=== PATIENT | male | born 1940 | race Caucasian/White ===

== ENCOUNTER 2016-12-23 22:34 | Inpatient (IN) | payer MEDICARE ==
[2016-12-23] MEDS ORDERED: Albuterol Sulfate 2.5 mg/3 ml Neb ONE (22:49)
[2016-12-23] MEDS ORDERED: methylPREDNISolone Sod Succ/PF 125 MG/2 ML VIAL ONE (22:56)
[2016-12-23] MEDS ORDERED: Magnesium 2 GM/NS 0.9% 100 ML 2 GM in Premix Bag 1 BAG IVPB SCH (23:00)
--- NOTE | 2016-12-23 23:04 | RAD ---
CHEST ONE VIEW 12/23/16 HISTORY: Dyspnea. COMPARISON: 07/04/16 FINDINGS: The cardiac silhouette is magnified by projection. Pulmonary vasculature is unremarkable. The lungs r emain hyperinflated with scattered areas of interstitial scarring. Mediastinum is midline with aortic calcification. There is no lobar consolidation or evidence of pneumothorax. site monitor leads ov erlie the chest. IMPRESSION: 1. COPD. 2. Atherosclerosis. POS: [facility]
[2016-12-23 23:12] LABS: Modified Allen's Test POSITIVE; Sodium 134 mmol/L (135-148); Vent NO
[2016-12-23 23:13] LABS: Mode NEB
[2016-12-23 23:59] LABS: #Eosinphils 0.1 thou/uL (0.0-0.7); #Lymphocytes 0.8 thou/uL (1.20-3.40); #Monocytes 0.7 thou/uL (0.11-0.59); #Neutrophils 13.9 thou/uL (1.40-6.50); %Basophils 0.1 % (0.0-1.0); %Eosinophils 0.4 % (0.0-10.0); %Lymphocytes 4.8 % (21.0-51.0); %Monocytes 4.7 % (0.0-10.0); Hematocrit 50.1 % (42.0-52.0); Mean Platelet Volume 8.3 fL (7.4-10.4); Red Blood Cell (RBC) Count 5.38 mill/uL (4.70-6.10); White Blood Cell (WBC) Count 15.5 thou/uL (4.8-10.8)
[2016-12-24 00:03] LABS: Chloride 102 mmol/L (98-107)
[2016-12-24 00:04] LABS: Calcium 9.6 mg/dL (7.8-10.44)
[2016-12-24 00:05] LABS: Globulin 2.9 g/dL (2.4-3.5); Protein, Total 6.9 g/dL (5.8-8.1)
[2016-12-24 00:06] LABS: Anion Gap 14 mmol/L (10-20); Bilirubin, Total 0.8 mg/dL (0.2-1.2); Carbon Dioxide 22 mmol/L (23-31)
[2016-12-24 00:08] LABS: Alkaline Phosphatase 84 U/L (40-150); Calc. Creatinine Clearance 0 mL/min (70-130); Estimated GFR-MDRD 35
[2016-12-24 00:09] LABS: BUN (Urea Nitrogen) 24 mg/dL (8.4-25.7)
[2016-12-24 00:10] LABS: AST (SGOT) 27 U/L (5-34)
[2016-12-24 00:11] LABS: ALT (SGPT) 25 U/L (8-55); CK (CPK) 192 U/L (30-200); Lipase 21 U/L (8-78)
[2016-12-24 00:15] LABS: Troponin I Less than 0.010 ng/mL (< 0.028)
[2016-12-24] MEDS ORDERED: Ondansetron HCl/PF 4 MG/2 ML Vial IVP PRN (03:16)
[2016-12-24] MEDS ORDERED: Artificial Tears 18 DROP/0.9 ML EA EYE PRN (03:16)
[2016-12-24] MEDS ORDERED: Mag-Al 1200 mg/1200 mg/30 ML UDCUP PO PRN (03:16)
[2016-12-24] MEDS ORDERED: hydrALAZINE 20 MG/ML VIAL SLOW IVP PRN (03:16)
[2016-12-24] MEDS ORDERED: Eucerin (Mineral Oil/Petrolatum,White) 30 gm Jar TOP PRN (03:16)
[2016-12-24] MEDS ORDERED: Milk Of Magnesia 30 ML UDCUP PO PRN (03:16)
[2016-12-24] MEDS ORDERED: Dextrose 5% in Water 1,000 ML IV PRN (03:16)
[2016-12-24] MEDS ORDERED: Senokot 8.6 MG TAB PO PRN (03:16)
[2016-12-24] MEDS ORDERED: Dextrose 50% Abboject 50 ML SYRINGE SLOW IVP PRN (03:16)
[2016-12-24] MEDS ORDERED: Benzonatate 100 MG CAP PO PRN (03:16)
[2016-12-24] MEDS ORDERED: Sodium Chloride 0.65% Nasal 44 ML BOT EA NARE PRN (03:16)
[2016-12-24] MEDS ORDERED: Diabetic Tussin 200 MG/10 ML UDCUP PO PRN (03:16)
[2016-12-24] MEDS ORDERED: Loratadine 10 MG TAB PO PRN (03:16)
[2016-12-24] MEDS ORDERED: Ondansetron ODT 4 MG TAB PO PRN (03:16)
[2016-12-24] MEDS ORDERED: Loperamide HCl 2 MG CAP PO PRN (03:16)
[2016-12-24] MEDS ORDERED: cloNIDine 0.1 MG TAB PO PRN (03:16)
--- NOTE | 2016-12-24 04:37 | HP ---
PRIMARY CARE PHYSICIAN: Dr. Joshua Galvez and Dr. Jairon Robert REASON FOR ADMISSION: COPD exacerbation. HISTORY OF PRESENT ILLNESS: A 76-year-old male who has underlying history of COPD and diabetes type 2 as well as history of congestive heart failure who came to emergency room for evaluation of increasing shortness of breath. The patient has a history of shortness of breath for the last couple of days which has gradually getting worse. The patient was seen by primary care physician and he was given prednisone, but his condition did not improve and that is why he decided to come to the emergency room for evaluation. The patient was trying his home nebulizer machine and inhaler without any significant help. The patient denies any sick exposure. He denies any recent travel. He denies any recent upper respiratory infection. He denies any flu-like illness. The patient denies any cough with hemoptysis. He denies any UTI symptoms, constipation or diarrhea, but he does report orthopnea and he does report increasing bilateral lower extremity edema. When the patient presented to emergency room, he was slightly hypoxic. He appeared in respiratory distress. He was given oxygen and Solu-Medrol 125 mg, magnesium sulfate 2 grams and albuterol nebulization therapy. After that, the patient was slightly improved, but not to the point of his baseline. Subsequently, we decided to admit this patient on telemetry floor. PAST MEDICAL HISTORY: COPD, secondary to smoking. He used to be using oxygen at home, but now he is no longer requiring oxygen at home. History of recurrent atrial flutter required ablation, diabetes type 2. The patient is on insulin pump. He is followed by Dr. Sevilla at [facility], gastroesophageal reflux disease, CKD stage 3, gout, hypertension, dyslipidemia, anemia of kidney disease, history of TIA, history of moderate aortic regurgitation. Chronic diastolic heart failure. PAST SURGICAL HISTORY: Cardiac ablation x4. Cyst removed from tailbone. PAST PSYCHIATRIC HISTORY: Reviewed and negative. SOCIAL HISTORY: The patient is an ex-smoker. He quit smoking more than 10 years ago in 1999. He denies any alcohol abuse. He denies any illicit drug abuse. He is and lives at home with his . FAMILY HISTORY: Diabetes runs among several family members. Maternal grandmother was diagnosed with diabetes and father diagnosed with colon cancer. ALLERGIES: Patient is allergic to CLINDAMYCIN, BYETTA, SITAGLIPTIN and SULFA DRUGS. CURRENT HOME MEDICATIONS: Allopurinol 50 mg p.o. daily, aspirin 81 mg p.o. daily, Lipitor 80 mg p.o. at bedtime, Pulmicort nebulizers, Symbicort 2 puff inhalation b.i.d., calcitriol 0.25 mcg p.o. daily, Tums 1000 mg q.i.d. p.r.n., cetirizine 10 mg p.o. daily, vitamin D3 2000 units p.o. daily, Zetia 10 mg p.o. daily, ferrous sulfate 325 mg p.o. daily, Lasix 40 mg p.o. b.i.d., gabapentin 100 mg p.o. t.i.d. p.r.n., Mucinex 600 mg p.o. q.6h., Humalog insulin as per sliding scale, DuoNeb q.6h., lisinopril 2.5 mg p.o. daily, magnesium oxide 400 mg p.o. daily, Bystolic 5 mg p.o. at bedtime, potassium chloride 20 mEq p.o. b.i.d., Spiriva 18 mcg inhalation daily. EMERGENCY ROOM COURSE: The patient is given levofloxacin 750 mg, magnesium sulfate 2 grams, Solu-Medrol 125 mg, albuterol nebulization and IV fluid. REVIEW OF SYSTEMS: The following complete review of systems was negative, unless otherwise mentioned in the HPI or below: Constitutional: Weight loss or gain, ability to conduct usual activities. Skin : Rash, itching. Eyes: Double vision, pain. ENT/Mouth: Nose bleeding, neck stiffness, pain, tenderness. Cardiovascular: Palpitations, dyspnea on exertion , orthopnea. Respiratory: Shortness of breath, wheezing, cough, hemoptysis, fever or night sweats. Gastrointestinal: Poor appetite, abdominal pain, heartburn, nausea, vomiting, constipation, or diarrhea. Genitourinary: Urgency , frequency, dysuria, nocturia. Musculoskeletal: Pain, swelling. Neurologic/ Psychiatric: Anxiety, depression. Allergy/Immunologic: Skin rash, bleeding tendency. Please see my HPI for pertinent positives and negatives. All other review of systems reviewed and negative except as mentioned in the HPI. PHYSICAL EXAMINATION: VITAL SIGNS: On arrival, blood pressure 155/90, pulse 80, respiratory rate 26, saturation 86% on room air, temperature 98.1, weight 106.5 kilograms. GENERAL: The patient is currently alert, awake, mild respiratory distress. HEENT: Head is normocephalic, atraumatic. Eyes: Pupils round, reactive to light. Extraocular muscles intact. ENT: Oropharynx within normal limits. Moist mucous membranes. No oral lesions. No pharyngeal erythema, no exudates. NECK: Supple. No JVD, no thyromegaly, no carotid bruits. LUNGS: Bilateral few end expiratory wheezing heard. Air entry reduced. No rales. CARDIAC: S1, S2 regular, tachycardia, no murmur, no gallop, no rub. ABDOMEN: Soft, bowel sounds present, nontender, nondistended. No organomegaly , no mass, no suprapubic tenderness. Obesity present. EXTREMITIES: Bilateral pitting lower extremity edema noted, more distal pulsation. SKIN: Dry and warm. No rash. HEMATOLOGIC: No lymphadenopathy. PSYCHIATRIC: Normal affect. NEUROLOGIC: Nonfocal examination. The patient is moving all 4 limbs, plantar bilateral flexor. SIGNIFICANT LABS: CBC: WBC 15.5, hemoglobin 15.6, platelet 264 with a left shift. ABG: pH 7.39, CO2 35.2, O2 128.5, bicarbonate 21.8 saturation 98.7. BMP: Sodium 133, potassium 4.9, chloride 102, carbon dioxide 22, anion gap 14, BUN 24, creatinine 1.86, glucose 112, calcium 9.6. LFT: AST 27, ALT 25, alkaline phosphatase 84, albumin 4.0, lipase 21, CK 192, CK-MB 10.9, troponin I less than 0.010. BNP 54.5. EKG based on my review, normal sinus rhythm, first degree AV block, nonspecific ST-T changes. Repeat EKG showed atrial fibrillation with rapid ventricular response, nonspecific ST-T changes. Chest x-ray based on my review, COPD changes without any acute process, chronic changes noted. ASSESSMENT AND PLAN: 1. Acute respiratory failure with hypoxia, likely due to underlying chronic obstructive pulmonary disease exacerbation. We will monitor the patient's oxygen saturation on a daily basis and wean off oxygen if needed. If the patient does need oxygen saturation then will arrange home oxygen before discharge. 2. Chronic obstructive pulmonary disease exacerbation. The patient has not improved with home treatment as well as emergency room treatment did not make him up to his baseline. We will keep this patient in the hospital and continue the Pulmicort nebulization twice daily, DuoNeb q.4h. and Solu-Medrol 20 mg IV q.8h., Mucinex 600 mg q.i.d., and empiric antibiotic therapy with Levaquin 500 mg IV daily. 3. Atrial fibrillation with variable rate control. We will monitor on telemetry floor. If the patient rated remains high, then we will consider adding Cardizem bolus or digoxin p.r.n. basis. 4. Chronic kidney disease stage 3. We will monitor renal function. 5. Dyslipidemia. We will continue Lipitor 80 mg p.o. at bedtime and Zetia 10 mg p.o. daily. 6. Diabetes type 2. We will continue insulin as per aggressive sliding scale per scale. The patient wanted to turn off his insulin pump while in hospital. Upon discharge, the patient will resume his insulin pump. While in hospital we will monitor Accu-Chek a.c. and at bedtime and give him regular insulin as per aggressive sliding scale. 7. Hypertension. We will continue lisinopril 2.5 mg p.o. daily, Bystolic 5 mg p.o. at bedtime. 8. Diabetic neuropathy. We will continue with gabapentin 100 mg t.i.d. p.r.n. 9. Gout. We will continue allopurinol 150 mg p.o. daily. 10. Deep venous thrombosis prophylaxis, heparin 5000 units subcu twice daily. 11. Gastrointestinal prophylaxis, Protonix 40 mg p.o. daily. 12. Obesity with BMI 33. Dietary education given. 13. Bilateral lower extremity edema. We will continue with Lasix 20 mg IV b.i.d. 14. Chronic anticoagulation. We will check PT/INR on daily basis and based on that, we will decide whether we need to continue heparin or resume his warfarin. We will also verify his home medication. CODE STATUS: The patient is FULL CODE. The patient's is surrogate decision maker. Disposition plan based on clinical course. We are expecting patient's stay in hospital more than 2 midnights. MINNA
[2016-12-24] MEDS: Furosemide 20 MG/2 ML VIAL SLOW IVP SCH ×2 (05:37→13:50)
[2016-12-24 05:50] LABS: PTT 42.2 SEC (22.9-36.1); Prothrombin Time 26.8 SEC (12.0-14.7)
[2016-12-24 05:54] LABS: ALT (SGPT) 24 U/L (8-55); AST (SGOT) 23 U/L (5-34); Alkaline Phosphatase 82 U/L (40-150); Anion Gap 18 mmol/L (10-20); BUN (Urea Nitrogen) 27 mg/dL (8.4-25.7); Bilirubin, Total 0.7 mg/dL (0.2-1.2); Calc. Creatinine Clearance 45 mL/min (70-130); Calcium 9.2 mg/dL (7.8-10.44); Carbon Dioxide 18 mmol/L (23-31); Chloride 99 mmol/L (98-107); Estimated GFR-MDRD 31; Globulin 2.7 g/dL (2.4-3.5); Protein, Total 6.6 g/dL (5.8-8.1)
[2016-12-24] MEDS ORDERED: Furosemide 40 MG/4 ML VIAL SLOW IVP SCH (06:00)
[2016-12-24] MEDS: HumaLOG 300 UNITS/3 ML VIAL SC PRN ×4 (06:23→22:30)
[2016-12-24 06:37] LABS: Band 12 % (5-11); Hematocrit 48.4 % (42.0-52.0); Mean Platelet Volume 8.3 fL (7.4-10.4); Neutrophil 83 % (42-75); Red Blood Cell (RBC) Count 5.16 mill/uL (4.70-6.10); White Blood Cell (WBC) Count 20.1 thou/uL (4.8-10.8)
[2016-12-24] MEDS: Budesonide 0.5 MG/2 ML NEB INH SCH ×2 (07:04→18:13)
[2016-12-24] MEDS: Heparin 5,000 UNITS/ML VIAL SC SCH ×2 (09:38→20:33)
--- NOTE | 2016-12-24 11:00 | PDOC.PN ---
- Subjective Encounter Start Date: 12/24/16 Encounter Start Time: 08:00 Subjective: breathing better, still gets sob on min exertion - Objective Resuscitation Status: Resuscitation Status FULL:Full Resuscitation MAR Reviewed: Yes Vital Signs & Weight: Vital Signs (12 hours) Temp Pulse Resp BP Pulse Ox 12/24/16 10:26 84 16 12/24/16 07:25 97.5 F L 98 20 133/74 96 12/24/16 07:08 98 12/24/16 07:04 86 12 12/24/16 04:24 92 L 12/24/16 04:03 99 20 94 L 12/24/16 04:00 97.5 F L 105 H 20 128/71 95 12/24/16 03:16 94 L 12/24/16 02:49 98.8 F 103 H 20 126/80 92 L Weight Weight 242 lb I&O: 12/23/16 12/24/16 12/25/16 06:59 06:59 06:59 Intake Total 212.5 750 Output Total 75 Balance 137.5 750 Result Diagrams: 12/24/16 04:57 12/24/16 04:57 Additional Labs: Accuchecks 12/24/16 06:10 POC Glucose 304 H Phys Exam - Physical Examination HEENT: PERRLA, moist MMs Neck: no JVD, supple Respiratory: no rales, wheezing present Cardiovascular: RRR, no significant murmur Gastrointestinal: soft, non-tender, positive bowel sounds Musculoskeletal: pulses present, edema present Neurological: non-focal, moves all 4 limbs Psychiatric: A&O x 3 Dx/Plan (1) COPD (chronic obstructive pulmonary disease) Status: Chronic Qualifiers: COPD type: COPD with acute exacerbation Qualified Code(s): J44.1 - Chronic obstructive pulmonary disease with (acute) exacerbation (2) Acute and chronic respiratory failure ([id number]) Code(s): J96.20 - ACUTE AND CHR RESP FAILURE, UNSP W HYPOXIA OR HYPERCAPNIA Status: Acute Qualifiers: Respiratory failure complication: hypoxia Qualified Code(s): J96.21 - Acute and chronic respiratory failure with hypoxia (3) HTN (hypertension) Code(s): I10 - ESSENTIAL (PRIMARY) HYPERTENSION Status: Chronic Qualifiers: Hypertension type: essential hypertension Qualified Code(s): I10 - Essential (primary) hypertension (4) Dyslipidemia Code(s): E78.5 - HYPERLIPIDEMIA, UNSPECIFIED Status: Chronic (5) Metabolic acidosis Code(s): E87.2 - ACIDOSIS Status: Acute (6) Chronic kidney disease (CKD) Code(s): N18.9 - CHRONIC KIDNEY DISEASE, UNSPECIFIED Status: Chronic Qualifiers: Chronic kidney disease stage: stage 3 (moderate) Qualified Code(s): N18.3 - Chronic kidney disease, stage 3 (moderate) (7) Diabetes mellitus, insulin dependent (IDDM), controlled Code(s): E11.9 - TYPE 2 DIABETES MELLITUS WITHOUT COMPLICATIONS; Z79.4 - HVAC CONTROLS TECHNICIAN (CURRENT) USE OF INSULIN Status: Chronic (8) History of atrial flutter Code(s): Z86.79 - PERSONAL HISTORY OF OTHER DISEASES OF THE CIRCULATORY SYSTEM Status: Resolved Comment: Multiple previous ablations, currently in NSR, on Coumadin - Plan is on levaquin, solumedrol -: duonebs -: d/w -: may transfer to med floor -: glynn dotson to * . Review of Systems - Medications/Allergies Allergies/Adverse Reactions: Allergies Allergy/AdvReac Type Severity Reaction Status Date / Time exenatide [From Byetta] Allergy Severe Verified 11/17/12 04:50 sitagliptin phosphate Allergy Severe Verified 11/17/12 04:50 [From Januvia] clindamycin Allergy Intermediate Swollen Verified 11/17/12 04:48 Lips erythromycin base Allergy Intermediate Swollen Verified 11/17/12 04:48 [Erythromycin Base] Lips hydrocodone Allergy Intermediate Verified 11/17/12 04:49 Sulfa (Sulfonamide Allergy Intermediate Swollen Verified 11/17/12 04:49 Antibiotics) Lips phenol Allergy Verified 11/17/12 04:50 propoxyphene napsylate Allergy Verified 11/17/12 04:50 [From Darvocet-N 100] Medications: Current Medications Acetaminophen (Tylenol) 650 mg PO Q4H PRN PRN Reason: Headache/Fever or Pain Al Hydroxide/Mg Hydroxide (Maalox) 30 ml PO Q6H PRN PRN Reason: Heartburn or Indigestion Albuterol/Ipratropium (Duoneb) 3 ml NEB [id number] ARELY Last Admin: 12/24/16 10:26 Dose: 3 ml Albuterol/Ipratropium (Duoneb) 3 ml NEB [id number] Artificial Tears (Tears Naturale) 0 drop EA EYE PRN PRN PRN Reason: Dry Eyes Benzonatate (Tessalon) 100 mg PO Q4H PRN PRN Reason: Cough Budesonide (Pulmicort Neb Solution) 0.5 mg INH BID-RT [facility] Last Admin: 12/24/16 07:04 Dose: 0.5 mg Clonidine (Catapres) 0.1 mg PO Q4H PRN PRN Reason: Systolic BP > 180 Dextrose/Water (Dextrose 50%) 25 gm SLOW IVP PRN PRN PRN Reason: Hypoglycemia Furosemide (Lasix) 20 mg SLOW IVP 0600,1400 [facility] Last Admin: 12/24/16 05:37 Dose: 20 mg Glucagon (Glucagon) 1 mg IM PRN PRN PRN Reason: Hypoglycemia Guaifenesin (Robitussin Sf) 200 mg PO Q4H PRN PRN Reason: Cough Heparin Sodium (Porcine) (Heparin) 5,000 units SC BID [facility] Last Admin: 12/24/16 09:38 Dose: 5,000 units Hydralazine HCl (Apresoline) 10 mg SLOW IVP Q4H PRN PRN Reason: Systolic BP > 180 Dextrose/Water (D5w) 1,000 mls @ 0 mls/hr IV .Q0M PRN; As Directed PRN Reason: Hypoglycemia Insulin Human Lispro (Humalog) 0 units SC .AGGRESSIVE SLIDING PRN PRN Reason: Aggressive Correctional Scale Last Admin: 12/24/16 06:23 Dose: 11 unit Insulin Human Lispro (Humalog) 0 units SC .BEDTIME SLIDING SC PRN PRN Reason: Bedtime Correctional Scale Levofloxacin (Levaquin) 500 mg PO 0600 [facility] Loperamide HCl (Imodium) 2 mg PO PRN PRN PRN Reason: Diarrhea/Loose Stools Loratadine (Claritin) 10 mg PO DAILYPRN PRN PRN Reason: Sinus Symptoms Magnesium Hydroxide (Milk Of Magnesium) 30 ml PO DAILYPRN PRN PRN Reason: Constipation Methylprednisolone Sodium Succinate (Solu-Medrol) 20 mg IVP Q8HR [facility] Last Admin: 12/24/16 05:37 Dose: 20 mg Mineral Oil/White Petrolatum (Eucerin Cream) 0 gm TOP BIDPRN PRN PRN Reason: Dry Skin Mometasone Furoate/Formoterol Fumar (Dulera 200 Mcg/5 Mcg Inhaler) 2 puff INH BID-RT [facility] Ondansetron HCl (Zofran Odt) 4 mg PO Q6H PRN PRN Reason: Nausea/Vomiting Ondansetron HCl (Zofran) 4 mg IVP Q6H PRN PRN Reason: Nausea/Vomiting Pantoprazole Sodium (Protonix) 40 mg PO DAILY [facility] Last Admin: 12/24/16 09:39 Dose: 40 mg Senna (Senokot) 2 tab PO HSPRN PRN PRN Reason: Constipation Sodium Chloride ([place] Nasal [place] 0.65%) 0 ml EA NARE QIDPRN PRN PRN Reason: Nasal Congestion Sodium Chloride (Flush - Normal Saline) 10 ml IVF Q12HR [facility] Last Admin: 12/24/16 09:40 Dose: 10 ml Sodium Chloride (Flush - Normal Saline) 10 ml IVF PRN PRN PRN Reason: Saline Flush
[2016-12-24] MEDS: Mometasone/Formoterol 120 PUFF INHALER INH SCH (18:15)
--- NOTE | 2016-12-24 23:41 | CON ---
DATE OF CONSULTATION: 12/24/2016 HISTORY OF PRESENT ILLNESS: Edmundo Joyner is a 76-year-old gentleman who is well known to me, has sev ere end-stage COPD, secondary pneumonia, tobacco abuse, presented with a 2-day history of increased s hortness of breath and cough, unresponsive to usual medication. Initially, the sputum was yellow, th is morning it is clear. He has noticed orthopnea, PND, and lower extremity swelling. He was given prednisone tapering doses by his primary care physician 2 days ago. Yet to start his me dication. PAST MEDICAL HISTORY: COPD, chronic renal failure, probably diastolic dysfunction, severe deconditio warren, diabetes, reflux, SVT, and obesity. SOCIAL HISTORY: Former smoker, a pack a day, quit smoking 20 years ago. PAST SURGICAL HISTORY: Ablation and some kind of surgery on his back. MULTIPLE ALLERGIES: CLINDAMYCIN, ERYTHROMYCIN, SULFA. MEDICATIONS: From home includes Mucinex, Coumadin, Spiriva, Symbicort, DuoNeb, insulin, gabapentin, Lasix 40, Zetia 10, calcium, aspirin, and allopurinol. REVIEW OF SYSTEMS: Otherwise negative. PHYSICAL EXAMINATION: VITAL SIGNS: His O2 sat is 96.2 liters, temperature 97, respiration 16, and blood pressure 133/74. CHEST: Decreased breath sounds, prolonged expiration. Crackles with minimal wheezing. CARDIAC: Normal S1, S2. No gallops. ABDOMEN: Massive. EXTREMITIES: 2+ edema. LABORATORY DATA: White count 20,000, H&H 14 and 48, platelet count 262. INR is 2.4, pO2 was 128, pC O2 37, pH 7.37, 50%. Creatinine is 2.0. X-ray shows no acute infiltrates. IMPRESSION: 1. Acute on chronic respiratory failure, end-stage chronic obstructive pulmonary disease, bronchitis , has pneumonia. 2. Renal failure. 3. Previous supraventricular tachycardia. 4. Chronic diastolic dysfunction, morbid obesity, diabetes. PLAN: Continue neb treatment with Dulera, supportive care, steroids. Ambulation early. Will follow.
[2016-12-25] MEDS: HumaLOG 300 UNITS/3 ML VIAL SC PRN ×2 (06:35→17:21)
[2016-12-25] MEDS: Furosemide 20 MG/2 ML VIAL SLOW IVP SCH ×2 (06:35→13:27)
[2016-12-25] MEDS: Mometasone/Formoterol 120 PUFF INHALER INH SCH ×2 (06:51→19:30)
[2016-12-25] MEDS: Budesonide 0.5 MG/2 ML NEB INH SCH (06:51)
[2016-12-25] MEDS: Heparin 5,000 UNITS/ML VIAL SC SCH ×2 (08:28→21:39)
--- NOTE | 2016-12-25 12:10 | PRG ---
DATE OF SERVICE: 12/25/2016 SUBJECTIVE: Mr. Edmundo Joyner had a bad night last night, increased shortness breath, cough, unrespon sive to usual medication. Still getting neb treatments, steroids, and antibiotics. OBJECTIVE: VITAL SIGNS: His blood pressure is 127/71, sats are 90% on 3 liters, temperature 96, respirations 18 . CHEST: Decreased breath sounds, prolonged expiration. CARDIAC: Normal S1, S2. ABDOMEN: Soft, no masses. IMPRESSION: COPD exacerbation with bronchitis. Continue neb treatments, continue Dulera, antibiotics, supportive care. I will follow.
[2016-12-25] MEDS: guaiFENesin ER 600 MG TAB PO SCH (13:27)
--- NOTE | 2016-12-25 13:39 | PDOC.PN ---
- Subjective Encounter Start Date: 12/25/16 Encounter Start Time: 13:37 Mr. Joyner was seen today in follow-up of COPD exacerbation. He says he is not breathing very well right now. He feels worse than this morning. - Objective Resuscitation Status: Resuscitation Status FULL:Full Resuscitation MAR Reviewed: Yes Vital Signs & Weight: Vital Signs (12 hours) Temp Pulse Resp BP Pulse Ox 12/25/16 10:26 87 20 97 12/25/16 08:06 96.3 F L 93 18 128/71 96 12/25/16 08:00 97.9 F 93 18 96 12/25/16 06:45 87 24 H 88 L 12/25/16 04:00 97.9 F 92 20 143/72 H 91 L 12/25/16 03:13 88 20 82 L Weight Weight 242 lb I&O: 12/24/16 12/25/16 12/26/16 06:59 06:59 06:59 Intake Total 212.5 1520 Output Total 75 Balance 137.5 1520 Result Diagrams: 12/24/16 04:57 12/24/16 04:57 Additional Labs: Accuchecks 12/25/16 12/25/16 12/24/16 11:16 06:34 21:02 POC Glucose 245 H 233 H 254 H 12/24/16 16:53 POC Glucose 278 H Phys Exam - Physical Examination HEENT: PERRLA Respiratory: wheezing present + rales, and rhonchi Cardiovascular: RRR, no significant murmur, no rub Gastrointestinal: soft, non-tender, positive bowel sounds Musculoskeletal: edema present 1-2 + pitting edema in the lower extremities Dx/Plan - Plan * Acute on chronic respiratory failure with hypoxemia- patient symptoms are waxing and waning. Will check a stat CXR and ABG * He is receiving his scheduled dose of Lasix, and Solumedrol right now * He may need to be moved to IM if he does not improve soon * HTN- will re-start Lisinopril and bystolic * DM- blood glucose is elevated- will start Levemir- equivalent to his Lantus dose along with a SSI * AFIB- his heart rate is controlled- will re-start Coumadin and Monitor his PT/ INT.
[2016-12-25 14:01] LABS: Oxyhemoglobin 90.8 % (94.0-97.0); Sodium 126 mmol/L (135-148)
[2016-12-25 14:03] LABS: Mode NC; Modified Allen's Test POSITIVE; Vent NO
[2016-12-25] MEDS: Gabapentin 100 MG CAP PO SCH (15:00)
--- NOTE | 2016-12-25 15:21 | RAD ---
PORTABLE CHEST: Date: 12/25/16 HISTORY: Shortness of breath. COMPARISON: 12/23/16. FINDINGS: Heart size is borderline. There are atherosclerotic changes of the aorta. Lungs are clear of infiltra ritika. No signs of failure. IMPRESSION: Borderline heart size. POS: [facility]
[2016-12-25] MEDS ORDERED: Warfarin Sodium 2.5 MG TAB PO SCH (17:00)
--- NOTE | 2016-12-25 17:08 | PDOC.EVN ---
Event Note - Event Note Event Note: Returned to re-evaluate Mr. Joyner. He says he does not feel much better. He continues to have some rhocnhi and wheezing bilaterally, a little better than earlier. However he appears fatigued. CXR reviewed, as well as ABG- Will move him to [facility]. He may require BiPAP. Will notify Dr. Steve.
[2016-12-25] MEDS ORDERED: Lorazepam 2 MG/ML VIAL SLOW IVP PRN ×2 (17:10→20:31)
[2016-12-25 20:00] LABS: Sodium 126 mmol/L (135-148)
--- NOTE | 2016-12-25 20:04 | PDOC.PN ---
- Subjective Encounter Start Date: 12/25/16 Encounter Start Time: 20:00 - Objective Resuscitation Status: Resuscitation Status FULL:Full Resuscitation Vital Signs & Weight: Vital Signs (12 hours) Temp Pulse Resp BP Pulse Ox 12/25/16 19:34 97 12/25/16 19:30 97 12/25/16 19:24 96 24 H 97 12/25/16 19:00 96.9 F L 24 H 130/97 H 83 L 12/25/16 16:20 97.4 F L 93 18 134/81 94 L 12/25/16 13:51 91 24 H 12/25/16 10:26 87 20 97 12/25/16 08:06 96.3 F L 93 18 128/71 96 Weight Weight 242 lb I&O: 12/24/16 12/25/16 12/26/16 06:59 06:59 06:59 Intake Total 212.5 1520 Output Total 75 Balance 137.5 1520 Result Diagrams: 01/03/17 04:20 01/03/17 04:20 Additional Labs: Accuchecks 12/25/16 12/25/16 12/25/16 16:17 11:16 06:34 POC Glucose 273 H 245 H 233 H 12/24/16 21:02 POC Glucose 254 H Dx/Plan - Plan * .
[2016-12-25] MEDS ORDERED: Midazolam HCl 2 mg/2 ml Vial ONE (20:08)
[2016-12-25] MEDS ORDERED: Propofol 1,000 MG/100 ML VIAL IV ONE (20:09)
--- NOTE | 2016-12-25 20:27 | RAD ---
CHEST ONE VIEW 12/25/16 HISTORY: Intubation. COMPARISON: Chest one view same day. FINDINGS: Although this is a post intubation radiograph, no endotracheal tube tip is seen. IMPRESSION: No endotracheal tube tip seen. POS: [facility]
[2016-12-25 20:28] LABS: Mode 15L NONREBREATHER; Modified Allen's Test POSITIVE; Vent NO
[2016-12-25] MEDS ORDERED: Ventilator Sedation Protocol 1 EACH FS SCH (20:30)
[2016-12-25] MEDS ORDERED: Fentanyl 20 MCG/ML 250 ML IVPB SCH (20:31)
[2016-12-25] MEDS ORDERED: DISCONTINUE PREVIOUS NARCOTIC PAIN MEDICATIONS AND BENZODIAZEPINES FS SCH (20:31)
[2016-12-25] MEDS ORDERED: Morphine PF 1 MG/ML SYR IVP PRN (20:45)
[2016-12-25] MEDS: Sodium Chloride 0.9% 1,000 ML IV SCH (21:15)
[2016-12-25 21:33] LABS: Oxyhemoglobin 93.1 % (94.0-97.0); Sodium 126 mmol/L (135-148)
[2016-12-25 21:38] LABS: Mechanical Tidal Volume 500 ml; Mode SIMV; Modified Allen's Test POSITIVE; Pressure Support 10 cmH2O; Vent YES
[2016-12-25] MEDS: STERILE WATER IVPB SCH (21:58)
[2016-12-25] MEDS: CEFEPIME IVPB SCH (21:58)
--- NOTE | 2016-12-25 23:50 | PRG ---
DATE OF SERVICE: 12/25/2016 SUBJECTIVE: Edmundo Joyner was transferred to the telemetry unit early in the evening. He became prog ressively agitated and confused. He did not tolerate his BiPAP. He became further agitated, deliriu m, trying to get out of bed, took out his oxygen, his saturations were in the 70s. He was transferred to the ICU where he was clearly agitated, pupils are rolled over. I spoke to his at length. She said she wants everything to be done. She does know that his condition is such that he has end-stage COPD. Therefore, after discussing with her, it was felt that he needs to be intubated, unable to open his m outh. He was given 1 mg of Versed. He was bagged in spite of this, did not open his mouth, prepped his right nostril with lidocaine jelly, and #7.5 tube was passed with a bronchoscope via the right no stril via the vocal cords into his trachea. The tube was secured. He was bagged. Both lungs were l avaged with normal saline. No endobronchial disease was seen. There was some blood seen in the trac hea secondary to nasal intubation. He is now connected to a warm cycle respirator. OBJECTIVE: VITAL SIGNS: His sats are 99%, blood pressure is 170/80, respirations are 20. CHEST: Decreased breath sounds, prolonged expiration. CARDIAC: Sinus tachycardia. ABDOMEN: Soft. No masses. IMPRESSION: 1. Respiratory failure, end-stage chronic obstructive pulmonary disease. 2. Diabetes. 3. Encephalopathy secondary to respiratory failure. PLAN: Sedation protocol, IV antibiotics, steroids, neb treatments, supportive care. The family understands the long-term prognosis is grave. We will follow in the ICU. This is a 30-minute critical care time exclusive of the intubation.
[2016-12-26] MEDS: guaiFENesin ER 600 MG TAB PO SCH ×4 (01:30→22:12)
[2016-12-26] MEDS: Nebivolol HCl 5 MG TAB PO SCH ×2 (01:30→22:13)
[2016-12-26] MEDS: Gabapentin 100 MG CAP PO SCH ×5 (01:30→22:12)
[2016-12-26] MEDS: Insulin Detemir 100 UNITS/ML 50 UNITS in Pre-Filled Syringe SC SCH ×2 (01:32→22:13)
[2016-12-26] MEDS: Propofol 1,000 MG/100 ML VIAL IV PRN ×4 (01:33→22:09)
[2016-12-26 04:52] LABS: Anion Gap 15 mmol/L (10-20); BUN (Urea Nitrogen) 47 mg/dL (8.4-25.7); Calc. Creatinine Clearance 43 mL/min (70-130); Calcium 8.7 mg/dL (7.8-10.44); Carbon Dioxide 21 mmol/L (23-31); Chloride 94 mmol/L (98-107); Estimated GFR-MDRD 29
[2016-12-26 05:43] LABS: Prothrombin Time 31.9 SEC (12.0-14.7)
[2016-12-26 06:22] LABS: Band 6 % (5-11); Hematocrit 47.5 % (42.0-52.0); Hypochromia SLIGHT = 6-15 cells (100X) (0-5/hpf); Mean Platelet Volume 8.2 fL (7.4-10.4); Neutrophil 80 % (42-75); Red Blood Cell (RBC) Count 5.12 mill/uL (4.70-6.10); White Blood Cell (WBC) Count 27.9 thou/uL (4.8-10.8)
[2016-12-26 06:35] LABS: Oxyhemoglobin 95.3 % (94.0-97.0); Sodium 126 mmol/L (135-148)
[2016-12-26 06:36] LABS: Mechanical Tidal Volume 500 ml; Mode SIMV/PS; Modified Allen's Test POSITIVE; Pressure Support 10 cmH2O; Vent YES
[2016-12-26] MEDS: HumaLOG 300 UNITS/3 ML VIAL SC PRN ×4 (06:38→22:14)
[2016-12-26] MEDS: Mometasone/Formoterol 120 PUFF INHALER INH SCH ×2 (06:57→19:01)
[2016-12-26] MEDS: Allopurinol 100 MG TAB PO SCH ×2 (08:28→09:55)
[2016-12-26] MEDS: Lisinopril 2.5 MG TAB PO SCH ×2 (08:28→09:55)
[2016-12-26] MEDS: Calcitriol 0.25 MCG CAP PO SCH ×2 (08:28→09:55)
[2016-12-26] MEDS: Heparin 5,000 UNITS/ML VIAL SC SCH (08:34)
[2016-12-26] MEDS: Sodium Chloride 0.9% 1,000 ML IV SCH ×3 (08:37→17:27)
[2016-12-26] MEDS: STERILE WATER IVPB SCH ×2 (09:12→22:12)
[2016-12-26] MEDS: CEFEPIME IVPB SCH ×2 (09:12→22:12)
--- NOTE | 2016-12-26 09:24 | RAD ---
CHEST 1 VIEW: Date: 12/26/16 HISTORY: Respiratory distress. COMPARISON: Prior day's study. FINDINGS: Heart size is borderline for portable technique. Endotracheal tube remains in satisfactory position. The lungs are clear of infiltrates. IMPRESSION: Stable exam. POS: [facility]
--- NOTE | 2016-12-26 10:31 | PDOC.PN ---
- Subjective Encounter Start Date: 12/26/16 Encounter Start Time: 08:45 -: old records requested/rev pt is nasally intubated, sedated, bedside, - Objective Resuscitation Status: Resuscitation Status FULL:Full Resuscitation MAR Reviewed: Yes Vital Signs & Weight: Vital Signs (12 hours) Temp Pulse Resp BP Pulse Ox 12/26/16 09:59 25 H 12/26/16 09:58 96 116/64 12/26/16 09:55 96 116/64 12/26/16 08:46 97 100/53 L 12/26/16 08:28 101 H 12/26/16 08:00 98.5 F 101 H 20 100 12/26/16 07:00 98.5 F 12/26/16 06:58 90 115/64 12/26/16 06:00 20 12/26/16 03:47 98 102/68 12/26/16 03:46 100 12/26/16 01:06 99 12/26/16 01:05 99 12/26/16 00:00 25 H Weight Weight 237 lb 14.06 oz Most Recent Monitor Data Heart Rate from ECG 97 NIBP 104/81 NIBP BP-Mean 87 Respiration from ECG 19 SpO2 100 I&O: 12/25/16 12/26/16 12/27/16 06:59 06:59 06:59 Intake Total 1520 494 10 Output Total 915 95 Balance 1520 -421 -85 Result Diagrams: 12/26/16 03:33 12/26/16 03:33 Additional Labs: Accuchecks 12/26/16 12/25/16 12/25/16 06:35 22:03 16:17 POC Glucose 217 H 180 H 273 H 12/25/16 11:16 POC Glucose 245 H Radiology Reviewed by me: Yes (chest xray) EKG Reviewed by me: Yes (tachycardia) Phys Exam - Physical Examination Constitutional: NAD intubated, sedated HEENT: PERRLA, moist MMs, sclera anicteric Neck: no JVD, supple Respiratory: no wheezing, no rales, no rhonchi Cardiovascular: RRR, no significant murmur, no rub tachcardia Gastrointestinal: soft, no distention, positive bowel sounds Musculoskeletal: pulses present, edema present Lymphatic: no nodes Skin: no rash, normal turgor Dx/Plan (1) Acute metabolic encephalopathy Code(s): G93.41 - METABOLIC ENCEPHALOPATHY Status: Acute Comment: CO2 narcosis (2) Acute on chronic respiratory failure with hypoxia and hypercapnia Code(s): J96.21 - ACUTE AND CHRONIC RESPIRATORY FAILURE WITH HYPOXIA; J96.22 - ACUTE AND CHRONIC RESPIRATORY FAILURE WITH HYPERCAPNIA Status: Acute Comment : nasally intubated (3) Acute worsening of stage 3 chronic kidney disease Code(s): N18.3 - CHRONIC KIDNEY DISEASE, STAGE 3 (MODERATE) Status: Acute (4) COPD exacerbation Code(s): J44.1 - CHRONIC OBSTRUCTIVE PULMONARY DISEASE W (ACUTE) EXACERBATION Status: Acute (5) Hyponatremia Code(s): E87.1 - HYPO-OSMOLALITY AND HYPONATREMIA Status: Acute (6) Chronic anticoagulation Code(s): Z79.01 - GRAVEL ROOFER (CURRENT) USE OF ANTICOAGULANTS Status: Chronic (7) Chronic diastolic (congestive) heart failure Code(s): I50.32 - CHRONIC DIASTOLIC (CONGESTIVE) HEART FAILURE Status: Chronic (8) Diabetes mellitus, insulin dependent (IDDM), controlled Code(s): E11.9 - TYPE 2 DIABETES MELLITUS WITHOUT COMPLICATIONS; Z79.4 - RESIDENTIAL (CURRENT) USE OF INSULIN Status: Chronic (9) Diabetic neuropathy Code(s): E11.40 - TYPE 2 DIABETES MELLITUS WITH DIABETIC NEUROPATHY, UNSP Status: Chronic (10) Dyslipidemia Code(s): E78.5 - HYPERLIPIDEMIA, UNSPECIFIED Status: Chronic (11) GERD (gastroesophageal reflux disease) Code(s): K21.9 - GASTRO-ESOPHAGEAL REFLUX DISEASE WITHOUT ESOPHAGITIS Status: Chronic (12) Gout Code(s): M10.9 - GOUT, UNSPECIFIED Status: Chronic (13) HTN (hypertension) Code(s): I10 - ESSENTIAL (PRIMARY) HYPERTENSION Status: Chronic Qualifiers: Hypertension type: essential hypertension Qualified Code(s): I10 - Essential (primary) hypertension (14) Obesity (BMI 30.0-34.9) Code(s): E66.9 - OBESITY, UNSPECIFIED Status: Chronic (15) Paroxysmal atrial fibrillation Code(s): I48.0 - PAROXYSMAL ATRIAL FIBRILLATION Status: Chronic - Plan cont current plan of care, plan discussed w/ family, continue antibiotics, respiratory therapy * prognosis is guarded * vent management as per pulmonary * test result and condition discussed with bedside * medication reviewed as below * symptomatic treatment. * continue cefepime * monitor daily labs Review of Systems - Review of Systems Other: unable to review as pt is intubated and sedated - Medications/Allergies Allergies/Adverse Reactions: Allergies Allergy/AdvReac Type Severity Reaction Status Date / Time exenatide [From Byetta] Allergy Severe Verified 11/17/12 04:50 sitagliptin phosphate Allergy Severe Verified 11/17/12 04:50 [From Januvia] clindamycin Allergy Intermediate Swollen Verified 11/17/12 04:48 Lips erythromycin base Allergy Intermediate Swollen Verified 11/17/12 04:48 [Erythromycin Base] Lips hydrocodone Allergy Intermediate Verified 11/17/12 04:49 Sulfa (Sulfonamide Allergy Intermediate Swollen Verified 11/17/12 04:49 Antibiotics) Lips phenol Allergy Verified 11/17/12 04:50 propoxyphene napsylate Allergy Verified 11/17/12 04:50 [From Darvocet-N 100] Medications: Current Medications Acetaminophen (Tylenol) 650 mg PO Q4H PRN PRN Reason: Headache/Fever or Pain Al Hydroxide/Mg Hydroxide (Maalox) 30 ml PO Q6H PRN PRN Reason: Heartburn or Indigestion Albuterol/Ipratropium (Duoneb) 3 ml NEB [id number] [facility] Last Admin: 12/26/16 09:57 Dose: 3 ml Allopurinol (Zyloprim) 50 mg PO DAILY [facility] Last Admin: 12/26/16 09:55 Dose: 50 mg Artificial Tears (Tears Naturale) 0 drop EA EYE PRN PRN PRN Reason: Dry Eyes Aspirin (Aspirin Chewable) 81 mg PO DAILY [facility] Last Admin: 12/26/16 09:54 Dose: 81 mg Benzonatate (Tessalon) 100 mg PO Q4H PRN PRN Reason: Cough Calcitriol (Rocaltrol) 0.25 mcg PO DAILY [facility] Last Admin: 12/26/16 09:55 Dose: 0.25 mcg Clonidine (Catapres) 0.1 mg PO Q4H PRN PRN Reason: Systolic BP > 180 Dextrose/Water (Dextrose 50%) 25 gm SLOW IVP PRN PRN PRN Reason: Hypoglycemia Gabapentin (Neurontin) 100 mg PO TID [facility] Last Admin: 12/26/16 09:54 Dose: 100 mg Glucagon (Glucagon) 1 mg IM PRN PRN PRN Reason: Hypoglycemia Guaifenesin (Mucinex) 1,200 mg PO Q12HR [facility] Last Admin: 12/26/16 09:55 Dose: 1,200 mg Hydralazine HCl (Apresoline) 10 mg SLOW IVP Q4H PRN PRN Reason: Systolic BP > 180 Dextrose/Water (D5w) 1,000 mls @ 0 mls/hr IV .Q0M PRN; As Directed PRN Reason: Hypoglycemia Insulin Detemir 50 units/ (Miscellaneous Medication) 0.5 mls @ 0 mls/hr SC HS [facility] Last Admin: 12/26/16 01:32 Dose: 0.5 mls Cefepime HCl 1 gm/ Sterile (Water) 10 mls @ 120 mls/hr IVPB Q12HR [facility] Last Admin: 12/26/16 09:12 Dose: 10 mls Fentanyl (Fentanyl Cadd) 250 mls @ 0 mls/hr IVPB INF ARELY; Titrate PRN Reason: Protocol Stop: 01/24/17 20:31 Fentanyl Citrate (Fentanyl Bolus) 250 mls @ 0 mls/hr IVPB PRN PRN; As Directed PRN Reason: VENTILATION SEDATION PROTOCOL Stop: 01/24/17 20:31 Sodium Chloride (Normal Saline 0.9%) 1,000 mls @ 100 mls/hr IV .Q10H [facility] Last Admin: 12/26/16 09:11 Dose: Not Given Insulin Human Lispro (Humalog) 0 units SC .AGGRESSIVE SLIDING PRN PRN Reason: Aggressive Correctional Scale Last Admin: 12/26/16 06:38 Dose: 6 unit Insulin Human Lispro (Humalog) 0 units SC .BEDTIME SLIDING SC PRN PRN Reason: Bedtime Correctional Scale Last Admin: 12/24/16 22:30 Dose: 3 unit Lisinopril (Zestril) 2.5 mg PO DAILY [facility] Last Admin: 12/26/16 09:55 Dose: 2.5 mg Loperamide HCl (Imodium) 2 mg PO PRN PRN PRN Reason: Diarrhea/Loose Stools Loratadine (Claritin) 10 mg PO DAILYPRN PRN PRN Reason: Sinus Symptoms Lorazepam (Ativan) 2 mg SLOW IVP Q2H PRN PRN Reason: Anxiety to achieve Florian 2-3 Stop: 01/24/17 20:31 Magnesium Hydroxide (Milk Of Magnesium) 30 ml PO DAILYPRN PRN PRN Reason: Constipation Methylprednisolone Sodium Succinate (Solu-Medrol) 40 mg IVP Q8HR [facility] Last Admin: 12/26/16 06:38 Dose: 40 mg Mineral Oil/White Petrolatum (Eucerin Cream) 0 gm TOP BIDPRN PRN PRN Reason: Dry Skin Miscellaneous Medication (Ventilator Sedation Protocol) 1 each FS ONE [facility] Stop: 01/24/17 20:31 Mometasone Furoate/Formoterol Fumar (Dulera 200 Mcg/5 Mcg Inhaler) 2 puff INH BID-RT [facility] Last Admin: 12/26/16 06:57 Dose: Not Given Morphine Sulfate (Duramorph) 2 mg IVP Q2H PRN PRN Reason: TO ACHIEVE COOPER SCORE 2-3 Stop: 01/24/17 20:31 Nebivolol (Bystolic) 5 mg PO HS [facility] Last Admin: 12/26/16 01:30 Dose: Not Given Discontinue Previous Narcotic Pain Medications And Benzodiazepines 1 each FS .ONE [facility] Stop: 01/24/17 20:31 Ondansetron HCl (Zofran Odt) 4 mg PO Q6H PRN PRN Reason: Nausea/Vomiting Ondansetron HCl (Zofran) 4 mg IVP Q6H PRN PRN Reason: Nausea/Vomiting Pantoprazole Sodium (Protonix) 40 mg PO DAILY [facility] Last Admin: 12/26/16 09:54 Dose: 40 mg Propofol (Diprivan) 1,000 mg IV INF PRN; Protocol PRN Reason: TO ACHIEVE FLORIAN SCORE 2-3 Stop: 01/24/17 20:31 Last Admin: 12/26/16 08:37 Dose: 1,000 mg Senna (Senokot) 2 tab PO HSPRN PRN PRN Reason: Constipation Sodium Chloride ([place] Nasal [place] 0.65%) 0 ml EA NARE QIDPRN PRN PRN Reason: Nasal Congestion Last Admin: 12/24/16 20:33 Dose: 1 each Sodium Chloride (Flush - Normal Saline) 10 ml IVF Q12HR [facility] Last Admin: 12/26/16 08:29 Dose: Not Given Sodium Chloride (Flush - Normal Saline) 10 ml IVF PRN PRN PRN Reason: Saline Flush
--- NOTE | 2016-12-26 10:44 | PRG ---
DATE OF SERVICE: 12/26/2016 RENAL MEDICINE SUBJECTIVE: Mr. Joyner is a 76-year-old white male who was admitted for shortness of breath. He was d iagnosed to have COPD exacerbation. He is currently being intubated due to worsening respiratory sta tus. We are now being consulted for his chronic renal failure. His creatinine is slightly elevated from baseline. Please note he has an underlying diabetic nephropathy. REVIEW OF SYSTEMS: Not obtainable since the patient is sedated and intubated. MEDICATIONS: Currently on allopurinol 50 mg tablet daily, DuoNeb q.3 hours, aspirin 81 mg tablet onc e a day, calcitriol 0.25 mcg tablet daily, gabapentin 100 mg p.o. t.i.d., Lantus 35 units subcutaneou s b.i.d., Humalog sliding scale, Zestril 2.5 mg daily, Dulera as directed, Bystolic 5 mg at bedtime, atorvastatin 80 mg at bedtime, Protonix 40 mg tablet once a day, normal saline at 100 mL per hour. PAST MEDICAL HISTORY: Includes the followin. Type 2 diabetes mellitus. 2. Chronic renal failure from diabetic nephropathy. 3. Secondary hyperparathyroidism. 4. COPD. 5. Hyperlipidemia. 6. Diabetic neuropathy. 7. Paroxysmal AFIB. 8. He has coronary artery disease. 9. Status post TIA. PAST SURGICAL HISTORY: Patient is status post cardiac catheterization, status post cardiac ablation. SOCIAL HISTORY: The patient is a retired assistant professor of nursing. , three children. Lives in the [facility]. Used to smoke but quit in 1989. No alcohol use. No IV drug use. Sedentary lifestyle. FAMILY HISTORY: No family history of ESRD. ALLERGIES: Unknown. TRAUMA: None. IMMUNIZATION: Up-to-date. HOSPITALIZATION: Please see past medical history. PHYSICAL EXAMINATION: VITAL SIGNS: Blood pressure is 116/64, heart rate 97, respiratory rate 21, pulse ox 99%. GENERAL: Noted to be intubated, sedated and ventilator support. SKIN: Adequate turgor. HEENT: Pinkish conjunctiva. Anicteric sclerae. NECK: No neck mass, no carotid bruits, no JVD. CHEST: No deformities. LUNGS: Decreased breath sounds. Occasional wheezing. HEART: Normal sinus rhythm. No murmur, no gallops, no rubs. ABDOMEN: Globular, soft, nontender. EXTREMITIES: No edema. LABORATORY DATA AND IMAGING: Laboratories of 12/26/2016; white count 27.9, hemoglobin 14.5, sodium 1 25, potassium 5, chloride 94, carbon dioxide 21, BUN 47, creatinine 2.19, calcium is 8.7. Further review of his creatinine shows, on 12/24/2016 creatinine was 2.09. Chest x-ray, no infiltrates, no evidence of CHF. ASSESSMENT AND PLAN: 1. Chronic renal failure secondary to presumed diabetic nephropathy. 2. Acute kidney injury, superimposed prerenal azotemia. Continue current management. Agree to hold off the lisinopril. Agree with current empiric volume repletion and normal saline at 100 mL per mary r. There is no indication for any dialytic intervention. Case discussed at length with the and daughter. 3. Chronic obstructive pulmonary disease exacerbation - patient has gone into acute respiratory fail ure, currently intubated on ventilator support. Continue supportive care. Patient is on empiric joann roids as well as on ventilatory support. Overall, prognosis remains guarded.
--- NOTE | 2016-12-26 13:31 | PRG ---
DATE OF SERVICE: 12/26/2016 SUBJECTIVE: Intubated on the vent, sedated. OBJECTIVE: VITAL SIGNS: Pulse is 97, blood pressure 100/70, sats 90%, respirations 18. His I's and O's over th e last 24 hours are difficult to assess. CHEST: Decreased breath sounds with prolonged expiration. CARDIAC: Normal S1, S2. No gallops. ABDOMEN: Soft but distended. LABORATORY DATA: X-ray is clear. White count 27.9, H&H 14 and 47, platelet count 52, 80 segs, 6 paul trophils, PO2 is 97, PCO2 46, pH 7.30 rate of 20, 40%. Sodium 125, BUN and creatinine are 47 and 2.19, glucose 217. IMPRESSION: 1. Acute on chronic respiratory failure. 2. Major encephalopathy. 3. Diabetes. 4. Renal failure. 5. Electrolyte imbalance. PLAN: Continue normal saline. Await results of his echo. Minimize sedation. Discontinue the Couma din and heparin and monitor levels. Start PT, nutrition, antibiotics and steroids. We will follow. One half hour critical care time.
[2016-12-27] MEDS: Sodium Chloride 0.9% 1,000 ML IV SCH ×2 (03:00→15:33)
[2016-12-27 04:30] LABS: Prothrombin Time 31.6 SEC (12.0-14.7)
[2016-12-27 04:43] LABS: Anion Gap 13 mmol/L (10-20); BUN (Urea Nitrogen) 52 mg/dL (8.4-25.7); Calc. Creatinine Clearance 46 mL/min (70-130); Calcium 8.4 mg/dL (7.8-10.44); Carbon Dioxide 21 mmol/L (23-31); Chloride 99 mmol/L (98-107); Estimated GFR-MDRD 32
[2016-12-27 04:47] LABS: Band 4 % (5-11); Hematocrit 43.8 % (42.0-52.0); Mean Platelet Volume 7.7 fL (7.4-10.4); Neutrophil 90 % (42-75); Red Blood Cell (RBC) Count 4.69 mill/uL (4.70-6.10); White Blood Cell (WBC) Count 21.3 thou/uL (4.8-10.8)
[2016-12-27] MEDS: HumaLOG 300 UNITS/3 ML VIAL SC PRN ×4 (05:13→21:47)
[2016-12-27] MEDS: Propofol 1,000 MG/100 ML VIAL IV PRN (05:47)
[2016-12-27] MEDS: Mometasone/Formoterol 120 PUFF INHALER INH SCH ×2 (06:51→19:28)
[2016-12-27 07:12] LABS: Oxyhemoglobin 96.2 % (94.0-97.0); Sodium 128 mmol/L (135-148)
[2016-12-27 07:13] LABS: Mechanical Tidal Volume 500 ml; Mode SIMV.PSV; Modified Allen's Test POSITIVE; Pressure Support 10 cmH2O; Vent YES
--- NOTE | 2016-12-27 07:39 | RAD ---
CHEST 1 VIEW: HISTORY: Syncope. COMPARISON: 12/25/16, earlier on the same date. FINDINGS: Cardiac silhouette is magnified by projection. Pulmonary vasculature is unremarkable. Mediastinum i s midline with aortic calcification. The tip of an endotracheal catheter overlies the thoracic inlet . Lungs are hyperinflated. No lobar consolidation or pneumothorax are apparent. [employer] forces warrant officer le ads overlie the chest. IMPRESSION: Endotracheal catheter is in good radiographic position. Other findings are stable. POS: [facility]
--- NOTE | 2016-12-27 08:56 | PRG ---
DATE OF SERVICE: 12/27/2016 SUBJECTIVE: This morning he is intubated on the vent, sedated with Diprivan. PHYSICAL EXAMINATION: VITAL SIGNS: His pulse is 85, blood pressure 130/77, sats 100%, respirations are about 10. HEENT: He opens his eyes. CHEST: Chest reveals decreased breath sounds without any wheezing. CARDIAC: Normal S1, S2. ABDOMEN: Soft, no masses. X-ray shows no acute infiltrates. Blood gases show mixed metabolic respiratory acidosis. White count 21,000, H&H is 14 and 43, platelet count 193, PO2 114, PCO2 27.23 on rate of 14, 40%. So dium is 128, BUN and creatinine are otherwise unremarkable. IMPRESSION: 1. Respiratory failure. 2. Chronic obstructive pulmonary disease. 3. Diabetes. 4. Renal failure. 5. Encephalopathy. PLAN: She is not weanable at this stage. Start nutrition. Continue antibiotics, supportive care. I will follow. One-half hour critical care time.
--- NOTE | 2016-12-27 09:10 | RAD ---
CHEST 1 VIEW: HISTORY: A 76-year-old male with respiratory insufficiency. FINDINGS: NG tube and endotracheal tubes appear to be in place. NG tube has been placed since the prior stud y. Endotracheal tube is unchanged. No evidence for confluent pneumonia, overt edema, or pleural eff usion. No pneumothorax. IMPRESSION: No acute intrathoracic disease. Life support tues in place. POS: [facility]
--- NOTE | 2016-12-27 09:14 | PRG ---
DATE OF SERVICE: 12/27/2016 SUBJECTIVE: Mr. Joyner was seen for his chronic renal failure. He was essentially admitted for acute respiratory failure, COPD exacerbation. He is currently still intubated. No acute changes in the la st 12 hours. PHYSICAL EXAMINATION: VITAL SIGNS: Blood pressure is 109/64, heart rate 88, respiratory rate 23, pulse ox 99%. GENERAL: Patient is sedated, intubated on ventilator support. SKIN: Adequate turgor. HEENT: Pinkish conjunctivae. Anicteric sclerae. NECK: No neck mass, no carotid bruits. No JVD. CHEST: No deformities. LUNGS: Decreased breath sounds. No wheezing, no crackles. HEART: Normal sinus rhythm. No murmur, no gallops, no rubs. ABDOMEN: Globular, soft, nontender. No masses. EXTREMITIES: No edema, no deformities. MEDICATIONS: 12/27/2016 - Reviewed. LABORATORIES: 12/27/2016 - White count 21.3, hemoglobin 14, hematocrit 43.8. Sodium 128, potassium 4.8, chloride 99, carbon dioxide 21, BUN 52, creatinine 2.03, glucose 208, calcium 8.4. Chest x-ray was clear. ASSESSMENT AND PLAN: 1. Chronic renal failure, relatively stable renal function. Creatinine 2.03 is slightly improved fr om yesterday were it was at 2.19, it is nearing baseline. There is no indication for any dialytic in tervention. Continue gentle volume repletion with this patient. 2. Acute respiratory failure secondary to chronic obstructive pulmonary disease exacerbation. Awa nt currently on steroids and empiric IV antibiotics. Continue current management. Pulmonary following. Overall, prognosis remains guarded. The patient's renal function continues to remain stable.
[2016-12-27] MEDS: Calcitriol 0.25 MCG CAP PO SCH (09:45)
[2016-12-27] MEDS: Gabapentin 100 MG CAP PO SCH ×3 (09:45→21:42)
[2016-12-27] MEDS: Lisinopril 2.5 MG TAB PO SCH (09:45)
[2016-12-27] MEDS: Allopurinol 100 MG TAB PO SCH (09:46)
[2016-12-27] MEDS: guaiFENesin ER 600 MG TAB PO SCH ×2 (09:46→21:42)
[2016-12-27] MEDS: CEFEPIME IVPB SCH ×2 (10:13→21:41)
[2016-12-27] MEDS: STERILE WATER IVPB SCH ×2 (10:13→21:41)
--- NOTE | 2016-12-27 10:39 | PDOC.PN ---
- Subjective Encounter Start Date: 12/27/16 Encounter Start Time: 10:00 today sedation reduced, pt is stable on vent, family bedside Patient seen and examined. No overnight events - Objective Resuscitation Status: Resuscitation Status FULL:Full Resuscitation MAR Reviewed: Yes Vital Signs & Weight: Vital Signs (12 hours) Pulse Resp BP Pulse Ox 12/27/16 10:27 95 139/69 12/27/16 10:25 95 22 H 99 12/27/16 09:45 96 114/61 12/27/16 06:52 86 109/64 12/27/16 06:48 88 23 H 99 12/27/16 06:00 19 12/27/16 04:00 28 H 12/27/16 03:09 83 99/54 L 12/27/16 03:08 100 12/27/16 02:00 14 12/27/16 01:03 82 12/27/16 01:02 100 12/27/16 00:00 16 Weight Weight 237 lb 14.06 oz Most Recent Monitor Data Heart Rate from ECG 96 NIBP 139/69 NIBP BP-Mean 76 Respiration from ECG 18 SpO2 100 I&O: 12/26/16 12/27/16 12/28/16 06:59 06:59 06:59 Intake Total 494 2656 Output Total 915 1300 Balance -421 1356 Result Diagrams: 12/27/16 04:02 12/27/16 04:02 Additional Labs: Accuchecks 12/27/16 12/27/16 12/26/16 04:53 00:43 19:55 POC Glucose 183 H 171 H 168 H 12/26/16 12/26/16 15:58 10:54 POC Glucose 206 H 247 H Radiology Reviewed by me: Yes (chest xray) EKG Reviewed by me: Yes (nsr) Phys Exam - Physical Examination Constitutional: NAD HEENT: PERRLA, moist MMs, sclera anicteric Neck: no JVD, supple Respiratory: no wheezing, no rales, no rhonchi Cardiovascular: RRR, no significant murmur, no rub Gastrointestinal: soft, no distention, positive bowel sounds Musculoskeletal: no edema, pulses present scd+ Lymphatic: no nodes Skin: no rash, normal turgor Dx/Plan (1) Acute metabolic encephalopathy Code(s): G93.41 - METABOLIC ENCEPHALOPATHY Status: Acute Comment: CO2 narcosis (2) Acute on chronic respiratory failure with hypoxia and hypercapnia Code(s): J96.21 - ACUTE AND CHRONIC RESPIRATORY FAILURE WITH HYPOXIA; J96.22 - ACUTE AND CHRONIC RESPIRATORY FAILURE WITH HYPERCAPNIA Status: Acute Comment : nasally intubated (3) Acute worsening of stage 3 chronic kidney disease Code(s): N18.3 - CHRONIC KIDNEY DISEASE, STAGE 3 (MODERATE) Status: Acute (4) COPD exacerbation Code(s): J44.1 - CHRONIC OBSTRUCTIVE PULMONARY DISEASE W (ACUTE) EXACERBATION Status: Acute (5) Hyponatremia Code(s): E87.1 - HYPO-OSMOLALITY AND HYPONATREMIA Status: Acute (6) Chronic anticoagulation Code(s): Z79.01 - REAGENT TENDER (CURRENT) USE OF ANTICOAGULANTS Status: Chronic (7) Chronic diastolic (congestive) heart failure Code(s): I50.32 - CHRONIC DIASTOLIC (CONGESTIVE) HEART FAILURE Status: Chronic (8) Diabetes mellitus, insulin dependent (IDDM), controlled Code(s): E11.9 - TYPE 2 DIABETES MELLITUS WITHOUT COMPLICATIONS; Z79.4 - CORRECTION (CURRENT) USE OF INSULIN Status: Chronic (9) Diabetic neuropathy Code(s): E11.40 - TYPE 2 DIABETES MELLITUS WITH DIABETIC NEUROPATHY, UNSP Status: Chronic (10) Dyslipidemia Code(s): E78.5 - HYPERLIPIDEMIA, UNSPECIFIED Status: Chronic (11) GERD (gastroesophageal reflux disease) Code(s): K21.9 - GASTRO-ESOPHAGEAL REFLUX DISEASE WITHOUT ESOPHAGITIS Status: Chronic (12) Gout Code(s): M10.9 - GOUT, UNSPECIFIED Status: Chronic (13) HTN (hypertension) Code(s): I10 - ESSENTIAL (PRIMARY) HYPERTENSION Status: Chronic Qualifiers: Hypertension type: essential hypertension Qualified Code(s): I10 - Essential (primary) hypertension (14) Obesity (BMI 30.0-34.9) Code(s): E66.9 - OBESITY, UNSPECIFIED Status: Chronic (15) Paroxysmal atrial fibrillation Code(s): I48.0 - PAROXYSMAL ATRIAL FIBRILLATION Status: Chronic - Plan cont current plan of care, plan discussed w/ family, continue antibiotics, respiratory therapy * discussed with family * continue IV cefepime * medication reviewed as below * symptomatic treatment * vent management per pulmonary * will monitor. Review of Systems - Review of Systems Other: unable to review as pt is intubated and sedated - Medications/Allergies Allergies/Adverse Reactions: Allergies Allergy/AdvReac Type Severity Reaction Status Date / Time exenatide [From Byetta] Allergy Severe Verified 11/17/12 04:50 sitagliptin phosphate Allergy Severe Verified 11/17/12 04:50 [From Januvia] clindamycin Allergy Intermediate Swollen Verified 11/17/12 04:48 Lips erythromycin base Allergy Intermediate Swollen Verified 11/17/12 04:48 [Erythromycin Base] Lips hydrocodone Allergy Intermediate Verified 11/17/12 04:49 Sulfa (Sulfonamide Allergy Intermediate Swollen Verified 11/17/12 04:49 Antibiotics) Lips phenol Allergy Verified 11/17/12 04:50 propoxyphene napsylate Allergy Verified 11/17/12 04:50 [From Darvocet-N 100] Medications: Current Medications Acetaminophen (Tylenol) 650 mg PO Q4H PRN PRN Reason: Headache/Fever or Pain Al Hydroxide/Mg Hydroxide (Maalox) 30 ml PO Q6H PRN PRN Reason: Heartburn or Indigestion Albuterol/Ipratropium (Duoneb) 3 ml NEB [id number] [facility] Last Admin: 12/27/16 10:25 Dose: 3 ml Allopurinol (Zyloprim) 50 mg PO DAILY [facility] Last Admin: 12/27/16 09:46 Dose: 50 mg Artificial Tears (Tears Naturale) 0 drop EA EYE PRN PRN PRN Reason: Dry Eyes Aspirin (Aspirin Chewable) 81 mg PO DAILY [facility] Last Admin: 12/27/16 09:45 Dose: 81 mg Benzonatate (Tessalon) 100 mg PO Q4H PRN PRN Reason: Cough Calcitriol (Rocaltrol) 0.25 mcg PO DAILY [facility] Last Admin: 12/27/16 09:45 Dose: 0.25 mcg Clonidine (Catapres) 0.1 mg PO Q4H PRN PRN Reason: Systolic BP > 180 Dextrose/Water (Dextrose 50%) 25 gm SLOW IVP PRN PRN PRN Reason: Hypoglycemia Gabapentin (Neurontin) 100 mg PO TID [facility] Last Admin: 12/27/16 09:45 Dose: 100 mg Glucagon (Glucagon) 1 mg IM PRN PRN PRN Reason: Hypoglycemia Guaifenesin (Mucinex) 1,200 mg PO Q12HR [facility] Last Admin: 12/27/16 09:46 Dose: 1,200 mg Hydralazine HCl (Apresoline) 10 mg SLOW IVP Q4H PRN PRN Reason: Systolic BP > 180 Dextrose/Water (D5w) 1,000 mls @ 0 mls/hr IV .Q0M PRN; As Directed PRN Reason: Hypoglycemia Insulin Detemir 50 units/ (Miscellaneous Medication) 0.5 mls @ 0 mls/hr SC HS [facility] Last Admin: 12/26/16 22:13 Dose: 0.5 mls Cefepime HCl 1 gm/ Sterile (Water) 10 mls @ 120 mls/hr IVPB Q12HR [facility] Last Admin: 12/27/16 10:13 Dose: 10 mls Fentanyl (Fentanyl Cadd) 250 mls @ 0 mls/hr IVPB INF [facility]; Titrate PRN Reason: Protocol Stop: 01/24/17 20:31 Last Admin: 12/27/16 09:58 Dose: 250 mls Fentanyl Citrate (Fentanyl Bolus) 250 mls @ 0 mls/hr IVPB PRN PRN; As Directed PRN Reason: VENTILATION SEDATION PROTOCOL Stop: 01/24/17 20:31 Sodium Chloride (Normal Saline 0.9%) 1,000 mls @ 100 mls/hr IV .Q10H [facility] Last Admin: 12/27/16 03:00 Dose: 1,000 mls Insulin Human Lispro (Humalog) 0 units SC .AGGRESSIVE SLIDING PRN PRN Reason: Aggressive Correctional Scale Last Admin: 12/27/16 05:13 Dose: 3 unit Insulin Human Lispro (Humalog) 0 units SC .BEDTIME SLIDING SC PRN PRN Reason: Bedtime Correctional Scale Last Admin: 12/24/16 22:30 Dose: 3 unit Lisinopril (Zestril) 2.5 mg PO DAILY [facility] Last Admin: 12/27/16 09:45 Dose: 2.5 mg Loperamide HCl (Imodium) 2 mg PO PRN PRN PRN Reason: Diarrhea/Loose Stools Loratadine (Claritin) 10 mg PO DAILYPRN PRN PRN Reason: Sinus Symptoms Lorazepam (Ativan) 2 mg SLOW IVP Q2H PRN PRN Reason: Anxiety to achieve Florian 2-3 Stop: 01/24/17 20:31 Magnesium Hydroxide (Milk Of Magnesium) 30 ml PO DAILYPRN PRN PRN Reason: Constipation Methylprednisolone Sodium Succinate (Solu-Medrol) 40 mg IVP Q8HR [facility] Last Admin: 12/27/16 05:47 Dose: 40 mg Mineral Oil/White Petrolatum (Eucerin Cream) 0 gm TOP BIDPRN PRN PRN Reason: Dry Skin Mometasone Furoate/Formoterol Fumar (Dulera 200 Mcg/5 Mcg Inhaler) 2 puff INH BID-RT [facility] Last Admin: 12/27/16 06:51 Dose: 2 puff Morphine Sulfate (Duramorph) 2 mg IVP Q2H PRN PRN Reason: TO ACHIEVE COOPER SCORE 2-3 Stop: 01/24/17 20:31 Nebivolol (Bystolic) 5 mg PO HS [facility] Last Admin: 12/26/16 22:13 Dose: 5 mg Ondansetron HCl (Zofran Odt) 4 mg PO Q6H PRN PRN Reason: Nausea/Vomiting Ondansetron HCl (Zofran) 4 mg IVP Q6H PRN PRN Reason: Nausea/Vomiting Pantoprazole Sodium (Protonix) 40 mg PO DAILY [facility] Last Admin: 12/27/16 10:06 Dose: Not Given Propofol (Diprivan) 1,000 mg IV INF PRN; Protocol PRN Reason: TO ACHIEVE FLORIAN SCORE 2-3 Stop: 01/24/17 20:31 Last Admin: 12/27/16 05:47 Dose: 1,000 mg Senna (Senokot) 2 tab PO HSPRN PRN PRN Reason: Constipation Sodium Chloride ([place] Nasal [place] 0.65%) 0 ml EA NARE QIDPRN PRN PRN Reason: Nasal Congestion Last Admin: 12/24/16 20:33 Dose: 1 each Sodium Chloride (Flush - Normal Saline) 10 ml IVF Q12HR [facility] Last Admin: 12/27/16 10:06 Dose: 10 ml Sodium Chloride (Flush - Normal Saline) 10 ml IVF PRN PRN PRN Reason: Saline Flush Last Admin: 12/26/16 14:48 Dose: 10 ml
[2016-12-27] MEDS ORDERED: Sterile Water 10 ML ONE (15:05)
[2016-12-27] MEDS: Nebivolol HCl 5 MG TAB PO SCH (21:41)
[2016-12-27] MEDS: Insulin Detemir 100 UNITS/ML 50 UNITS in Pre-Filled Syringe SC SCH (21:44)
[2016-12-28] MEDS: HumaLOG 300 UNITS/3 ML VIAL SC PRN ×4 (00:09→16:26)
[2016-12-28] MEDS: Sodium Chloride 0.9% 1,000 ML IV SCH ×2 (00:10→11:00)
[2016-12-28 04:38] LABS: Prothrombin Time 27.4 SEC (12.0-14.7)
[2016-12-28 04:43] LABS: #Lymphocytes 0.4 thou/uL (1.20-3.40); #Monocytes 1.1 thou/uL (0.11-0.59); #Neutrophils 17.1 thou/uL (1.40-6.50); %Eosinophils 0.2 % (0.0-10.0); %Monocytes 5.8 % (0.0-10.0); Hematocrit 42.6 % (42.0-52.0); Mean Platelet Volume 8.1 fL (7.4-10.4); Red Blood Cell (RBC) Count 4.47 mill/uL (4.70-6.10); White Blood Cell (WBC) Count 18.6 thou/uL (4.8-10.8)
[2016-12-28 04:48] LABS: Anion Gap 11 mmol/L (10-20); BUN (Urea Nitrogen) 64 mg/dL (8.4-25.7); Calc. Creatinine Clearance 45 mL/min (70-130); Calcium 8.3 mg/dL (7.8-10.44); Carbon Dioxide 21 mmol/L (23-31); Chloride 103 mmol/L (98-107); Estimated GFR-MDRD 31
[2016-12-28] MEDS: Mometasone/Formoterol 120 PUFF INHALER INH SCH ×2 (07:32→18:37)
--- NOTE | 2016-12-28 07:35 | EKG ---
Test Reason : STAT Blood Pressure : / mmHG Vent. Rate : 134 BPM Atrial Rate : 134 BPM P-R Int : 000 ms QRS Dur : 090 ms QT Int : 296 ms P-R-T Axes : 075 -71 074 degrees QTc Int : 442 ms Sinus tachycardia with 1st degree A-V block Left axis deviation Possible Inferior infarct , age undetermined Abnormal ECG When compared with ECG of 24-DEC-2016 00:31, (Unconfirmed) Sinus rhythm has replaced Atrial fibrillation Borderline criteria for Inferior infarct are now Present Confirmed by CHRISTIAN ESPINO, SDipesh ([id number]) on 12/28/2016 7:35:06 AM Referred By: RADHA Confirmed By:DR. Néstor GONZALES MD
--- NOTE | 2016-12-28 08:13 | PRG ---
DATE OF SERVICE: 12/28/2016 SUBJECTIVE: The patient is seen and examined at bedside. He is in ICU bed 8. He is intubated and s edated. He is on FiO2 of 40% at this point. PHYSICAL EXAMINATION: VITAL SIGNS: Blood pressure is 109/54, pulse is 94, pulse ox is 98%, respiratory rate is 10. HEENT: His pupils are midline, 3 mm, symmetric with some response to light. Conjunctivae somewhat r eddish. He is nasally intubated. LUNGS: Bilateral rales present at both bases. No wheezing. HEART: S1, S2 normal, no S3, no S4, somewhat distant. No murmur. ABDOMEN: Somewhat distended. Bowel sounds are present. No organomegaly. EXTREMITIES: 1+ peripheral edema in the upper extremities and 1-2+ peripheral edema in the lower ext remities. NEUROLOGIC: Postponed since he is under the influence of sedation. LABORATORY: White count of 18.6, hemoglobin 13.5, hematocrit 42.6, platelet count is 199,000, neutro phils 91.9, INR 2.4, PTT of 27.4, sodium 130, potassium 5.1, chloride 103, CO2 21, BUN 64, creatinine 1.06, glycemics ranging from 183 to 279, calcium 8.3. MICROBIOLOGY: None. X-ray of the chest pending. IMPRESSION: 1. Acute chronic respiratory failure with hypoxia and hypercapnia. The patient is intubated. Pulmo nologist is planning to intubate him orally. He is on IV cefepime, IV steroids and nebulizers. We w ill continue all those treatments. 2. Acute metabolic encephalopathy on sedation now. 3. Acute worsening of stage 3 chronic kidney disease with creatinine at 2.06 today. The patient is receiving IV fluids at 100 mL per hour. Nephrology is managing the volume and fluids. He is positiv e for 2500 mL for the last 24 hours. 4. Hyponatremia with hyposmolarity. 5. Chronic anticoagulation with INR of 2.4. 6. Chronic diastolic congestive heart failure. 7. Diabetes mellitus. His glycemia is ranging above 200s almost all the time, we will add to his 50 units of Levemir 10 units this morning and continue the sliding scale with aggressive protocol every 4 hours. 8. Diabetic neuropathy, chronic. 9. Dyslipidemia, chronic. 10. History of gout, chronic. 11. Hypertension, stable. 12. Obesity, chronic. 13. History of paroxysmal atrial fibrillation. PLAN: Continue ventilator management per Pulmonary. Continue IV cefepime. Continue IV steroids and DuoNebs, add 10 units of Levemir to his current protocol which is 50 units of Levemir at bedtime plu s sliding scale with aggressive protocol every 4 hours. We will continue his Protonix for PUD prophy laxis and will continue his supportive care in the Intensive Care Unit.
--- NOTE | 2016-12-28 08:21 | PRG ---
DATE OF SERVICE: 12/28/2016 This morning he is off his fentanyl. He has received 80 mcg over the night. He is awake, responsive . PHYSICAL EXAMINATION: VITAL SIGNS: Pulse 107, blood pressure is 105/50, sats are 90%, respirations 13. CHEST: Chest reveals decreased breath sounds without any wheezing. CARDIAC: Normal S1, S2. ABDOMEN: Soft, no masses. His x-ray still looks normal. His labs shows slightly increasing azotemia. BUN 64, creatinine 2.6. White count 18,000. H&H 13 an d 42. Sodium 130. IMPRESSION: 1. Renal failure, chronic. 2. Respiratory failure. 3. End-stage chronic obstructive pulmonary disease. 4. Diabetes. PLAN: Will try and change his nasal ET tube to oral. Continue slow weaning. Supportive care and nu trition. One-half hour critical care time.
[2016-12-28] MEDS: Lisinopril 2.5 MG TAB PO SCH (09:14)
[2016-12-28] MEDS: CEFEPIME IVPB SCH ×2 (09:14→20:21)
[2016-12-28] MEDS: STERILE WATER IVPB SCH ×2 (09:14→20:21)
[2016-12-28] MEDS: Calcitriol 0.25 MCG CAP PO SCH (09:14)
[2016-12-28] MEDS: Gabapentin 100 MG CAP PO SCH ×3 (09:15→20:21)
[2016-12-28] MEDS: Allopurinol 100 MG TAB PO SCH (09:15)
[2016-12-28] MEDS: guaiFENesin ER 600 MG TAB PO SCH ×2 (09:15→20:21)
[2016-12-28] MEDS: Insulin Detemir 100 UNITS/ML 10 UNITS in Pre-Filled Syringe 1 EACH SC SCH (09:16)
--- NOTE | 2016-12-28 09:20 | RAD ---
PORTABLE SEMIUPRIGHT FRONTAL CHEST RADIOGRAPH: Date: 12-28-16 Comparison: 12-27-16 History: Ventilated patient. FINDINGS: Portable technique limits detailed assessment. The region of the thoracic inlet is limited. There may be an endotracheal tube terminating at the lev el of the clavicles, difficult to discretely visualize. Nasogastric tube extends into upper abdomen. Mild increased linear interstitial densities noted bilaterally, stable. Stable prominence of the card iac silhouette noted. No pneumothorax, pleural fluid, lobar consolidation, or alveolar edema. IMPRESSION: Lines and tubes as above. POS: [facility]
--- NOTE | 2016-12-28 10:36 | PRG ---
DATE OF SERVICE: 12/28/2016 SUBJECTIVE: Mr. Joyner is a 76-year-old white male being followed up for his chronic renal failure. He was admitted for COPD exacerbation and went into acute respiratory failure and intubated. The douglas n is to wean him off from the ventilator today. PHYSICAL EXAMINATION: VITAL SIGNS: Blood pressure is 135/71, heart rate 93, respiratory rate 23, pulse ox 99%. GENERAL: Patient is arousable, intubated on ventilator support. SKIN: Adequate turgor. HEENT: Pinkish conjunctivae. Anicteric sclerae. NECK: No neck mass, no carotid bruits, no JVD. CHEST: No deformities. LUNGS: Decreased breath sounds. HEART: Normal sinus rhythm. No murmur, no gallops, no rubs. ABDOMEN: Globular, soft, nontender, no masses. EXTREMITIES: No edema, no deformities. MEDICATIONS: 12/28/2016 - Reviewed. LABORATORIES: 12/28/2016 - White count 18.6, hemoglobin 13.5, sodium 130, potassium 5.1, chloride 10 3, carbon dioxide 21, BUN 64, creatinine 2.05, glucose 279, calcium 8.3. ASSESSMENT AND PLAN: 1. Acute kidney injury/chronic renal failure, stabilizing renal function. Creatinine is noted at 2. 06, which is about baseline. Continue current management. No indication for any dialytic interventi on. I agree with gentle volume repletion. 2. Acute respiratory failure. Continue supportive care, on empiric IV antibiotics. The plan is to consider weaning him off from the ventilator. No indication for any dialytic intervention. I agree with current management.
[2016-12-28] MEDS ORDERED: DC Sedation Protocol FS ONE (10:47)
[2016-12-28] MEDS: Nebivolol HCl 5 MG TAB PO SCH (20:35)
[2016-12-28] MEDS: Insulin Detemir 100 UNITS/ML 50 UNITS in Pre-Filled Syringe SC SCH (21:48)
[2016-12-29 04:57] LABS: Prothrombin Time 22.3 SEC (12.0-14.7)
[2016-12-29 05:15] LABS: Anion Gap 11 mmol/L (10-20); BUN (Urea Nitrogen) 66 mg/dL (8.4-25.7); Calc. Creatinine Clearance 50 mL/min (70-130); Calcium 8.8 mg/dL (7.8-10.44); Carbon Dioxide 23 mmol/L (23-31); Chloride 110 mmol/L (98-107); Estimated GFR-MDRD 35
[2016-12-29 05:16] LABS: Band 1 % (5-11); Hematocrit 45.2 % (42.0-52.0); Mean Platelet Volume 7.6 fL (7.4-10.4); Neutrophil 88 % (42-75); Red Blood Cell (RBC) Count 4.81 mill/uL (4.70-6.10); White Blood Cell (WBC) Count 22.6 thou/uL (4.8-10.8)
[2016-12-29] MEDS: Sodium Chloride 0.9% 1,000 ML IV SCH ×2 (05:28→13:39)
[2016-12-29] MEDS ORDERED: Laxative Of Choice PO PRN (08:02)
[2016-12-29] MEDS ORDERED: Bisacodyl 10 MG SUPP PR PRN (08:02)
[2016-12-29] MEDS: Mometasone/Formoterol 120 PUFF INHALER INH SCH ×2 (08:10→18:44)
--- NOTE | 2016-12-29 08:32 | PRG ---
DATE OF SERVICE: 12/29/2016 He was extubated yesterday. He had bleeding from his nostril, but otherwise he is doing better, stil l very weak, coughing. PHYSICAL EXAMINATION: VITAL SIGNS: Sats 94 on 3 liters, blood pressure 159/83, respirations 18. His I's and O's are 3680 in, 1196 out. CHEST: Chest revealed decreased breath sounds with minimal wheezing. CARDIAC: Normal S1-S2. ABDOMEN: Soft. No masses. LABORATORY: White count 13,000, H&H 14 and 43, platelet count normal. BUN and creatinine are 66 and 1.8, sodium 139. IMPRESSION: 1. Increasing azotemia. 2. Chronic obstructive pulmonary disease, end-stage. 3. Chronic pain. PLAN: Continue neb treatments, supportive care. Steroids. All cultures are so far negative. Maritza carrera is to see him today. Dulcolax suppositories given. Continue steroids, neb treatments. I will follow. One-half hour of critical care time.
[2016-12-29] MEDS: STERILE WATER IVPB SCH ×2 (09:08→20:57)
[2016-12-29] MEDS: Insulin Detemir 100 UNITS/ML 10 UNITS in Pre-Filled Syringe 1 EACH SC SCH (09:08)
[2016-12-29] MEDS: CEFEPIME IVPB SCH ×2 (09:08→20:57)
[2016-12-29] MEDS: HumaLOG 300 UNITS/3 ML VIAL SC PRN (09:11)
--- NOTE | 2016-12-29 09:23 | RAD ---
ONE VIEW CHEST: History: Respiratory distress. Comparison: 12-28-16 FINDINGS: Interval removal of endotracheal tube. Chronic change in the lung parenchyma. No pneumothorax. Lungs are hyperinflated. IMPRESSION: Interval removal of endotracheal tube. POS: [facility]
--- NOTE | 2016-12-29 09:34 | PRG ---
DATE OF SERVICE: 12/29/2016 RENAL MEDICINE SUBJECTIVE: Mr. Joyner is a 76-year-old white male being followed by the renal service for his chronic renal failure. Please note patient came in with shortness of breath. He went into acute respirator y failure secondary to COPD exacerbation. He was subsequently intubated. He is currently extubated and off ventilator. This morning, he is feeling better. He is somewhat lethargic. PHYSICAL EXAMINATION: VITAL SIGNS: Blood pressure 159/83, heart rate 122, respiratory rate 30, and pulse ox is 84%. GENERAL: Noted to be awake, sitting comfortable, not in overt distress. SKIN: Adequate turgor. HEENT: Pinkish conjunctivae and anicteric sclerae. NECK: No neck mass, no carotid bruits, no JVD. CHEST: No deformities. LUNGS: Decreased breath sounds. HEART: Tachycardic. No murmur, no gallops, no rubs. ABDOMEN: Globular, soft, nontender. EXTREMITIES: No edema, no deformities. MEDICATIONS: Medications of 12/29/2016 was reviewed. LABORATORY DATA: Laboratories of 12/29/2016; white count 22.6, hemoglobin 14.2. Sodium 139, potassi um 4.5, chloride 110, carbon dioxide 23, BUN 66, creatinine 1.87. GFR 35 mL per minute, glucose 190, calcium 8.8. ASSESSMENT AND PLAN: 1. Acute kidney injury on top of his chronic renal failure, slowly improving creatinine. Most recen t creatinine is now 1.87. Previously, creatinine peaked at value of 2.19. No indication for any noble lytic intervention. Continue gentle volume repletion. Currently on normal saline at 75 mL per hour. 2. Acute respiratory failure - much improved. Patient extubated, currently on empiric steroids and IV antibiotics. Pulmonary is following.
[2016-12-29] MEDS: Calcitriol 0.25 MCG CAP PO SCH (10:29)
[2016-12-29] MEDS: Allopurinol 100 MG TAB PO SCH (10:29)
[2016-12-29] MEDS: Gabapentin 100 MG CAP PO SCH ×3 (10:30→20:42)
[2016-12-29] MEDS: guaiFENesin ER 600 MG TAB PO SCH ×2 (10:30→20:57)
--- NOTE | 2016-12-29 12:08 | PDOC.PN ---
- Subjective Encounter Start Date: 12/29/16 Encounter Start Time: 08:10 -: old records requested/rev pt was extubated yesterday, no BM for 4 days, has abdomen distension, - Objective Resuscitation Status: Resuscitation Status FULL:Full Resuscitation MAR Reviewed: Yes Vital Signs & Weight: Vital Signs (12 hours) Temp Pulse Resp Pulse Ox 12/29/16 12:00 97.7 F 12/29/16 11:56 95 16 95 12/29/16 08:00 97.7 F 106 H 20 98 12/29/16 05:44 98 20 94 L 12/29/16 04:00 98.8 F 12/29/16 03:50 100 18 100 12/29/16 00:19 95 16 99 Weight Admit Weight 242 lb Weight 244 lb 7.882 oz Most Recent Monitor Data Heart Rate from ECG 85 NIBP 167/80 NIBP BP-Mean 97 Respiration from ECG 14 SpO2 99 I&O: 12/28/16 12/29/16 12/30/16 06:59 06:59 06:59 Intake Total 3680.3 1901 175 Output Total 1196 2255 555 Balance 2484.3 -354 -380 Result Diagrams: 12/29/16 04:33 12/29/16 04:33 Additional Labs: Accuchecks 12/29/16 12/29/16 12/29/16 09:11 04:32 00:10 POC Glucose 188 H 161 H 149 H 12/28/16 12/28/16 12/28/16 21:42 20:24 16:16 POC Glucose 165 H 153 H 227 H 12/28/16 12:41 POC Glucose 274 H Radiology Reviewed by me: Yes EKG Reviewed by me: Yes (nsr) Phys Exam - Physical Examination Constitutional: NAD HEENT: PERRLA, moist MMs, sclera anicteric Neck: no JVD, supple Respiratory: no wheezing, no rales, no rhonchi Cardiovascular: RRR, no significant murmur, no rub Gastrointestinal: soft, non-tender, positive bowel sounds mild distension Musculoskeletal: pulses present, edema present Neurological: non-focal, normal sensation Psychiatric: normal affect Skin: no rash, normal turgor Dx/Plan (1) Acute metabolic encephalopathy Code(s): G93.41 - METABOLIC ENCEPHALOPATHY Status: Acute Comment: CO2 narcosis (2) Acute on chronic respiratory failure with hypoxia and hypercapnia Code(s): J96.21 - ACUTE AND CHRONIC RESPIRATORY FAILURE WITH HYPOXIA; J96.22 - ACUTE AND CHRONIC RESPIRATORY FAILURE WITH HYPERCAPNIA Status: Acute Comment : nasally intubated (3) Acute worsening of stage 3 chronic kidney disease Code(s): N18.3 - CHRONIC KIDNEY DISEASE, STAGE 3 (MODERATE) Status: Acute (4) COPD exacerbation Code(s): J44.1 - CHRONIC OBSTRUCTIVE PULMONARY DISEASE W (ACUTE) EXACERBATION Status: Acute (5) Hyponatremia Code(s): E87.1 - HYPO-OSMOLALITY AND HYPONATREMIA Status: Acute (6) Chronic anticoagulation Code(s): Z79.01 - [employer] (CURRENT) USE OF ANTICOAGULANTS Status: Chronic (7) Chronic diastolic (congestive) heart failure Code(s): I50.32 - CHRONIC DIASTOLIC (CONGESTIVE) HEART FAILURE Status: Chronic (8) Diabetes mellitus, insulin dependent (IDDM), controlled Code(s): E11.9 - TYPE 2 DIABETES MELLITUS WITHOUT COMPLICATIONS; Z79.4 - GROUP HOME (CURRENT) USE OF INSULIN Status: Chronic (9) Diabetic neuropathy Code(s): E11.40 - TYPE 2 DIABETES MELLITUS WITH DIABETIC NEUROPATHY, UNSP Status: Chronic (10) Dyslipidemia Code(s): E78.5 - HYPERLIPIDEMIA, UNSPECIFIED Status: Chronic (11) GERD (gastroesophageal reflux disease) Code(s): K21.9 - GASTRO-ESOPHAGEAL REFLUX DISEASE WITHOUT ESOPHAGITIS Status: Chronic (12) Gout Code(s): M10.9 - GOUT, UNSPECIFIED Status: Chronic (13) HTN (hypertension) Code(s): I10 - ESSENTIAL (PRIMARY) HYPERTENSION Status: Chronic Qualifiers: Hypertension type: essential hypertension Qualified Code(s): I10 - Essential (primary) hypertension (14) Obesity (BMI 30.0-34.9) Code(s): E66.9 - OBESITY, UNSPECIFIED Status: Chronic (15) Paroxysmal atrial fibrillation Code(s): I48.0 - PAROXYSMAL ATRIAL FIBRILLATION Status: Chronic - Plan cont current plan of care, plan discussed w/ family, continue antibiotics, PT/OT , speech therapy, respiratory therapy * continue current treatment plan * speech therapy evaluation for diet * discussed with family bedside * medication reviewed as below * symptomatic treatment. * continue cefepime, solumderol * will need aggressive PT and eventually placement Review of Systems - Review of Systems Other: not reliable due to pt is not cooperative today - Medications/Allergies Allergies/Adverse Reactions: Allergies Allergy/AdvReac Type Severity Reaction Status Date / Time exenatide [From Byetta] Allergy Severe Verified 11/17/12 04:50 sitagliptin phosphate Allergy Severe Verified 11/17/12 04:50 [From Januvia] clindamycin Allergy Intermediate Swollen Verified 11/17/12 04:48 Lips erythromycin base Allergy Intermediate Swollen Verified 11/17/12 04:48 [Erythromycin Base] Lips hydrocodone Allergy Intermediate Verified 11/17/12 04:49 Sulfa (Sulfonamide Allergy Intermediate Swollen Verified 11/17/12 04:49 Antibiotics) Lips phenol Allergy Verified 11/17/12 04:50 propoxyphene napsylate Allergy Verified 11/17/12 04:50 [From Darvocet-N 100] Medications: Current Medications Acetaminophen (Tylenol) 650 mg PO Q4H PRN PRN Reason: Headache/Fever or Pain Al Hydroxide/Mg Hydroxide (Maalox) 30 ml PO Q6H PRN PRN Reason: Heartburn or Indigestion Albuterol/Ipratropium (Duoneb) 3 ml NEB [id number] [facility] Last Admin: 12/29/16 11:56 Dose: 3 ml Allopurinol (Zyloprim) 50 mg PO DAILY [facility] Last Admin: 12/29/16 10:29 Dose: 50 mg Artificial Tears (Tears Naturale) 0 drop EA EYE PRN PRN PRN Reason: Dry Eyes Benzonatate (Tessalon) 100 mg PO Q4H PRN PRN Reason: Cough Bisacodyl (Dulcolax) 10 mg NM DAILYPRN PRN PRN Reason: Constipation Calcitriol (Rocaltrol) 0.25 mcg PO DAILY [facility] Last Admin: 12/29/16 10:29 Dose: 0.25 mcg Clonidine (Catapres) 0.1 mg PO Q4H PRN PRN Reason: Systolic BP > 180 Dextrose/Water (Dextrose 50%) 25 gm SLOW IVP PRN PRN PRN Reason: Hypoglycemia Gabapentin (Neurontin) 100 mg PO TID [facility] Last Admin: 12/29/16 10:30 Dose: 100 mg Glucagon (Glucagon) 1 mg IM PRN PRN PRN Reason: Hypoglycemia Guaifenesin (Mucinex) 1,200 mg PO Q12HR [facility] Last Admin: 12/29/16 10:30 Dose: 1,200 mg Hydralazine HCl (Apresoline) 10 mg SLOW IVP Q4H PRN PRN Reason: Systolic BP > 180 Dextrose/Water (D5w) 1,000 mls @ 0 mls/hr IV .Q0M PRN; As Directed PRN Reason: Hypoglycemia Insulin Detemir 50 units/ (Miscellaneous Medication) 0.5 mls @ 0 mls/hr SC HS [facility] Last Admin: 12/28/16 21:48 Dose: 0.5 mls Cefepime HCl 1 gm/ Sterile (Water) 10 mls @ 120 mls/hr IVPB Q12HR [facility] Last Admin: 12/29/16 09:08 Dose: 10 mls Sodium Chloride (Normal Saline 0.9%) 1,000 mls @ 75 mls/hr IV .[id number] [facility] Last Admin: 12/29/16 05:28 Dose: 1,000 mls Insulin Detemir 10 units/ (Miscellaneous Medication) 0.1 mls @ 0 mls/[facility] [place] PR[facility] Reason: As Directed Last Admin: 12/29/16 09:08 Dose: 0.1 mls Insulin Human Lispro (Humalog) 0 units SC .AGGRESSIVE SLIDING PRN PRN Reason: Aggressive Correctional Scale Last Admin: 12/29/16 09:11 Dose: 3 unit Insulin Human Lispro (Humalog) 0 units SC .BEDTIME SLIDING SC PRN PRN Reason: Bedtime Correctional Scale Last Admin: 12/28/16 00:09 Dose: 3 unit Laxative/Stool Softener (Laxative Of Choice) 1 each PO DAILY PRN PRN Reason: Constipation Loperamide HCl (Imodium) 2 mg PO PRN PRN PRN Reason: Diarrhea/Loose Stools Loratadine (Claritin) 10 mg PO DAILYPRN PRN PRN Reason: Sinus Symptoms Lorazepam (Ativan) 2 mg SLOW IVP Q2H PRN PRN Reason: Anxiety to achieve Florian 2-3 Stop: 01/24/17 20:31 Magnesium Hydroxide (Milk Of Magnesium) 30 ml PO DAILYPRN PRN PRN Reason: Constipation Methylprednisolone Sodium Succinate (Solu-Medrol) 40 mg IVP Q8HR [facility] Last Admin: 12/29/16 05:28 Dose: 40 mg Mineral Oil/White Petrolatum (Eucerin Cream) 0 gm TOP BIDPRN PRN PRN Reason: Dry Skin Mometasone Furoate/Formoterol Fumar (Dulera 200 Mcg/5 Mcg Inhaler) 2 puff INH BID-RT [facility] Last Admin: 12/29/16 08:10 Dose: 2 puff Nebivolol (Bystolic) 5 mg PO HS [facility] Last Admin: 12/28/16 20:35 Dose: Not Given Ondansetron HCl (Zofran Odt) 4 mg PO Q6H PRN PRN Reason: Nausea/Vomiting Ondansetron HCl (Zofran) 4 mg IVP Q6H PRN PRN Reason: Nausea/Vomiting Pantoprazole Sodium (Protonix) 40 mg PO DAILY [facility] Last Admin: 12/29/16 10:30 Dose: 40 mg Phenylephrine HCl (Zach-Synephrine 0.5% Nasal [place]) 0 ml EA NARE PRN PRN PRN Reason: FOR NOSE Propofol (Diprivan) 1,000 mg IV INF PRN; Protocol PRN Reason: TO ACHIEVE FLORIAN SCORE 2-3 Stop: 01/24/17 20:31 Last Admin: 12/27/16 05:47 Dose: 1,000 mg Senna (Senokot) 2 tab PO HSPRN PRN PRN Reason: Constipation Sodium Chloride ([place] Nasal [place] 0.65%) 0 ml EA NARE QIDPRN PRN PRN Reason: Nasal Congestion Last Admin: 12/24/16 20:33 Dose: 1 each Sodium Chloride (Flush - Normal Saline) 10 ml IVF Q12HR [facility] Last Admin: 12/29/16 09:02 Dose: 10 ml Sodium Chloride (Flush - Normal Saline) 10 ml IVF PRN PRN PRN Reason: Saline Flush Last Admin: 12/28/16 05:10 Dose: 10 ml Warfarin Sodium (Coumadin) 1 mg PO 1700 ARELY
[2016-12-29] MEDS: Warfarin Sodium 1 MG TAB PO SCH (17:18)
[2016-12-29] MEDS: Nebivolol HCl 5 MG TAB PO SCH (20:40)
[2016-12-29] MEDS: Insulin Detemir 100 UNITS/ML 50 UNITS in Pre-Filled Syringe SC SCH (21:01)
[2016-12-30] MEDS ORDERED: Diltiazem 125 MG in Sodium Chloride 0.9% 100 ML IVPB SCH (02:30)
[2016-12-30] MEDS: Sodium Chloride 0.9% 1,000 ML IV SCH ×2 (02:41→17:04)
[2016-12-30 04:38] LABS: Prothrombin Time 22.7 SEC (12.0-14.7)
[2016-12-30 04:47] LABS: Anion Gap 11 mmol/L (10-20); BUN (Urea Nitrogen) 62 mg/dL (8.4-25.7); Calc. Creatinine Clearance 57 mL/min (70-130); Calcium 8.9 mg/dL (7.8-10.44); Carbon Dioxide 24 mmol/L (23-31); Chloride 114 mmol/L (98-107); Estimated GFR-MDRD 40
[2016-12-30 05:18] LABS: Band 2 % (5-11); Mean Platelet Volume 7.4 fL (7.4-10.4); Neutrophil 93 % (42-75); Red Blood Cell (RBC) Count 4.81 mill/uL (4.70-6.10); White Blood Cell (WBC) Count 21.6 thou/uL (4.8-10.8)
[2016-12-30] MEDS: Mometasone/Formoterol 120 PUFF INHALER INH SCH ×2 (07:18→18:33)
[2016-12-30] MEDS: Allopurinol 100 MG TAB PO SCH ×2 (08:57→14:58)
[2016-12-30] MEDS: guaiFENesin ER 600 MG TAB PO SCH ×3 (08:57→21:05)
[2016-12-30] MEDS: Calcitriol 0.25 MCG CAP PO SCH ×2 (08:57→14:58)
[2016-12-30] MEDS: STERILE WATER IVPB SCH ×2 (08:57→21:04)
[2016-12-30] MEDS: CEFEPIME IVPB SCH ×2 (08:57→21:04)
[2016-12-30] MEDS: Gabapentin 100 MG CAP PO SCH ×3 (08:57→21:06)
[2016-12-30] MEDS: Insulin Detemir 100 UNITS/ML 10 UNITS in Pre-Filled Syringe 1 EACH SC SCH (08:58)
--- NOTE | 2016-12-30 10:34 | PRG ---
DATE OF SERVICE: 12/30/2016 SERVICE: Renal Medicine. SUBJECTIVE: Mr. Joyner is a 76-year-old white male being followed by the renal service for his acute k idney injury on top of his chronic renal failure. He also went into acute respiratory failure. He h as now been extubated. The concern is he may be aspirating. For that reason, an NG tube will be douglas frank. He voices no new complaints today. The patient is noted to be more awake and alert. OBJECTIVE: VITAL SIGNS: Blood pressure 143/75, heart rate 77, respiratory rate 17, pulse ox 95%. GENERAL: Noted to be awake, sitting comfortable, not in overt distress. SKIN: Adequate turgor. HEENT: He has pinkish conjunctivae, anicteric sclerae. NECK: No neck mass, no carotid bruits, no JVD. CHEST: No deformities. LUNGS: Decreased breath sounds. HEART: Normal sinus rhythm. No murmur, no gallops, no rubs. ABDOMEN: Globular, soft, nontender, no masses. EXTREMITIES: No edema, no deformities. MEDICATIONS: Of 12/30/2016 was reviewed. LABORATORY DATA: Of 12/30/2016, white count 21.6, hemoglobin 14.6, sodium 144, potassium 4.5, chlori de 114, carbon dioxide 24, BUN 62, creatinine 1.68, glucose 104, calcium 8.9. ASSESSMENT AND PLAN: 1. Acute kidney injury/chronic renal failure, continued improvement of renal function. Most recent creatinine is 1.68. There is no indication for any dialytic intervention. Continue supportive care. Please note, the patient has received volume repletion and this is shown to be helping the patient. 2. Acute respiratory failure, resolved - this patient may have underlying aspiration. For that reas on, NG will be placed. For the moment, agree with current management. Continue normal saline at 75 mL per hour. We will continue to recheck base met and CBC in a.m.
--- NOTE | 2016-12-30 10:42 | PDOC.PN ---
- Subjective Encounter Start Date: 12/30/16 Encounter Start Time: 06:45 Patient seen and examined. had BM this morning, No new complaints. No overnight events, pt is very weak - Objective Resuscitation Status: Resuscitation Status FULL:Full Resuscitation MAR Reviewed: Yes Vital Signs & Weight: Vital Signs (12 hours) Temp Pulse Resp Pulse Ox 12/30/16 08:00 97.6 F 12/30/16 07:18 73 16 97 12/30/16 07:04 97 12/30/16 07:03 73 16 97 12/30/16 06:00 97.8 F 12/30/16 02:48 87 16 97 12/30/16 00:00 98.4 F Weight Admit Weight 242 lb Weight 246 lb 7.629 oz Most Recent Monitor Data Heart Rate from ECG 81 NIBP 145/60 NIBP BP-Mean 114 Respiration from ECG 20 SpO2 94 I&O: 12/29/16 12/30/16 12/31/16 06:59 06:59 06:59 Intake Total 1901 2100.5 Output Total 2255 2500 370 Balance -354 -399.5 -370 Result Diagrams: 12/30/16 03:38 12/30/16 03:38 Additional Labs: Accuchecks 12/29/16 12/29/16 12/29/16 23:50 20:57 16:43 POC Glucose 95 117 H 152 H EKG Reviewed by me: Yes (nsr) Phys Exam - Physical Examination Constitutional: NAD HEENT: PERRLA, moist MMs, sclera anicteric Neck: no JVD, supple Respiratory: no wheezing, no rales, no rhonchi reduced air entry Cardiovascular: RRR, no significant murmur Gastrointestinal: soft, non-tender, no distention, positive bowel sounds obesity Musculoskeletal: pulses present, edema present Neurological: non-focal, normal sensation Lymphatic: no nodes Psychiatric: normal affect Skin: no rash, normal turgor Dx/Plan (1) Acute metabolic encephalopathy Code(s): G93.41 - METABOLIC ENCEPHALOPATHY Status: Acute Comment: CO2 narcosis (2) Acute on chronic respiratory failure with hypoxia and hypercapnia Code(s): J96.21 - ACUTE AND CHRONIC RESPIRATORY FAILURE WITH HYPOXIA; J96.22 - ACUTE AND CHRONIC RESPIRATORY FAILURE WITH HYPERCAPNIA Status: Acute Comment : extubated and doing well (3) Acute worsening of stage 3 chronic kidney disease Code(s): N18.3 - CHRONIC KIDNEY DISEASE, STAGE 3 (MODERATE) Status: Acute (4) COPD exacerbation Code(s): J44.1 - CHRONIC OBSTRUCTIVE PULMONARY DISEASE W (ACUTE) EXACERBATION Status: Acute (5) Hyponatremia Code(s): E87.1 - HYPO-OSMOLALITY AND HYPONATREMIA Status: Resolved (6) Chronic anticoagulation Code(s): Z79.01 - [place] (CURRENT) USE OF ANTICOAGULANTS Status: Chronic (7) Chronic diastolic (congestive) heart failure Code(s): I50.32 - CHRONIC DIASTOLIC (CONGESTIVE) HEART FAILURE Status: Chronic (8) Diabetes mellitus, insulin dependent (IDDM), controlled Code(s): E11.9 - TYPE 2 DIABETES MELLITUS WITHOUT COMPLICATIONS; Z79.4 - [place] (CURRENT) USE OF INSULIN Status: Chronic (9) Diabetic neuropathy Code(s): E11.40 - TYPE 2 DIABETES MELLITUS WITH DIABETIC NEUROPATHY, UNSP Status: Chronic (10) Dyslipidemia Code(s): E78.5 - HYPERLIPIDEMIA, UNSPECIFIED Status: Chronic (11) GERD (gastroesophageal reflux disease) Code(s): K21.9 - GASTRO-ESOPHAGEAL REFLUX DISEASE WITHOUT ESOPHAGITIS Status: Chronic (12) Gout Code(s): M10.9 - GOUT, UNSPECIFIED Status: Chronic (13) HTN (hypertension) Code(s): I10 - ESSENTIAL (PRIMARY) HYPERTENSION Status: Chronic Qualifiers: Hypertension type: essential hypertension Qualified Code(s): I10 - Essential (primary) hypertension (14) Obesity (BMI 30.0-34.9) Code(s): E66.9 - OBESITY, UNSPECIFIED Status: Chronic (15) Paroxysmal atrial fibrillation Code(s): I48.0 - PAROXYSMAL ATRIAL FIBRILLATION Status: Chronic - Plan cont current plan of care, plan discussed w/ family, continue antibiotics, speech therapy, respiratory therapy * pt is tolerating modified diet * renal function improving * high wbc may be due to steroid * pt will need more PT/OT and possible placement on discharge * ambulate * medication reviewed as below * symptomatic treatment * discussed with family * when pulmonary ok, will transfer to medical. Review of Systems - Review of Systems Constitutional: Weakness. negative: Fever, Chills, Sweats, Malaise, Other ENT: negative: Ear Pain, Ear Discharge, Nose Pain, Nose Discharge, Nose Congestion, Mouth Pain, Mouth Swelling, Throat Pain, Throat Swelling, Other Respiratory: Cough, Shortness of Breath. negative: Dry, Hemoptysis, SOB with Excertion, Pleuritic Pain, Sputum, Wheezing Cardiovascular: negative: Chest Pain, Palpitations, Orthopnea, Paroxysmal Noc. Dyspnea, Edema, Light Headedness, Other Gastrointestinal: negative: Nausea, Vomiting, Abdominal Pain, Diarrhea, Constipation, Melena, Hematochezia, Other Genitourinary: negative: Dysuria, Frequency, Incontinence, Hematuria, Retention , Other Musculoskeletal: negative: Neck Pain, Shoulder Pain, Arm Pain, Back Pain, Hand Pain, Leg Pain, Foot Pain, Other Skin: negative: Rash, Lesions, Maikol, Bruising, Other - Medications/Allergies Allergies/Adverse Reactions: Allergies Allergy/AdvReac Type Severity Reaction Status Date / Time exenatide [From [place]] Allergy Severe Verified 11/17/12 04:50 sitagliptin phosphate Allergy Severe Verified 11/17/12 04:50 [From Januvia] clindamycin Allergy Intermediate Swollen Verified 11/17/12 04:48 Lips erythromycin base Allergy Intermediate Swollen Verified 11/17/12 04:48 [Erythromycin Base] Lips hydrocodone Allergy Intermediate Verified 11/17/12 04:49 Sulfa (Sulfonamide Allergy Intermediate Swollen Verified 11/17/12 04:49 Antibiotics) Lips phenol Allergy Verified 11/17/12 04:50 propoxyphene napsylate Allergy Verified 11/17/12 04:50 [From Darvocet-N 100] Medications: Current Medications Acetaminophen (Tylenol) 650 mg PO Q4H PRN PRN Reason: Headache/Fever or Pain Al Hydroxide/Mg Hydroxide (Maalox) 30 ml PO Q6H PRN PRN Reason: Heartburn or Indigestion Albuterol/Ipratropium (Duoneb) 3 ml NEB [id number] [facility] Last Admin: 12/30/16 07:03 Dose: 3 ml Allopurinol (Zyloprim) 50 mg PO DAILY [facility] Last Admin: 12/30/16 08:57 Dose: 50 mg Artificial Tears (Tears Naturale) 0 drop EA EYE PRN PRN PRN Reason: Dry Eyes Benzonatate (Tessalon) 100 mg PO Q4H PRN PRN Reason: Cough Bisacodyl (Dulcolax) 10 mg MS DAILYPRN PRN PRN Reason: Constipation Last Admin: 12/29/16 14:51 Dose: 10 mg Calcitriol (Rocaltrol) 0.25 mcg PO DAILY [facility] Last Admin: 12/30/16 08:57 Dose: 0.25 mcg Clonidine (Catapres) 0.1 mg PO Q4H PRN PRN Reason: Systolic BP > 180 Dextrose/Water (Dextrose 50%) 25 gm SLOW IVP PRN PRN PRN Reason: Hypoglycemia Gabapentin (Neurontin) 100 mg PO TID [facility] Last Admin: 12/30/16 08:57 Dose: 100 mg Glucagon (Glucagon) 1 mg IM PRN PRN PRN Reason: Hypoglycemia Guaifenesin (Mucinex) 1,200 mg PO Q12HR [facility] Last Admin: 12/30/16 08:57 Dose: 1,200 mg Hydralazine HCl (Apresoline) 10 mg SLOW IVP Q4H PRN PRN Reason: Systolic BP > 180 Dextrose/Water (D5w) 1,000 mls @ 0 mls/hr IV .Q0M PRN; As Directed PRN Reason: Hypoglycemia Insulin Detemir 50 units/ (Miscellaneous Medication) 0.5 mls @ 0 mls/hr SC HS [facility] Last Admin: 12/29/16 21:01 Dose: Not Given Cefepime HCl 1 gm/ Sterile (Water) 10 mls @ 120 mls/hr IVPB Q12HR [facility] Last Admin: 12/30/16 08:57 Dose: 10 mls Sodium Chloride (Normal Saline 0.9%) 1,000 mls @ 75 mls/hr IV .[id number] [facility] Last Admin: 12/30/16 02:41 Dose: 1,000 mls Insulin Detemir 10 units/ (Miscellaneous Medication) 0.1 mls @ 0 mls/hr SC QAM [facility] PRN Reason: As Directed Last Admin: 12/30/16 08:58 Dose: 0.1 mls Diltiazem HCl 125 mg/ Sodium (Chloride) 125 mls @ 5 mls/hr IVPB INF ARELY; 5 MG/ HR PRN Reason: Protocol Last Admin: 12/30/16 02:35 Dose: 125 mls Insulin Human Lispro (Humalog) 0 units SC .AGGRESSIVE SLIDING PRN PRN Reason: Aggressive Correctional Scale Last Admin: 12/29/16 09:11 Dose: 3 unit Insulin Human Lispro (Humalog) 0 units SC .BEDTIME SLIDING SC PRN PRN Reason: Bedtime Correctional Scale Last Admin: 12/28/16 00:09 Dose: 3 unit Laxative/Stool Softener (Laxative Of Choice) 1 each PO DAILY PRN PRN Reason: Constipation Loperamide HCl (Imodium) 2 mg PO PRN PRN PRN Reason: Diarrhea/Loose Stools Loratadine (Claritin) 10 mg PO DAILYPRN PRN PRN Reason: Sinus Symptoms Lorazepam (Ativan) 2 mg SLOW IVP Q2H PRN PRN Reason: Anxiety to achieve Florian 2-3 Stop: 01/24/17 20:31 Magnesium Hydroxide (Milk Of Magnesium) 30 ml PO DAILYPRN PRN PRN Reason: Constipation Methylprednisolone Sodium Succinate (Solu-Medrol) 40 mg IVP Q8HR [facility] Last Admin: 12/30/16 05:18 Dose: 40 mg Mineral Oil/White Petrolatum (Eucerin Cream) 0 gm TOP BIDPRN PRN PRN Reason: Dry Skin Mometasone Furoate/Formoterol Fumar (Dulera 200 Mcg/5 Mcg Inhaler) 2 puff INH BID-RT [facility] Last Admin: 12/30/16 07:18 Dose: 2 puff Nebivolol (Bystolic) 5 mg PO HS [facility] Last Admin: 12/29/16 20:40 Dose: 5 mg Ondansetron HCl (Zofran Odt) 4 mg PO Q6H PRN PRN Reason: Nausea/Vomiting Ondansetron HCl (Zofran) 4 mg IVP Q6H PRN PRN Reason: Nausea/Vomiting Pantoprazole Sodium (Protonix) 40 mg PO DAILY [facility] Last Admin: 12/30/16 08:57 Dose: 40 mg Phenylephrine HCl (Zach-Synephrine 0.5% Nasal [place]) 0 ml EA NARE PRN PRN PRN Reason: FOR NOSE Propofol (Diprivan) 1,000 mg IV INF PRN; Protocol PRN Reason: TO ACHIEVE FLORIAN SCORE 2-3 Stop: 01/24/17 20:31 Last Admin: 12/27/16 05:47 Dose: 1,000 mg Senna (Senokot) 2 tab PO HSPRN PRN PRN Reason: Constipation Sodium Chloride ([place] Nasal [place] 0.65%) 0 ml EA NARE QIDPRN PRN PRN Reason: Nasal Congestion Last Admin: 12/24/16 20:33 Dose: 1 each Sodium Chloride (Flush - Normal Saline) 10 ml IVF Q12HR [facility] Last Admin: 12/30/16 08:51 Dose: 10 ml Sodium Chloride (Flush - Normal Saline) 10 ml IVF PRN PRN PRN Reason: Saline Flush Last Admin: 12/28/16 05:10 Dose: 10 ml Warfarin Sodium (Coumadin) 1 mg PO 1700 [facility] Last Admin: 12/29/16 17:18 Dose: 1 mg
--- NOTE | 2016-12-30 12:13 | CON ---
DATE OF CONSULTATION: 12/30/2016 REASON FOR CONSULTATION: Atrial fibrillation. PRIMARY DEPILATORY PAINTER: Dr. Chuck Smith. REFERRING PROVIDER: Dr. Hinojosa. HISTORY OF PRESENT ILLNESS: Mr. Joyner is an unfortunate 76-year-old gentleman who recently presented with a COPD exacerbation. Patient then on 12/26/2016 developed respiratory distress, encephalopathy, and subsequently was intubated. He has now been extubated. He has had intermittent atrial fibrilla tion. He was placed on IV Cardizem. PAST MEDICAL HISTORY: COPD, renal failure, diabetes mellitus, obesity, atrial fibrillation. HOME MEDICATIONS: Include Lasix, calcium, Coumadin, aspirin, Spiriva, allopurinol, Symbicort, DuoNeb , and insulin. SOCIAL HISTORY: No current tobacco or alcohol use, previous smoker. REVIEW OF SYSTEMS: Ten-point review of systems is reviewed and as above, otherwise negative. PHYSICAL EXAMINATION: VITAL SIGNS: Blood pressure 140/65, pulse 84, temperature afebrile. GENERAL: Patient is a pleasant male who is in no acute distress. The patient appears his stated age . NEUROLOGIC: The patient is alert and oriented times 3 with no focal neurologic deficits. HEENT: Sclerae without icterus. Mouth has moist mucous membranes with normal pallor. NECK: No JVD. Carotid upstroke brisk. No bruits bilaterally. LUNGS: Clear to auscultation with unlabored respirations. BACK: No scoliosis or kyphosis. CARDIAC: Regular rate and rhythm with normal S1 and S2. No S3 or S4 noted. No significant rubs, mu rmurs, thrills, or gallops noted throughout the precordium. PMI is not displaced. There is no lori ternal heave. ABDOMEN: Soft, nontender, nondistended. No peritoneal signs present. No hepatosplenomegaly. No abnormal striae. EXTREMITIES: 2+ femoral and 2+ dorsalis pedis pulses. No cyanosis, clubbing, or edema. SKIN: No gross abnormalities. PERTINENT LABORATORY DATA: Hemoglobin 14.6, creatinine 1.68. IMPRESSION: Atrial fibrillation, now sinus rhythm with premature atrial complexes versus wandering a trial pacemaker. RECOMMENDATIONS: Patient is currently on IV Cardizem. We will substitute for p.o. Cardizem. We wi ll give 180 mg of Cardizem now. Continue Coumadin as prescribed to achieve an INR of 2-3. Echo with Doppler then performed on 12/24/2016 with LVEF 60%-65%. Otherwise, I have no further recommendation s.
--- NOTE | 2016-12-30 15:10 | PRG ---
DATE OF SERVICE: 12/30/2016 SUBJECTIVE: Sitting up in the neuro chair, he is extremely weak. He passed a swallowing evaluation at bedside, but did not feel comfortable feeding, he certainly can take in the calories he needs. OBJECTIVE: VITAL SIGNS: He is afebrile, heart rate is 85, and blood pressure 159/83. LUNGS: Remarkable for distant breath sounds. CARDIOVASCULAR: Regular rhythm. ABDOMEN: Soft. LABORATORY DATA: White count 21.6, hemoglobin 14.6, and platelets 265. Sodium 144, potassium 4.5, chloride 114, bicarb 24, BUN 62, and creatinine 1.68. IMPRESSION: 1. Advanced chronic obstructive pulmonary disease. 2. Extreme deconditioning. 3. Oropharyngeal transfer dysphagia. I have recommended a Dobbhoff tube placement. 4. Status post respiratory failure, relatively stable post-extubation. 5. Atrial fibrillation, now being followed by Cardiology. 6. Chronic kidney disease. 7. Diabetes. PLAN: Dobbhoff feeds. Critical care time 35 min. MINNA
--- NOTE | 2016-12-30 15:31 | RAD ---
AP ABDOMINAL RADIOGRAPH: Date: 12/30/16 HISTORY: Dobbhoff feeding tube placement. FINDINGS: Lower abdomen is excluded from view. Dobbhoff feeding tube is noted in place, but courses over the ri ght mainstem bronchus with tip overlying the right lung base. Multiple dilated loops of small bowel a re seen in the visualized upper abdomen with gaseous distention of colon. IMPRESSION: 1. Dobbhoff feeding tube noted in place overlying the right mainstem bronchus with tip overlying the right lung base likely related to endotracheal tube in the peripheral bronchus or lung parenchyma. 2. Gaseous distention of loops of bowel in the upper abdomen. Above findings discussed with Courtney nurse in CCU, on 12/30/16 at 1449 hours. CODE CR. POS: ESTUARDO
[2016-12-30] MEDS: Warfarin Sodium 1 MG TAB PO SCH (17:04)
[2016-12-30] MEDS: Diltiazem HCl 125 MG, Admixture Fee 1 EACH in Sodium Chloride 0.9% 100 ML SLOW IVP SCH (21:04)
[2016-12-30] MEDS: Insulin Detemir 100 UNITS/ML 50 UNITS in Pre-Filled Syringe SC SCH (21:05)
[2016-12-30] MEDS: Nebivolol HCl 5 MG TAB PO SCH (21:05)
[2016-12-30 23:54] LABS: Oxyhemoglobin 92.7 % (94.0-97.0); Sodium 149 mmol/L (135-148)
[2016-12-30 23:57] LABS: Mode NC; Modified Allen's Test POSITIVE; Vent NO
--- NOTE | 2016-12-31 02:50 | PDOC.EVN ---
Event Note - Event Note Event Note: Pt seen for altered mental status. Pt's family report that pt's mental status has been declining. Pt is unable to answer questions. S1, S2, Lungs : occ exp wheeze. Checked ABGs, pt is not hypercapnic. Continue to monitor.
[2016-12-31 04:43] LABS: Anion Gap 14 mmol/L (10-20); BUN (Urea Nitrogen) 62 mg/dL (8.4-25.7); Calc. Creatinine Clearance 58 mL/min (70-130); Carbon Dioxide 20 mmol/L (23-31); Chloride 117 mmol/L (98-107); Estimated GFR-MDRD 40
[2016-12-31] MEDS: Sodium Chloride 0.9% 1,000 ML IV SCH (05:03)
[2016-12-31 05:20] LABS: Acanthocytes SLIGHT = 1-5 cells (100X) (None Seen); Band 3 % (5-11); Hematocrit 44.4 % (42.0-52.0); Mean Platelet Volume 7.1 fL (7.4-10.4); Neutrophil 93 % (42-75); Red Blood Cell (RBC) Count 4.71 mill/uL (4.70-6.10); White Blood Cell (WBC) Count 18.9 thou/uL (4.8-10.8)
[2016-12-31] MEDS: Mometasone/Formoterol 120 PUFF INHALER INH SCH ×2 (08:43→19:02)
[2016-12-31] MEDS: Calcitriol 0.25 MCG CAP PO SCH (09:42)
[2016-12-31] MEDS: guaiFENesin ER 600 MG TAB PO SCH ×2 (09:42→21:09)
[2016-12-31] MEDS: Allopurinol 100 MG TAB PO SCH (09:42)
[2016-12-31] MEDS: Dextrose 5 %-0.45 % NaCl 1,000 ML IV SCH ×2 (09:57→21:05)
[2016-12-31] MEDS: CEFEPIME IVPB SCH ×2 (09:57→21:04)
[2016-12-31] MEDS: STERILE WATER IVPB SCH ×2 (09:57→21:04)
--- NOTE | 2016-12-31 10:06 | RAD ---
SEMI UPRIGHT CHEST: History: 76-year-old male with respiratory insufficiency. Follow up. Comparison: 12-29-16 FINDINGS: Monitor leads overlie the chest. Stable increased linear and interstitial markings bilaterally, evide nce for some stable chronic change. No confluent pneumonia, overt edema, or pleural effusion. IMPRESSION: Minimal stable chronic changes. No new process. POS: NEHEMIAH
--- NOTE | 2016-12-31 10:31 | PRG ---
DATE OF SERVICE: 12/31/2016 PULMONARY OR CRITICAL CARE PROGRESS NOTE SUBJECTIVE: Mr. Joyner remains in the CCU. He is very weak. He has been unable to take much in the w ay of food or liquids. PHYSICAL EXAMINATION: VITAL SIGNS: His temperature is 98.7, pulse 95, blood pressure 137/106, 24 hour intake 1836 and outp ut 2325. HEENT: Unremarkable. NECK: No JVD. LUNGS: Poor air movement without wheezing. CARDIOVASCULAR: S1 and S2. Irregularly irregular, on a Cardizem drip. ABDOMEN: Soft, nontender, nondistended. EXTREMITIES: No clubbing, cyanosis, or edema. LABORATORY DATA: Sodium 146, potassium 4.6, chloride 117, CO2 20, BUN 62, creatinine 1.6, and glucos e 225. ABG, pH 7.36, pCO2 of 39, pO2 of 70. White blood cell count 18.9, hemoglobin 14, hematocrit 44.4, and platelet count 265. ASSESSMENT: 1. Severe deconditioning. 2. Chronic obstructive pulmonary disease with exacerbation requiring mechanical ventilation - now is post-extubation. 3. Chronic kidney disease. 4. Atrial fibrillation. 5. Diabetes mellitus. PLAN: 1. The patient is extremely weak and in my opinion has a very poor chance of improving. 2. Discussed with family. 3. We will try large bore NG tube to see if we can feed him through that. Otherwise, he will need G astroenterology consultation. I have to consider feeding tube placement.
[2016-12-31] MEDS: Insulin Detemir 100 UNITS/ML 10 UNITS in Pre-Filled Syringe 1 EACH SC SCH (11:15)
--- NOTE | 2016-12-31 13:02 | PDOC.PN ---
- Subjective Encounter Start Date: 12/31/16 Encounter Start Time: 10:30 Patient seen and examined. No overnight events - Objective Resuscitation Status: Resuscitation Status DNR:Do Not Resuscitate MAR Reviewed: Yes Vital Signs & Weight: Vital Signs (12 hours) Temp Pulse Resp Pulse Ox 12/31/16 12:00 98.4 F 12/31/16 08:43 96 22 H 92 L 12/31/16 08:00 98.7 F 94 18 94 L 12/31/16 07:36 92 L 12/31/16 07:33 94 18 92 L 12/31/16 07:00 98.7 F 12/31/16 03:00 98.4 F 12/31/16 02:48 89 18 97 Weight Admit Weight 242 lb Weight 246 lb 14.684 oz Most Recent Monitor Data Heart Rate from ECG 141 NIBP 137/87 NIBP BP-Mean 108 Respiration from ECG 20 SpO2 95 I&O: 12/30/16 12/31/16 01/01/17 06:59 06:59 06:59 Intake Total 2100.5 1836 Output Total 2500 2325 700 Balance -399.5 -489 -700 Result Diagrams: 12/31/16 04:02 12/31/16 04:02 Additional Labs: Accuchecks 12/31/16 12/31/16 12/30/16 11:14 05:14 21:03 POC Glucose 274 H 196 H 150 H 12/30/16 17:03 POC Glucose 135 H Radiology Reviewed by me: Yes (chest xray) EKG Reviewed by me: Yes (afib) Phys Exam - Physical Examination Constitutional: NAD HEENT: PERRLA, moist MMs, sclera anicteric gurgling sound+ Neck: no JVD, supple coarse breath sound Cardiovascular: no significant murmur, irregular Gastrointestinal: soft, positive bowel sounds distended Musculoskeletal: pulses present, edema present Neurological: non-focal Lymphatic: no nodes Psychiatric: normal affect Skin: no rash, normal turgor Dx/Plan (1) Acute metabolic encephalopathy Code(s): G93.41 - METABOLIC ENCEPHALOPATHY Status: Acute Comment: CO2 narcosis (2) Acute on chronic respiratory failure with hypoxia and hypercapnia Code(s): J96.21 - ACUTE AND CHRONIC RESPIRATORY FAILURE WITH HYPOXIA; J96.22 - ACUTE AND CHRONIC RESPIRATORY FAILURE WITH HYPERCAPNIA Status: Acute Comment : extubated and doing well (3) Acute worsening of stage 3 chronic kidney disease Code(s): N18.3 - CHRONIC KIDNEY DISEASE, STAGE 3 (MODERATE) Status: Acute (4) COPD exacerbation Code(s): J44.1 - CHRONIC OBSTRUCTIVE PULMONARY DISEASE W (ACUTE) EXACERBATION Status: Acute (5) Hyponatremia Code(s): E87.1 - HYPO-OSMOLALITY AND HYPONATREMIA Status: Resolved (6) Chronic anticoagulation Code(s): Z79.01 - FDC (CURRENT) USE OF ANTICOAGULANTS Status: Chronic (7) Chronic diastolic (congestive) heart failure Code(s): I50.32 - CHRONIC DIASTOLIC (CONGESTIVE) HEART FAILURE Status: Chronic (8) Diabetes mellitus, insulin dependent (IDDM), controlled Code(s): E11.9 - TYPE 2 DIABETES MELLITUS WITHOUT COMPLICATIONS; Z79.4 - FDC (CURRENT) USE OF INSULIN Status: Chronic (9) Diabetic neuropathy Code(s): E11.40 - TYPE 2 DIABETES MELLITUS WITH DIABETIC NEUROPATHY, UNSP Status: Chronic (10) Dyslipidemia Code(s): E78.5 - HYPERLIPIDEMIA, UNSPECIFIED Status: Chronic (11) GERD (gastroesophageal reflux disease) Code(s): K21.9 - GASTRO-ESOPHAGEAL REFLUX DISEASE WITHOUT ESOPHAGITIS Status: Chronic (12) Gout Code(s): M10.9 - GOUT, UNSPECIFIED Status: Chronic (13) HTN (hypertension) Code(s): I10 - ESSENTIAL (PRIMARY) HYPERTENSION Status: Chronic Qualifiers: Hypertension type: essential hypertension Qualified Code(s): I10 - Essential (primary) hypertension (14) Obesity (BMI 30.0-34.9) Code(s): E66.9 - OBESITY, UNSPECIFIED Status: Chronic (15) Paroxysmal atrial fibrillation Code(s): I48.0 - PAROXYSMAL ATRIAL FIBRILLATION Status: Chronic - Plan cont current plan of care, plan discussed w/ family, alvarado catheter, continue antibiotics, PT/OT, social worker delinquency prevention, speech therapy, respiratory therapy * code status discussed and pt's , daughter and pt agreed with DNR * prognosis is very poor * will consult palliative care * pt does not want repeat intubation * not a great candidate for PEG * may need hospice * supportive care * continue cardizem drip. Review of Systems - Review of Systems Other: unable o review as pt is very lethargic and not cooperative - Medications/Allergies Allergies/Adverse Reactions: Allergies Allergy/AdvReac Type Severity Reaction Status Date / Time exenatide [From Byetta] Allergy Severe Verified 11/17/12 04:50 sitagliptin phosphate Allergy Severe Verified 11/17/12 04:50 [From Januvia] clindamycin Allergy Intermediate Swollen Verified 11/17/12 04:48 Lips erythromycin base Allergy Intermediate Swollen Verified 11/17/12 04:48 [Erythromycin Base] Lips hydrocodone Allergy Intermediate Verified 11/17/12 04:49 Sulfa (Sulfonamide Allergy Intermediate Swollen Verified 11/17/12 04:49 Antibiotics) Lips phenol Allergy Verified 11/17/12 04:50 propoxyphene napsylate Allergy Verified 11/17/12 04:50 [From Darvocet-N 100] Medications: Current Medications Acetaminophen (Tylenol) 650 mg PO Q4H PRN PRN Reason: Headache/Fever or Pain Al Hydroxide/Mg Hydroxide (Maalox) 30 ml PO Q6H PRN PRN Reason: Heartburn or Indigestion Albuterol/Ipratropium (Duoneb) 3 ml NEB [id number] [facility] Last Admin: 12/31/16 07:33 Dose: 3 ml Allopurinol (Zyloprim) 50 mg PO DAILY [facility] Last Admin: 12/31/16 09:42 Dose: Not Given Artificial Tears (Tears Naturale) 0 drop EA EYE PRN PRN PRN Reason: Dry Eyes Benzonatate (Tessalon) 100 mg PO Q4H PRN PRN Reason: Cough Bisacodyl (Dulcolax) 10 mg [place] DAILYPRN PRN PRN Reason: Constipation Last Admin: 12/29/16 14:51 Dose: 10 mg Calcitriol (Rocaltrol) 0.25 mcg PO DAILY [facility] Last Admin: 12/31/16 09:42 Dose: Not Given Clonidine (Catapres) 0.1 mg PO Q4H PRN PRN Reason: Systolic BP > 180 Dextrose/Water (Dextrose 50%) 25 gm SLOW IVP PRN PRN PRN Reason: Hypoglycemia Enoxaparin Sodium (Lovenox) 100 mg SC 0900,2100 [facility] Glucagon (Glucagon) 1 mg IM PRN PRN PRN Reason: Hypoglycemia Guaifenesin (Mucinex) 1,200 mg PO Q12HR [facility] Last Admin: 12/31/16 09:42 Dose: Not Given Hydralazine HCl (Apresoline) 10 mg SLOW IVP Q4H PRN PRN Reason: Systolic BP > 180 Dextrose/Water (D5w) 1,000 mls @ 0 mls/hr IV .Q0M PRN; As Directed PRN Reason: Hypoglycemia Insulin Detemir 50 units/ (Miscellaneous Medication) 0.5 mls @ 0 mls/hr SC HS [facility] Last Admin: 12/30/16 21:05 Dose: Not Given Cefepime HCl 1 gm/ Sterile (Water) 10 mls @ 120 mls/hr IVPB Q12HR [facility] Last Admin: 12/31/16 09:57 Dose: 10 mls Insulin Detemir 10 units/ (Miscellaneous Medication) 0.1 mls @ 0 mls/hr SC QAM [facility] PRN Reason: As Directed Last Admin: 12/31/16 11:15 Dose: 0.1 mls Diltiazem HCl 125 mg/Miscellaneous Medication 1 each/ Sodium Chloride 125 mls @ 0 mls/hr SLOW IVP INF ARELY; As Directed PRN Reason: Protocol Last Admin: 12/30/16 21:04 Dose: 125 mls Dextrose/Sodium Chloride (D5 1/2 Ns) 1,000 mls @ 75 mls/hr IV .[id number] [facility] Last Admin: 12/31/16 09:57 Dose: 1,000 mls Insulin Human Lispro (Humalog) 0 units SC .AGGRESSIVE SLIDING PRN PRN Reason: Aggressive Correctional Scale Last Admin: 12/29/16 09:11 Dose: 3 unit Insulin Human Lispro (Humalog) 0 units SC .BEDTIME SLIDING SC PRN PRN Reason: Bedtime Correctional Scale Last Admin: 12/28/16 00:09 Dose: 3 unit Laxative/Stool Softener (Laxative Of Choice) 1 each PO DAILY PRN PRN Reason: Constipation Loperamide HCl (Imodium) 2 mg PO PRN PRN PRN Reason: Diarrhea/Loose Stools Magnesium Hydroxide (Milk Of Magnesium) 30 ml PO DAILYPRN PRN PRN Reason: Constipation Methylprednisolone Sodium Succinate (Solu-Medrol) 40 mg IVP Q8HR [facility] Last Admin: 12/31/16 05:03 Dose: 40 mg Mineral Oil/White Petrolatum (Eucerin Cream) 0 gm TOP BIDPRN PRN PRN Reason: Dry Skin Mometasone Furoate/Formoterol Fumar (Dulera 200 Mcg/5 Mcg Inhaler) 2 puff INH BID-RT [facility] Last Admin: 12/31/16 08:43 Dose: 2 puff Nebivolol (Bystolic) 5 mg PO HS [facility] Last Admin: 12/30/16 21:05 Dose: Not Given Ondansetron HCl (Zofran Odt) 4 mg PO Q6H PRN PRN Reason: Nausea/Vomiting Ondansetron HCl (Zofran) 4 mg IVP Q6H PRN PRN Reason: Nausea/Vomiting Pantoprazole Sodium (Protonix) 40 mg PO DAILY [facility] Last Admin: 12/31/16 09:42 Dose: Not Given Phenylephrine HCl (Zach-Synephrine 0.5% Nasal [place]) 0 ml EA NARE PRN PRN PRN Reason: FOR NOSE Senna (Senokot) 2 tab PO HSPRN PRN PRN Reason: Constipation Sodium Chloride ([place] Nasal [place] 0.65%) 0 ml EA NARE QIDPRN PRN PRN Reason: Nasal Congestion Last Admin: 12/24/16 20:33 Dose: 1 each Sodium Chloride (Flush - Normal Saline) 10 ml IVF Q12HR [facility] Last Admin: 12/31/16 10:03 Dose: 10 ml Sodium Chloride (Flush - Normal Saline) 10 ml IVF PRN PRN PRN Reason: Saline Flush Last Admin: 12/28/16 05:10 Dose: 10 ml Warfarin Sodium (Coumadin) 1 mg PO 1700 [facility] Last Admin: 12/30/16 17:04 Dose: Not Given
--- NOTE | 2016-12-31 13:29 | PRG ---
DATE OF SERVICE: 12/31/2016 SUBJECTIVE: Mr. Joyner today appears worse. He appears to be increased respirations and changes in me ntation. No current symptoms noted. His heart rate appears stable. He fluctuate between atrial fib rillation and sinus rhythm with premature atrial contractions versus wandering atrial pacemaker. PHYSICAL EXAMINATION: VITAL SIGNS: Blood pressure 137/84, pulse 86, respirations 20-24. LUNGS: Rhonchi, rales bilaterally. CARDIAC: Irregular, irregular. ABDOMEN: Soft, nontender, nondistended. EXTREMITIES: 1+ pitting edema. PERTINENT LABS: Hemoglobin 14, creatinine 1.66. IMPRESSION: 1. Atrial fibrillation. 2. Chronic obstructive pulmonary disease. 3. Respiratory failure. RECOMMENDATIONS: I am not able to use p.o. Cardizem given difficulty swallowing. We will continue t he IV Cardizem for rate control. We will also add Lovenox 1 mg/kg subcu q.12h. given that he is not taking Coumadin. The family is trying to decide on PEG tube placement. The patient has been made DN R by the primary team.
[2016-12-31] MEDS: HumaLOG 300 UNITS/3 ML VIAL SC PRN ×2 (16:34→21:06)
[2016-12-31] MEDS: Warfarin Sodium 1 MG TAB PO SCH (16:40)
--- NOTE | 2016-12-31 18:52 | CON ---
DATE OF CONSULTATION: 12/31/2016 REQUESTING PHYSICIAN: Dr. Osorio. REASON FOR CONSULTATION: PEG tube placement. HISTORY OF PRESENT ILLNESS: Edmundo Joyner is a 76-year-old man previously seen by my GI colleague, Dr Dipesh Hughes. Mr. Joyner was admitted to the hospital 1 week ago with a COPD exacerbation and respi ratory failure. He was intubated for several days, but is now post-extubation. His clinical course has been complicated by encephalopathy and severe deconditioning. He has really not had any signific ant oral intake since admission and his family says really for a couple of weeks prior to admission liam rodriguez. There were issues with Dobbhoff tube placement over the past couple of days and the patient s tated that he does not want any further Dobbhoff tubes. The family is also made the decision to have him be DNR/DNI. Evidently, his prognosis is quite poor. Palliative Care consultation is pending to day to discuss options. I am consulted for consideration of PEG tube placement given his severe deco nditioning and malnutrition. REVIEW OF SYSTEMS: Unable to obtain as the patient is somewhat delirious and does not respond to que stions appropriately. PAST MEDICAL HISTORY: COPD, secondary to smoking; history of recurrent atrial flutter, status post a blation; diabetes, type 2, on insulin pump; gastroesophageal reflux disease; chronic kidney disease, stage 3; gout; hypertension; hyperlipidemia; anemia of kidney disease; TIA; moderate aortic regurgita tion; chronic diastolic heart failure. SOCIAL HISTORY: He has a lot of family support. His is here at the hospital with him as well a s multiple other family members. He quit smoking in 1999. No alcohol abuse. FAMILY HISTORY: Father had colon cancer. ALLERGIES: CLINDAMYCIN, BYETTA, SITAGLIPTIN, SULFA. MEDICATIONS: DuoNeb, allopurinol, Tessalon Perles, cefepime IV, diltiazem, Lovenox subcutaneous inje ctions, insulin, stool softener, methylprednisolone 40 mg IV q.8 hours, Zofran p.r.n., Bystolic, shelli a p.r.n., warfarin 1 mg daily. PHYSICAL EXAMINATION: VITAL SIGNS: Pulse 91, blood pressure 167/81, 92% oxygen saturation on 3 liters nasal cannula, tempe rature is 98.4. GENERAL: Critically ill, obese gentleman, lying in bed comfortably, in mild respiratory di stress. SKIN: No jaundice, no rash visible or palpable. He has several scars in the anterior abdomen. EYES: No scleral icterus. ENT: Mucous membranes moist. LYMPH: No submandibular or supraclavicular lymphadenopathy. THYROID: Nontender to palpation. HEART: Regular rate and rhythm. LUNGS: Bibasilar crackles, some faint expiratory wheezing. ABDOMEN: Protuberant, tympanitic to percussion. Bowel sounds are present, soft, nontender to palpat ion. EXTREMITIES: No peripheral edema. VESSELS: Radial pulses 2+ bilaterally. LABORATORY STUDIES: WBC 18.9, hemoglobin 14.0, platelets 265. INR 1.9, sodium 146, potassium 4.6, B UN 62, creatinine 1.66, glucose 274. ASSESSMENT AND PLAN: 1. Severe deconditioning. 2. Malnutrition. 3. Severe chronic obstructive pulmonary disease. I had a very long discussion with the patient and with multiple family members today regarding his ov erall status and the risks, benefits and alternatives of PEG tube placement. I agree that he is like ly not going to be able to get sufficient nutrition by mouth, and Dobbhoff tube placement has been an issue and the patient is not going to tolerate the Dobbhoff tube. So, if the goal is to extend life as long as possible, then enteral feeding with PEG placement would be necessary. On the other hand, there are multiple risks involved with proceeding with PEG placement, particularly anesthetic risk w ith any procedure. I think there is a high likelihood that the patient might have respiratory compro mise during the procedure and would need to be endotracheally intubated again, which is something flory mayer wants. This is in addition to all the other risks of the procedure including bleeding, infection , perforated viscus, surgery, failure of the procedure or . That being said, I am willing to at tempt PEG placement if that is what everybody wishes. At this point, the family remains undecided. Palliative Care consultation is pending and they will have further discussions with them. If it is d ecided to proceed with PEG tube placement, please let me know and we can arrange for this, perhaps to panchal or the next day. Thank you for the consultation. Please call with questions or concerns.
[2016-12-31] MEDS: Insulin Detemir 100 UNITS/ML 50 UNITS in Pre-Filled Syringe SC SCH (21:04)
[2016-12-31] MEDS: Enoxaparin Sodium 100 MG/ML SYRINGE SC SCH (21:04)
[2016-12-31] MEDS: Nebivolol HCl 5 MG TAB PO SCH (21:09)
[2016-12-31] MEDS: Diltiazem HCl 125 MG, Admixture Fee 1 EACH in Sodium Chloride 0.9% 100 ML SLOW IVP SCH (23:02)
[2017-01-01 05:02] LABS: Anion Gap 12 mmol/L (10-20); BUN (Urea Nitrogen) 60 mg/dL (8.4-25.7); Calc. Creatinine Clearance 53 mL/min (70-130); Calcium 8.7 mg/dL (7.8-10.44); Carbon Dioxide 22 mmol/L (23-31); Chloride 119 mmol/L (98-107); Estimated GFR-MDRD 36
[2017-01-01 05:29] LABS: Band 1 % (5-11); Hematocrit 42.9 % (42.0-52.0); Mean Platelet Volume 7.2 fL (7.4-10.4); Neutrophil 92 % (42-75); Red Blood Cell (RBC) Count 4.51 mill/uL (4.70-6.10); White Blood Cell (WBC) Count 19.6 thou/uL (4.8-10.8)
[2017-01-01] MEDS: HumaLOG 300 UNITS/3 ML VIAL SC PRN ×3 (05:42→21:38)
[2017-01-01] MEDS: Allopurinol 100 MG TAB PO SCH (09:00)
[2017-01-01] MEDS: Calcitriol 0.25 MCG CAP PO SCH (09:00)
[2017-01-01] MEDS: Enoxaparin Sodium 100 MG/ML SYRINGE SC SCH (09:00)
[2017-01-01] MEDS: guaiFENesin ER 600 MG TAB PO SCH ×2 (09:00→21:36)
--- NOTE | 2017-01-01 09:12 | RAD ---
PORTABLE AP CHEST XRAY: DATE: 01/01/17. History On ventilator. Followup evaluation. COMPARISON: 12/31/16. FINDINGS: Cardiac silhouette is magnified by projection. Pulmonary vasculature is within normal limits. There is stable mild prominence of interstitial densities. No focal area of consolidation is seen. Incre ased density at the left lung base likely related to overlying soft tissue. There is osteopenia. IMPRESSION: Stable chest. POS: NEHEMIAH
[2017-01-01] MEDS: CEFEPIME IVPB SCH ×2 (09:16→21:35)
[2017-01-01] MEDS: STERILE WATER IVPB SCH ×2 (09:16→21:35)
[2017-01-01] MEDS ORDERED: Benzocaine 20% Spray 60 ML CAN ONE (09:31)
[2017-01-01] MEDS ORDERED: Ketamine 50 MG/ML VIAL ONE (09:43)
[2017-01-01] MEDS: Insulin Detemir 100 UNITS/ML 10 UNITS in Pre-Filled Syringe 1 EACH SC SCH (11:04)
[2017-01-01 11:09] LABS: Prothrombin Time 32.1 SEC (12.0-14.7)
--- NOTE | 2017-01-01 11:12 | PRG ---
DATE OF SERVICE: 01/01/2017 SUBJECTIVE: He remains in the ICU. He is tentatively scheduled for a feeding tube placement later . PHYSICAL EXAMINATION: VITAL SIGNS: Temperature is 98.7, pulse 79, blood pressure 151/76. 24 hour intake 1920, output 2540 . HEENT: Unremarkable. NECK: No JVD. LUNGS: Poor air movement bilaterally. CARDIOVASCULAR: S1, S2 regular. ABDOMEN: Soft. EXTREMITIES: No edema. LABORATORY DATA: Sodium 140, potassium 4.7, chloride 119, CO2 22, BUN 60, creatinine 1.8, glucose 32 4. White blood cell count 19.6, hematocrit 42.9, platelet count 251. ASSESSMENT: 1. End-stage chronic obstructive pulmonary disease. 2. Acute on chronic respiratory failure requiring mechanical ventilation. 3. Chronic kidney disease. 4. Diabetes mellitus. PLAN: The patient is proceeding with a feeding tube placement today. I think there is a very good c robert, he may end up intubated after surgery. We are continuing to give him antibiotics, steroids an judd candelarios.
[2017-01-01] MEDS: Dextrose 5 %-0.45 % NaCl 1,000 ML IV SCH ×2 (11:13→23:16)
--- NOTE | 2017-01-01 11:27 | PDOC.PN ---
- Subjective Encounter Start Date: 01/01/17 Encounter Start Time: 07:30 pt is very weak, overall OK, but sick, still confused - Objective Resuscitation Status: Resuscitation Status DNR:Do Not Resuscitate MAR Reviewed: Yes Vital Signs & Weight: Vital Signs (12 hours) Temp Pulse Resp Pulse Ox 01/01/17 11:12 81 22 H 93 L 01/01/17 07:52 98.7 F 74 23 H 100 01/01/17 07:47 94 L 01/01/17 07:45 74 23 H 94 L 01/01/17 07:00 98.7 F 01/01/17 03:00 98.4 F 01/01/17 02:43 76 18 100 Weight Admit Weight 242 lb Weight 247 lb 9.266 oz Most Recent Monitor Data Heart Rate from ECG 80 NIBP 163/77 NIBP BP-Mean 89 Respiration from ECG 21 SpO2 93 I&O: 12/31/16 01/01/17 01/02/17 06:59 06:59 06:59 Intake Total 1836 1920 Output Total 2322 1214 131 [facility] -080 -218 -889 Result Diagrams: 01/01/17 03:50 01/01/17 03:50 Additional Labs: Accuchecks 01/01/17 12/31/16 12/31/16 11:08 21:03 16:33 POC Glucose 194 H 275 H 297 H 12/31/16 11:14 POC Glucose 274 H Radiology Reviewed by me: Yes EKG Reviewed by me: Yes (afib) Phys Exam - Physical Examination Constitutional: NAD HEENT: PERRLA, sclera anicteric dry MM Neck: no JVD, supple bilateral coarse sound, reduced air entry Cardiovascular: no significant murmur, irregular Gastrointestinal: soft, positive bowel sounds obesity+ Musculoskeletal: pulses present, edema present Neurological: non-focal Lymphatic: no nodes Psychiatric: normal affect Skin: no rash, normal turgor Dx/Plan (1) Acute metabolic encephalopathy Code(s): G93.41 - METABOLIC ENCEPHALOPATHY Status: Acute Comment: CO2 narcosis (2) Acute on chronic respiratory failure with hypoxia and hypercapnia Code(s): J96.21 - ACUTE AND CHRONIC RESPIRATORY FAILURE WITH HYPOXIA; J96.22 - ACUTE AND CHRONIC RESPIRATORY FAILURE WITH HYPERCAPNIA Status: Acute Comment : extubated (3) Acute worsening of stage 3 chronic kidney disease Code(s): N18.3 - CHRONIC KIDNEY DISEASE, STAGE 3 (MODERATE) Status: Acute (4) COPD exacerbation Code(s): J44.1 - CHRONIC OBSTRUCTIVE PULMONARY DISEASE W (ACUTE) EXACERBATION Status: Acute (5) Hyponatremia Code(s): E87.1 - HYPO-OSMOLALITY AND HYPONATREMIA Status: Resolved (6) Chronic anticoagulation Code(s): Z79.01 - [facility] (CURRENT) USE OF ANTICOAGULANTS Status: Chronic (7) Chronic diastolic (congestive) heart failure Code(s): I50.32 - CHRONIC DIASTOLIC (CONGESTIVE) HEART FAILURE Status: Chronic (8) Diabetes mellitus, insulin dependent (IDDM), controlled Code(s): E11.9 - TYPE 2 DIABETES MELLITUS WITHOUT COMPLICATIONS; Z79.4 - [facility] (CURRENT) USE OF INSULIN Status: Chronic (9) Diabetic neuropathy Code(s): E11.40 - TYPE 2 DIABETES MELLITUS WITH DIABETIC NEUROPATHY, UNSP Status: Chronic (10) Dyslipidemia Code(s): E78.5 - HYPERLIPIDEMIA, UNSPECIFIED Status: Chronic (11) GERD (gastroesophageal reflux disease) Code(s): K21.9 - GASTRO-ESOPHAGEAL REFLUX DISEASE WITHOUT ESOPHAGITIS Status: Chronic (12) Gout Code(s): M10.9 - GOUT, UNSPECIFIED Status: Chronic (13) HTN (hypertension) Code(s): I10 - ESSENTIAL (PRIMARY) HYPERTENSION Status: Chronic Qualifiers: Hypertension type: essential hypertension Qualified Code(s): I10 - Essential (primary) hypertension (14) Obesity (BMI 30.0-34.9) Code(s): E66.9 - OBESITY, UNSPECIFIED Status: Chronic (15) Paroxysmal atrial fibrillation Code(s): I48.0 - PAROXYSMAL ATRIAL FIBRILLATION Status: Chronic (16) Physical deconditioning Code(s): R53.81 - OTHER MALAISE Status: Acute (17) Oropharyngeal dysphagia Code(s): R13.12 - DYSPHAGIA, OROPHARYNGEAL PHASE Status: Acute - Plan cont current plan of care, plan discussed w/ family, alvarado catheter, continue antibiotics, PT/OT, social media marketing analyst, speech therapy, respiratory therapy * today pt is plan for peg tube * family ok with suspending DNR during chris procedure period. but after that they wanted to continue DNR * prognosis is very poor * medication reviewed as below * symptomatic treatment * will need placement if survive * discussed with family bedside Review of Systems - Review of Systems Other: not reliable due to confusion - Medications/Allergies Allergies/Adverse Reactions: Allergies Allergy/AdvReac Type Severity Reaction Status Date / Time exenatide [From Byetta] Allergy Severe Verified 11/17/12 04:50 sitagliptin phosphate Allergy Severe Verified 11/17/12 04:50 [From Januvia] clindamycin Allergy Intermediate Swollen Verified 11/17/12 04:48 Lips erythromycin base Allergy Intermediate Swollen Verified 11/17/12 04:48 [Erythromycin Base] Lips hydrocodone Allergy Intermediate Verified 11/17/12 04:49 Sulfa (Sulfonamide Allergy Intermediate Swollen Verified 11/17/12 04:49 Antibiotics) Lips phenol Allergy Verified 11/17/12 04:50 propoxyphene napsylate Allergy Verified 11/17/12 04:50 [From Darvocet-N 100] Medications: Current Medications Acetaminophen (Tylenol) 650 mg PO Q4H PRN PRN Reason: Headache/Fever or Pain Al Hydroxide/Mg Hydroxide (Maalox) 30 ml PO Q6H PRN PRN Reason: Heartburn or Indigestion Albuterol/Ipratropium (Duoneb) 3 ml NEB [id number] [facility] Last Admin: 01/01/17 11:12 Dose: 3 ml Allopurinol (Zyloprim) 50 mg PO DAILY [facility] Last Admin: 01/01/17 09:00 Dose: Not Given Artificial Tears (Tears Naturale) 0 drop EA EYE PRN PRN PRN Reason: Dry Eyes Benzonatate (Tessalon) 100 mg PO Q4H PRN PRN Reason: Cough Bisacodyl (Dulcolax) 10 mg [place] DAILYPRN PRN PRN Reason: Constipation Last Admin: 12/29/16 14:51 Dose: 10 mg Calcitriol (Rocaltrol) 0.25 mcg PO DAILY [facility] Last Admin: 01/01/17 09:00 Dose: Not Given Clonidine (Catapres) 0.1 mg PO Q4H PRN PRN Reason: Systolic BP > 180 Dextrose/Water (Dextrose 50%) 25 gm SLOW IVP PRN PRN PRN Reason: Hypoglycemia Enoxaparin Sodium (Lovenox) 100 mg SC 0900,2100 [facility] Last Admin: 01/01/17 09:00 Dose: Not Given Glucagon (Glucagon) 1 mg IM PRN PRN PRN Reason: Hypoglycemia Guaifenesin (Mucinex) 1,200 mg PO Q12HR [facility] Last Admin: 01/01/17 09:00 Dose: Not Given Hydralazine HCl (Apresoline) 10 mg SLOW IVP Q4H PRN PRN Reason: Systolic BP > 180 Dextrose/Water (D5w) 1,000 mls @ 0 mls/hr IV .Q0M PRN; As Directed PRN Reason: Hypoglycemia Insulin Detemir 50 units/ (Miscellaneous Medication) 0.5 mls @ 0 mls/hr SC HS [facility] Last Admin: 12/31/16 21:04 Dose: 0.5 mls Cefepime HCl 1 gm/ Sterile (Water) 10 mls @ 120 mls/hr IVPB Q12HR [facility] Last Admin: 01/01/17 09:16 Dose: 10 mls Insulin Detemir 10 units/ (Miscellaneous Medication) 0.1 mls @ 0 mls/hr SC QAM [facility] PRN Reason: As Directed Last Admin: 01/01/17 11:04 Dose: 0.1 mls Diltiazem HCl 125 mg/Miscellaneous Medication 1 each/ Sodium Chloride 125 mls @ 0 mls/hr SLOW IVP INF ARELY; As Directed PRN Reason: Protocol Last Admin: 12/31/16 23:02 Dose: 125 mls Dextrose/Sodium Chloride (D5 1/2 Ns) 1,000 mls @ 75 mls/hr IV .[id number] [facility] Last Admin: 01/01/17 11:13 Dose: 1,000 mls Insulin Human Lispro (Humalog) 0 units SC .AGGRESSIVE SLIDING PRN PRN Reason: Aggressive Correctional Scale Last Admin: 01/01/17 05:42 Dose: 11 unit Insulin Human Lispro (Humalog) 0 units SC .BEDTIME SLIDING SC PRN PRN Reason: Bedtime Correctional Scale Last Admin: 12/31/16 21:06 Dose: 3 unit Laxative/Stool Softener (Laxative Of Choice) 1 each PO DAILY PRN PRN Reason: Constipation Loperamide HCl (Imodium) 2 mg PO PRN PRN PRN Reason: Diarrhea/Loose Stools Magnesium Hydroxide (Milk Of Magnesium) 30 ml PO DAILYPRN PRN PRN Reason: Constipation Methylprednisolone Sodium Succinate (Solu-Medrol) 40 mg IVP Q8HR [facility] Last Admin: 01/01/17 05:41 Dose: 40 mg Mineral Oil/White Petrolatum (Eucerin Cream) 0 gm TOP BIDPRN PRN PRN Reason: Dry Skin Miscellaneous Medication (Pharmacy To Dose) 0 each PO DAILY [facility] Mometasone Furoate/Formoterol Fumar (Dulera 200 Mcg/5 Mcg Inhaler) 2 puff INH BID-RT [facility] Last Admin: 12/31/16 19:02 Dose: 2 puff Nebivolol (Bystolic) 5 mg PO HS [facility] Last Admin: 12/31/16 21:09 Dose: Not Given Ondansetron HCl (Zofran Odt) 4 mg PO Q6H PRN PRN Reason: Nausea/Vomiting Ondansetron HCl (Zofran) 4 mg IVP Q6H PRN PRN Reason: Nausea/Vomiting Pantoprazole Sodium (Protonix) 40 mg PO DAILY [facility] Last Admin: 01/01/17 09:00 Dose: Not Given Phenylephrine HCl (Zach-Synephrine 0.5% Nasal [place]) 0 ml EA NARE PRN PRN PRN Reason: FOR NOSE Senna (Senokot) 2 tab PO HSPRN PRN PRN Reason: Constipation Sodium Chloride ([place] Nasal [place] 0.65%) 0 ml EA NARE QIDPRN PRN PRN Reason: Nasal Congestion Last Admin: 12/24/16 20:33 Dose: 1 each Sodium Chloride (Flush - Normal Saline) 10 ml IVF Q12HR [facility] Last Admin: 01/01/17 09:16 Dose: 10 ml Sodium Chloride (Flush - Normal Saline) 10 ml IVF PRN PRN PRN Reason: Saline Flush Last Admin: 12/28/16 05:10 Dose: 10 ml Warfarin Sodium (Coumadin) 2 mg PO 1700 [facility]
[2017-01-01] MEDS: Mometasone/Formoterol 120 PUFF INHALER INH SCH ×2 (11:31→19:38)
--- NOTE | 2017-01-01 15:19 | OP ---
DATE OF PROCEDURE: 01/01/2017 GI ENDOSCOPY NOTE SURGEON: Chandler Song M.D. [employer]ENTAL DISPATCHER SURGEON: None. PROCEDURE: Esophagogastroduodenoscopy with PEG tube placement. INDICATIONS: 1. Severe deconditioning. 2. Malnutrition. 3. Severe chronic obstructive pulmonary disease. MEDICATIONS: 1. See anesthesia record. 2. The patient is getting cefepime 1 gram IV q.12 hours with last dose within the past hour and this services as procedural prophylaxis. FINDINGS: After discussion of the risks, benefits and alternatives of the procedure once more with t he family and informed consent was obtained and witnessed. Pre-endoscopic cardiopulmonary examinatio n was satisfactory. Timeout was performed before sedation was achieved. Sedation was achieved with anesthesia assistance in the endoscopy unit. The patient was placed in the supine position. A Penta x adult upper endoscope was placed into the oropharynx and passed through the cricopharyngeus under d irect visualization. There is some old dried blood in the back of the oropharynx. The esophageal mu cosa appears normal throughout. The endoscope was advanced into the stomach. Forward and retroflexe d views of the entire gastric mucosa were obtained. In the gastric fundus, there is some well demarc ated area of severe erythema and several shallow serpiginous ulcerations and erosions consistent with ischemic gastritis. The gastric body and antrum appeared normal. The endoscope was passed through the pylorus and into the first and second portions of the duodenum, which also appeared normal. The endoscope was withdrawn back into the stomach. Using 1:1 pressure and transillumination methods, a s uitable site for PEG placement was located in the left upper quadrant. The site was prepped and drap ed in sterile fashion. It was then anesthetized with subcutaneous lidocaine. A 1 cm vertical incisi on was made. The introducer needle and catheter were then introduced transcutaneously into the gastr ic lumen. A wire was passed through the catheter and grasped with a snare and then the wire was marilia vaishnavi outside the patient's mouth. A 20-Dominican traction PEG tube was affixed to the wire and the tube was pulled into place in the usual fashion without difficulty. The endoscope was then reinserted to examine the tube from the inside of the gastric lumen and it appeared in good position. The external bumper clamp and ports were then affixed to the tube. The external bumper was placed at 2 cm. The endoscope was withdrawn and the procedure was complete. The patient tolerated the procedure well. T here were no immediate post-procedure complications. IMPRESSION: 1. Successful placement of 20-Dominican traction PEG tube to the left upper quadrant with external bump er at 2 cm. 2. Severe ischemic appearing gastritis in the gastric fundus. RECOMMENDATIONS: 1. Continue PPI. 2. May use the tube for medications right away. 3. May use the PEG tube for feedings in 4 hours. 4. I will plan to come by tomorrow to check on the PEG tube and likely loosen the external bumper.
--- NOTE | 2017-01-01 16:07 | PDOC.CTH ---
Cardiology Progress Note - Subjective No new issues. He had his PEG tube placed earlier today. - Objective Vital Signs Temp Pulse Resp Pulse Ox 01/01/17 15:42 77 19 100 01/01/17 12:00 98.0 F 01/01/17 11:12 81 22 H 93 L 01/01/17 07:52 98.7 F 74 23 H 100 01/01/17 07:47 94 L 01/01/17 07:45 74 23 H 94 L 01/01/17 07:00 98.7 F Admit Weight 242 lb Weight 247 lb 9.266 oz 12/31/16 01/01/17 01/02/17 06:59 06:59 06:59 Intake Total 1836 1920 Output Total 8545 8221 850 Balance -541 -669 -806 - Physical Examination General/Neuro: other: (somnolent, minimally responsive. ) Neck: no JVD present Lungs: unlabored respirations, other: (Coarse breath sounds. ) Heart: other: (Irreg) Abdomen: NT/ND Extremities: + edema B (1+) - Telemetry Telemetry Rhythm: Afib HR 70's. - Labs Result Diagrams: 01/01/17 03:50 01/01/17 03:50 Troponin/CKMB CK-MB (CK-2) 10.9 ng/mL (0-6.6) H* 12/23/16 22:51 Troponin I Less than 0.010 ng/mL (< 0.028) 12/23/16 22:51 - Assessment/Plan 1. COPD 2. Afib RVR PLAN - Continue rate control. - Will restart Warfarin today. Will check an INR and bridge his coumadin with lovenox if needed.
[2017-01-01] MEDS ORDERED: Warfarin Sodium 2 MG TAB PO SCH (17:00)
[2017-01-01] MEDS ORDERED: Warfarin Sodium 1 MG TAB PO SCH (17:00)
[2017-01-01] MEDS ORDERED: Lidocaine 1% PF 5 ML VIAL ONE (17:12)
[2017-01-01] MEDS: Insulin Detemir 100 UNITS/ML 50 UNITS in Pre-Filled Syringe SC SCH (21:37)
[2017-01-01] MEDS: Nebivolol HCl 5 MG TAB PO SCH (21:38)
[2017-01-01] MEDS: Diltiazem HCl 125 MG, Admixture Fee 1 EACH in Sodium Chloride 0.9% 100 ML SLOW IVP SCH (23:16)
[2017-01-02] MEDS: HumaLOG 300 UNITS/3 ML VIAL SC PRN ×4 (04:52→22:01)
[2017-01-02 05:02] LABS: Prothrombin Time 33.1 SEC (12.0-14.7)
[2017-01-02 05:20] LABS: Anion Gap 8 mmol/L (10-20); BUN (Urea Nitrogen) 62 mg/dL (8.4-25.7); Calc. Creatinine Clearance 47 mL/min (70-130); Carbon Dioxide 28 mmol/L (23-31); Chloride 121 mmol/L (98-107); Estimated GFR-MDRD 31
[2017-01-02 05:22] LABS: Band 3 % (5-11); Hematocrit 41.7 % (42.0-52.0); Mean Platelet Volume 7.3 fL (7.4-10.4); Neutrophil 94 % (42-75); Red Blood Cell (RBC) Count 4.33 mill/uL (4.70-6.10); White Blood Cell (WBC) Count 21.3 thou/uL (4.8-10.8)
[2017-01-02] MEDS: Allopurinol 100 MG TAB PO SCH (08:51)
[2017-01-02] MEDS: Calcitriol 0.25 MCG CAP PO SCH ×2 (08:51→08:57)
[2017-01-02] MEDS: guaiFENesin ER 600 MG TAB PO SCH ×2 (08:51→19:57)
[2017-01-02] MEDS: Scopolamine 1.5 mg/72 hour Patch TD SCH (08:51)
[2017-01-02] MEDS: Dextrose 5% in Water 1,000 ML IV SCH ×2 (08:51→21:36)
[2017-01-02] MEDS: Pantoprazole 40 MG GRANULES PACKET PER TUBE SCH (08:52)
[2017-01-02] MEDS: Mometasone/Formoterol 120 PUFF INHALER INH SCH ×2 (09:02→18:19)
[2017-01-02] MEDS: CEFEPIME IVPB SCH ×2 (09:04→21:36)
[2017-01-02] MEDS: STERILE WATER IVPB SCH ×2 (09:04→21:36)
[2017-01-02] MEDS: Insulin Detemir 100 UNITS/ML 10 UNITS in Pre-Filled Syringe 1 EACH SC SCH (09:04)
--- NOTE | 2017-01-02 09:59 | PRG ---
DATE OF SERVICE: 01/02/2017 The patient had a PEG tube placed yesterday. He remains in the CCU. He is unable to clear secretion s. He is unable verbalize very much. PHYSICAL EXAMINATION: VITAL SIGNS: Temperature is 98.2, pulse 76, blood pressure 170/70, total intake for the last 24 hour s 3120, output 2215. HEENT: Unremarkable except for dry oropharynx. NECK: No JVD. LUNGS: Coarse breath sounds. CARDIOVASCULAR: S1, S2 regular. ABDOMEN: Soft, nontender. PEG tube noted. EXTREMITIES: Edematous. LABORATORY DATA: INR is 3.1. Sodium 152, potassium 5, chloride 121, CO2 28, BUN 62, creatinine 2.0, glucose 316. White blood cell count 21.3, hemoglobin 13, hematocrit 41.7, platelet count 217. ASSESSMENT: 1. 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 2. Oropharyngeal dysphagia. 3. Diabetes mellitus with uncontrolled blood sugars. 4. Chronic kidney disease. 5. Hypernatremia. PLAN: 1. Add scopolamine patch. 2. Continue antibiotics. 3. Hold Coumadin for 1 day since INR is greater than 3. 4. Change IV fluids to D5W and discontinue once enteral tube feeds start.
--- NOTE | 2017-01-02 12:16 | PDOC.PN ---
- Subjective Encounter Start Date: 01/02/17 Encounter Start Time: 08:00 peg tube placed and pt is tolerating tube feeding, still very weak, daughter bedside - Objective Resuscitation Status: Resuscitation Status DNR:Do Not Resuscitate MAR Reviewed: Yes Vital Signs & Weight: Vital Signs (12 hours) Temp Pulse Resp Pulse Ox 01/02/17 12:01 71 18 98 01/02/17 09:03 100 01/02/17 08:58 77 19 100 01/02/17 08:00 99.0 F 74 20 100 01/02/17 04:00 98.2 F 01/02/17 02:38 77 19 100 Weight Admit Weight 242 lb Weight 3.859 oz Most Recent Monitor Data Heart Rate from ECG 76 NIBP 170/70 NIBP BP-Mean 102 Respiration from ECG 19 SpO2 100 I&O: 01/01/17 01/02/17 01/03/17 06:59 06:59 06:59 Intake Total 1920 3120.6 Output Total 2540 2215 445 Balance -620 905.6 -445 Result Diagrams: 01/02/17 04:40 01/02/17 04:40 Additional Labs: Accuchecks 01/02/17 01/02/17 01/01/17 09:07 04:41 21:33 POC Glucose 337 H 316 H 304 H 01/01/17 16:19 POC Glucose 227 H EKG Reviewed by me: Yes (afib) Phys Exam - Physical Examination Constitutional: NAD HEENT: PERRLA, moist MMs, sclera anicteric Neck: no JVD, supple gurgling sound in throat coasre sound Cardiovascular: no significant murmur, irregular Gastrointestinal: soft, non-tender, no distention, positive bowel sounds PEG+ Musculoskeletal: pulses present, edema present Neurological: non-focal, normal sensation Lymphatic: no nodes Psychiatric: normal affect Skin: no rash, normal turgor Dx/Plan (1) Acute metabolic encephalopathy Code(s): G93.41 - METABOLIC ENCEPHALOPATHY Status: Acute Comment: CO2 narcosis (2) Acute on chronic respiratory failure with hypoxia and hypercapnia Code(s): J96.21 - ACUTE AND CHRONIC RESPIRATORY FAILURE WITH HYPOXIA; J96.22 - ACUTE AND CHRONIC RESPIRATORY FAILURE WITH HYPERCAPNIA Status: Acute Comment : extubated (3) Acute worsening of stage 3 chronic kidney disease Code(s): N18.3 - CHRONIC KIDNEY DISEASE, STAGE 3 (MODERATE) Status: Acute (4) COPD exacerbation Code(s): J44.1 - CHRONIC OBSTRUCTIVE PULMONARY DISEASE W (ACUTE) EXACERBATION Status: Acute (5) Hyponatremia Code(s): E87.1 - HYPO-OSMOLALITY AND HYPONATREMIA Status: Resolved (6) Chronic anticoagulation Code(s): Z79.01 - [facility] (CURRENT) USE OF ANTICOAGULANTS Status: Chronic (7) Chronic diastolic (congestive) heart failure Code(s): I50.32 - CHRONIC DIASTOLIC (CONGESTIVE) HEART FAILURE Status: Chronic (8) Diabetes mellitus, insulin dependent (IDDM), controlled Code(s): E11.9 - TYPE 2 DIABETES MELLITUS WITHOUT COMPLICATIONS; Z79.4 - [facility] (CURRENT) USE OF INSULIN Status: Chronic (9) Diabetic neuropathy Code(s): E11.40 - TYPE 2 DIABETES MELLITUS WITH DIABETIC NEUROPATHY, UNSP Status: Chronic (10) Dyslipidemia Code(s): E78.5 - HYPERLIPIDEMIA, UNSPECIFIED Status: Chronic (11) GERD (gastroesophageal reflux disease) Code(s): K21.9 - GASTRO-ESOPHAGEAL REFLUX DISEASE WITHOUT ESOPHAGITIS Status: Chronic (12) Gout Code(s): M10.9 - GOUT, UNSPECIFIED Status: Chronic (13) HTN (hypertension) Code(s): I10 - ESSENTIAL (PRIMARY) HYPERTENSION Status: Chronic Qualifiers: Hypertension type: essential hypertension Qualified Code(s): I10 - Essential (primary) hypertension (14) Obesity (BMI 30.0-34.9) Code(s): E66.9 - OBESITY, UNSPECIFIED Status: Chronic (15) Paroxysmal atrial fibrillation Code(s): I48.0 - PAROXYSMAL ATRIAL FIBRILLATION Status: Chronic (16) Physical deconditioning Code(s): R53.81 - OTHER MALAISE Status: Acute (17) Oropharyngeal dysphagia Code(s): R13.12 - DYSPHAGIA, OROPHARYNGEAL PHASE Status: Acute (18) Hypernatremia Code(s): E87.0 - HYPEROSMOLALITY AND HYPERNATREMIA Status: Acute - Plan cont current plan of care, plan discussed w/ family, alvarado catheter, continue antibiotics, PT/OT, social media marketing specialist, speech therapy, respiratory therapy * hold warfarin for high INR * increase levemir * solumedrol dose reduced * scopolamine added * increase free water intake for hypernatremia * still condition does not look good to transfer * medication reviewed as below * symptomatic treatment. Review of Systems - Review of Systems Other: not reliable today as pt is sleepy this morning - Medications/Allergies Allergies/Adverse Reactions: Allergies Allergy/AdvReac Type Severity Reaction Status Date / Time exenatide [From [place]] Allergy Severe Verified 11/17/12 04:50 sitagliptin phosphate Allergy Severe Verified 11/17/12 04:50 [From Januvia] clindamycin Allergy Intermediate Swollen Verified 11/17/12 04:48 Lips erythromycin base Allergy Intermediate Swollen Verified 11/17/12 04:48 [Erythromycin Base] Lips hydrocodone Allergy Intermediate Verified 11/17/12 04:49 Sulfa (Sulfonamide Allergy Intermediate Swollen Verified 11/17/12 04:49 Antibiotics) Lips phenol Allergy Verified 11/17/12 04:50 propoxyphene napsylate Allergy Verified 11/17/12 04:50 [From Darvocet-N 100] Medications: Current Medications Acetaminophen (Tylenol) 650 mg PO Q4H PRN PRN Reason: Headache/Fever or Pain Al Hydroxide/Mg Hydroxide (Maalox) 30 ml PO Q6H PRN PRN Reason: Heartburn or Indigestion Albuterol/Ipratropium (Duoneb) 3 ml NEB [id number] [facility] Last Admin: 01/02/17 12:01 Dose: 3 ml Allopurinol (Zyloprim) 50 mg PO DAILY [facility] Last Admin: 01/02/17 08:51 Dose: 50 mg Artificial Tears (Tears Naturale) 0 drop EA EYE PRN PRN PRN Reason: Dry Eyes Benzonatate (Tessalon) 100 mg PO Q4H PRN PRN Reason: Cough Bisacodyl (Dulcolax) 10 mg [place] DAILYPRN PRN PRN Reason: Constipation Last Admin: 12/29/16 14:51 Dose: 10 mg Calcitriol (Rocaltrol) 0.25 mcg PO DAILY [facility] Last Admin: 01/02/17 08:57 Dose: Not Given Clonidine (Catapres) 0.1 mg PO Q4H PRN PRN Reason: Systolic BP > 180 Dextrose/Water (Dextrose 50%) 25 gm SLOW IVP PRN PRN PRN Reason: Hypoglycemia Glucagon (Glucagon) 1 mg IM PRN PRN PRN Reason: Hypoglycemia Guaifenesin (Mucinex) 1,200 mg PO Q12HR [facility] Last Admin: 01/02/17 08:51 Dose: 1,200 mg Hydralazine HCl (Apresoline) 10 mg SLOW IVP Q4H PRN PRN Reason: Systolic BP > 180 Dextrose/Water (D5w) 1,000 mls @ 0 mls/hr IV .Q0M PRN; As Directed PRN Reason: Hypoglycemia Insulin Detemir 50 units/ (Miscellaneous Medication) 0.5 mls @ 0 mls/hr SC HS [facility] Last Admin: 01/01/17 21:37 Dose: 0.5 mls Cefepime HCl 1 gm/ Sterile (Water) 10 mls @ 120 mls/hr IVPB Q12HR [facility] Last Admin: 01/02/17 09:04 Dose: 10 mls Insulin Detemir 10 units/ (Miscellaneous Medication) 0.1 mls @ 0 mls/hr SC [facility] PRN Reason: As Directed Last Admin: 01/02/17 09:04 Dose: 0.1 mls Diltiazem HCl 125 mg/Miscellaneous Medication 1 each/ Sodium Chloride 125 mls @ 0 mls/hr SLOW IVP INF ARELY; As Directed PRN Reason: Protocol Last Admin: 01/01/17 23:16 Dose: 125 mls Dextrose/Water (D5w) 1,000 mls @ 75 mls/hr IV .[id number] [facility] Last Admin: 01/02/17 08:51 Dose: 1,000 mls Insulin Human Lispro (Humalog) 0 units SC .AGGRESSIVE SLIDING PRN PRN Reason: Aggressive Correctional Scale Last Admin: 01/02/17 09:07 Dose: 11 unit Insulin Human Lispro (Humalog) 0 units SC .BEDTIME SLIDING SC PRN PRN Reason: Bedtime Correctional Scale Last Admin: 12/31/16 21:06 Dose: 3 unit Laxative/Stool Softener (Laxative Of Choice) 1 each PO DAILY PRN PRN Reason: Constipation Loperamide HCl (Imodium) 2 mg PO PRN PRN PRN Reason: Diarrhea/Loose Stools Magnesium Hydroxide (Milk Of Magnesium) 30 ml PO DAILYPRN PRN PRN Reason: Constipation Methylprednisolone Sodium Succinate (Solu-Medrol) 20 mg IVP Q8HR [facility] Mineral Oil/White Petrolatum (Eucerin Cream) 0 gm TOP BIDPRN PRN PRN Reason: Dry Skin Miscellaneous Medication (Pharmacy To Dose) 0 each PO DAILY [facility] Last Admin: 01/02/17 09:02 Dose: Not Given Mometasone Furoate/Formoterol Fumar (Dulera 200 Mcg/5 Mcg Inhaler) 2 puff INH BID-RT [facility] Last Admin: 01/02/17 09:02 Dose: Not Given Nebivolol (Bystolic) 5 mg PO HS [facility] Last Admin: 01/01/17 21:38 Dose: 5 mg Ondansetron HCl (Zofran Odt) 4 mg PO Q6H PRN PRN Reason: Nausea/Vomiting Ondansetron HCl (Zofran) 4 mg IVP Q6H PRN PRN Reason: Nausea/Vomiting Pantoprazole Sodium (Protonix) 40 mg PER TUBE DAILY [facility] Last Admin: 01/02/17 08:52 Dose: 40 mg Phenylephrine HCl (Zach-Synephrine 0.5% Nasal [place]) 0 ml EA NARE PRN PRN PRN Reason: FOR NOSE Scopolamine (Transderm Scop) 1.5 mg TD Q3D [facility] Last Admin: 01/02/17 08:51 Dose: 1.5 mg Senna (Senokot) 2 tab PO HSPRN PRN PRN Reason: Constipation Sodium Chloride ([place] Nasal [place] 0.65%) 0 ml EA NARE QIDPRN PRN PRN Reason: Nasal Congestion Last Admin: 12/24/16 20:33 Dose: 1 each Sodium Chloride (Flush - Normal Saline) 10 ml IVF Q12HR [facility] Last Admin: 01/02/17 09:04 Dose: 10 ml Sodium Chloride (Flush - Normal Saline) 10 ml IVF PRN PRN PRN Reason: Saline Flush Last Admin: 12/28/16 05:10 Dose: 10 ml Warfarin Sodium (Coumadin) 1 mg PO 1700 [facility] Last Admin: 01/01/17 16:23 Dose: 1 mg
--- NOTE | 2017-01-02 14:34 | PDOC.CTH ---
Cardiology Progress Note - Subjective No new issues. - Objective Vital Signs Temp Pulse Resp Pulse Ox 01/02/17 12:01 71 18 98 01/02/17 12:00 98.0 F 01/02/17 09:03 100 01/02/17 08:58 77 19 100 01/02/17 08:00 99.0 F 74 20 100 01/02/17 04:00 98.2 F 01/02/17 02:38 77 19 100 Admit Weight 242 lb Weight 3.859 oz 01/01/17 01/02/17 01/03/17 06:59 06:59 06:59 Intake Total 1920 3120.6 Output Total 2540 2215 755 Balance -620 905.6 -755 - Physical Examination General/Neuro: NAD Neck: no JVD present Lungs: CTA (Coarse) Heart: other: (irreg) Abdomen: NT/ND Extremities: + edema B (trace) - Telemetry Telemetry Rhythm: Afib HR 80's. - Labs Result Diagrams: 01/02/17 04:40 01/02/17 04:40 Troponin/CKMB CK-MB (CK-2) 10.9 ng/mL (0-6.6) H* 12/23/16 22:51 Troponin I Less than 0.010 ng/mL (< 0.028) 12/23/16 22:51 - Assessment/Plan 1. COPD 2. Afib RVR PLAN - Continue rate control. - Warfarin for stroke prophylaxis. - Will switch to PO diltiazem.
--- NOTE | 2017-01-02 18:48 | PRG ---
DATE OF SERVICE: 01/02/2017 SUBJECTIVE: Mr. Joyner is a 76-year-old white male, being followed by the renal service for his chronic renal failure. Renal function has been stopped the last few days. Currently, creatinine is slightly higher today at 2.0, which is actually more towards his baseline. In the interim, he has a PEG tube placed due to issues of aspiration pneumonia. No other complaints today. PHYSICAL EXAMINATION: VITAL SIGNS: Blood pressure is 165/67, heart rate 70, respiratory rate 19, pulse ox 100%. GENERAL: Noted to be awake, lethargic, not in distress. SKIN: Adequate turgor. HEENT: He has pinkish conjunctivae, anicteric sclerae. NECK: No neck mass, no carotid bruits, no JVD. CHEST: No deformities. LUNGS: Decreased breath sounds. HEART: Normal sinus rhythm. No murmur, no gallops, no rubs. ABDOMEN: Globular, soft, nontender, no masses. Positive for PEG tube. EXTREMITIES: No edema, no deformities. NEUROLOGIC: The patient is arousable, lethargic. MEDICATIONS: 01/02/2017 was reviewed. LABORATORY DATA: 01/02/2017: White count 21.3, hemoglobin 13.2. Sodium 152, potassium 5, chloride 121, carbon dioxide 28, BUN 62, creatinine 2.06, glucose 401, calcium 9.0. ASSESSMENT AND PLAN: 1. Hypernatremia, consider free water 250 mL q.6 hours via PEG tube. 2. Chronic renal failure, relatively stable renal function. Creatinine 2.06 is near baseline. We will continue current management, continue gentle volume repletion. No indication for any dialytic intervention. 3. Aspiration pneumonia -- currently on a PEG tube. 4. Pneumonia, on IV antibiotics. Overall, prognosis remains guarded. MTDD
[2017-01-02] MEDS: Nebivolol HCl 5 MG TAB PO SCH (19:57)
[2017-01-02] MEDS: Insulin Detemir 100 UNITS/ML 60 UNITS in Pre-Filled Syringe 1 EACH SC SCH (20:01)
[2017-01-02] MEDS ORDERED: Diltiazem HCl SR 60 mg Capsule PO SCH (21:00)
[2017-01-03 05:51] LABS: Anion Gap 9 mmol/L (10-20); BUN (Urea Nitrogen) 60 mg/dL (8.4-25.7); Calc. Creatinine Clearance 44 mL/min (70-130); Calcium 8.8 mg/dL (7.8-10.44); Carbon Dioxide 28 mmol/L (23-31); Chloride 118 mmol/L (98-107); Estimated GFR-MDRD 31
[2017-01-03 05:57] LABS: Band 9 % (5-11); Mean Platelet Volume 7.7 fL (7.4-10.4); Neutrophil 87 % (42-75); Red Blood Cell (RBC) Count 4.11 mill/uL (4.70-6.10); White Blood Cell (WBC) Count 24.2 thou/uL (4.8-10.8)
[2017-01-03] MEDS: HumaLOG 300 UNITS/3 ML VIAL SC PRN ×2 (05:57→10:38)
[2017-01-03] MEDS: Mometasone/Formoterol 120 PUFF INHALER INH SCH ×2 (06:07→18:36)
[2017-01-03] MEDS: Calcitriol 0.25 MCG CAP PO SCH (08:17)
[2017-01-03] MEDS: guaiFENesin ER 600 MG TAB PO SCH ×2 (08:17→21:02)
[2017-01-03] MEDS: STERILE WATER IVPB SCH ×2 (08:18→21:03)
[2017-01-03] MEDS: Insulin Detemir 100 UNITS/ML 30 UNITS in Pre-Filled Syringe 1 EACH SC SCH (08:18)
[2017-01-03] MEDS: Allopurinol 100 MG TAB PO SCH (08:18)
[2017-01-03] MEDS: CEFEPIME IVPB SCH ×2 (08:18→21:03)
[2017-01-03] MEDS: Pantoprazole 40 MG GRANULES PACKET PER TUBE SCH (08:18)
--- NOTE | 2017-01-03 08:42 | PRG ---
DATE OF SERVICE: 01/03/2017 SUBJECTIVE: The patient remains in CCU. He is somnolent and very difficult to arouse. PHYSICAL EXAMINATION: VITAL SIGNS: On exam, his temperature is 99.2, pulse 75, blood pressure 154/68. A 24 hour intake 32 32, output 2045. HEENT: Unremarkable. NECK: No JVD. LUNGS: Clear, but distant. CARDIAC: S1 and S2 regular. ABDOMEN: PEG tube in place. EXTREMITIES: Generalized edema. LABORATORY DATA: White blood cell count 24.2, hematocrit 40, platelet count 173. INR 2.1. Sodium 1 50, potassium 5.1, chloride 118, CO2 28, BUN 60, creatinine 2.1, glucose 433. ASSESSMENT: 1. End-stage chronic obstructive pulmonary disease - not improving with aggressive care. 2. Oropharyngeal dysphagia requiring percutaneous endoscopic gastrostomy tube placement. 3. Diabetes mellitus with uncontrolled blood sugars. 4. Chronic kidney disease. 5. Hypernatremia. PLAN: I spoke with the very bluntly today. I do not feel that the patient is going to get bett er with anything that we do. I would recommend pursuing a more palliative care course. He is DNR. We will go ahead and move him out to the floor. Continue enteral tube feeds.
--- NOTE | 2017-01-03 09:02 | PRG ---
DATE OF SERVICE: 01/03/2017 SUBJECTIVE: No acute events noted. The patient has switched to p.o. Cardizem. He was noted to be m ildly hypernatremic today. He is currently on a PEG tube feeding. PHYSICAL EXAMINATION: VITAL SIGNS: Blood pressure is 164/68, heart rate 79, respiratory 70, pulse ox 100%. GENERAL: The patient is arousable, lethargic, decreased mentation. SKIN: Adequate turgor. HEENT: He has pinkish conjunctivae, anicteric sclerae. NECK: No neck mass, no carotid bruits, no JVD. CHEST: No deformities. LUNGS: Decreased breath sounds. HEART: Normal sinus rhythm. No murmur, no gallops, no rubs. ABDOMEN: Globular, soft, nontender. Positive for PEG tube. EXTREMITIES: No edema, no deformities. MEDICATIONS: 01/03/2017 - Reviewed. LABORATORY: 01/03/2017 - White count 24.2, hemoglobin 12.3, sodium 150, potassium 5.1, chloride 118, carbon dioxide 28, BUN 60, creatinine 2.08, glucose 433, calcium 8.8. ASSESSMENT AND PLAN: 1. Mild hypernatremia - consider free water 300 mL q.i.d. by a PEG tube. 2. Chronic renal failure/acute kidney injury, stable renal function. Creatinine noted at 2.08. The re is no indication for any dialytic intervention on this patient. 2. Aspiration pneumonia on IV antibiotics. I agree with current management.
--- NOTE | 2017-01-03 13:36 | PDOC.PN ---
- Subjective Encounter Start Date: 01/03/17 Encounter Start Time: 13:30 Subjective: f/u for AMS, dysphagia post PEG placement and likely aspiration pna. - Objective Resuscitation Status: Resuscitation Status DNR:Do Not Resuscitate MAR Reviewed: Yes Vital Signs & Weight: Vital Signs (12 hours) Temp Pulse Resp Pulse Ox 01/03/17 12:00 98.9 F 01/03/17 10:05 81 21 H 99 01/03/17 08:00 98.9 F 82 20 97 01/03/17 06:04 79 17 100 01/03/17 04:00 99.2 F 01/03/17 02:17 80 25 H 100 Weight Admit Weight 242 lb Weight 235 lb 10.786 oz Most Recent Monitor Data Heart Rate from ECG 75 NIBP 165/78 NIBP BP-Mean 98 Respiration from ECG 18 SpO2 99 I&O: 01/02/17 01/03/17 01/04/17 06:59 06:59 06:59 Intake Total 3120.6 3232 1005 Output Total 2215 2045 605 Balance 905.6 1187 400 Result Diagrams: 01/03/17 04:20 01/03/17 04:20 Additional Labs: Accuchecks 01/03/17 01/03/17 01/02/17 10:38 04:19 22:00 POC Glucose 333 H 349 H 359 H 01/02/17 16:53 POC Glucose 351 H Laboratory Tests 12/29/16 12/30/16 12/30/16 04:33 03:38 03:38 WBC 22.6 H 21.6 H INR 1.9 Sodium BUN Creatinine 12/31/16 12/31/16 01/01/17 04:02 04:02 03:50 WBC 18.9 H INR Sodium 146 H 148 H BUN 62 H 60 H Creatinine 1.66 H 1.83 H 01/01/17 01/01/17 01/02/17 03:50 10:58 04:40 WBC 19.6 H INR 3.0 3.1 Sodium BUN Creatinine 01/02/17 01/02/17 01/03/17 04:40 04:40 04:20 WBC 21.3 H INR 2.1 Sodium 152 H BUN 62 H Creatinine 2.06 H EKG Reviewed by me: Yes (Tele - A-fib in 90's) Phys Exam - Physical Examination moves arms randomly, minimal response to voice, name HEENT: oral pharynx no lesions Neck: no JVD, supple diminished bilat, coarse bilat Cardiovascular: irregular Gastrointestinal: soft, non-tender, no distention, positive bowel sounds Musculoskeletal: pulses present, edema present Skin: normal turgor, cap refill <2 seconds Dx/Plan (1) Acute metabolic encephalopathy Code(s): G93.41 - METABOLIC ENCEPHALOPATHY Status: Acute Comment: CO2 narcosis, multifactorial (2) Acute on chronic respiratory failure with hypoxia and hypercapnia Code(s): J96.21 - ACUTE AND CHRONIC RESPIRATORY FAILURE WITH HYPOXIA; J96.22 - ACUTE AND CHRONIC RESPIRATORY FAILURE WITH HYPERCAPNIA Status: Acute Comment : extubated (3) Acute worsening of stage 3 chronic kidney disease Code(s): N18.3 - CHRONIC KIDNEY DISEASE, STAGE 3 (MODERATE) Status: Acute (4) Hypernatremia Code(s): E87.0 - HYPEROSMOLALITY AND HYPERNATREMIA Status: Acute Comment: Free H2O replacement 300ml PT q6h (5) Oropharyngeal dysphagia Code(s): R13.12 - DYSPHAGIA, OROPHARYNGEAL PHASE Status: Acute Comment: s/p PEG placement 01/01/17 (6) Physical deconditioning Code(s): R53.81 - OTHER MALAISE Status: Chronic Comment: Severe (7) Chronic anticoagulation Code(s): Z79.01 - CUSTODIAL (CURRENT) USE OF ANTICOAGULANTS Status: Chronic Comment: INR 2.1 (8) Paroxysmal atrial fibrillation Code(s): I48.0 - PAROXYSMAL ATRIAL FIBRILLATION Status: Chronic (9) Hyperglycemia Code(s): R73.9 - HYPERGLYCEMIA, UNSPECIFIED Status: Acute Comment: Due to steroids (10) Aspiration pneumonia due to gastric secretions Code(s): J69.0 - PNEUMONITIS DUE TO INHALATION OF FOOD AND VOMIT Status: Acute Qualifiers: Laterality: bilateral Comment: Continue Cefepime 1gm IV q12h, NPO - Plan plan discussed w/ family, continue antibiotics, PT/OT, social science analyst, respiratory therapy, DVT proph w/SCDs Poor prognosis -: Pulmonary supportive measures -: NPO status -: Nutritional support with Renal TF's goal rate 55ml/h -: DNR status * Transfer to medical floor * AM lab: BMP, CBC, PT/INR
[2017-01-03 14:03] VITALS: BMI 32.8
[2017-01-03] MEDS ORDERED: Warfarin Sodium 1 MG TAB PO SCH (17:00)
[2017-01-03] MEDS: Nebivolol HCl 5 MG TAB PO SCH (21:03)
[2017-01-03] MEDS: Insulin Detemir 100 UNITS/ML 60 UNITS in Pre-Filled Syringe 1 EACH SC SCH (21:21)
[2017-01-04] MEDS: Artificial Tear Sol 15 ML BOT EA EYE PRN ×2 (00:22→09:58)
[2017-01-04] MEDS: HumaLOG 300 UNITS/3 ML VIAL SC PRN ×2 (05:15→21:38)
[2017-01-04 05:43] LABS: Prothrombin Time 17.3 SEC (12.0-14.7)
[2017-01-04 05:56] LABS: Anion Gap 8 mmol/L (10-20); BUN (Urea Nitrogen) 64 mg/dL (8.4-25.7); Calc. Creatinine Clearance 41 mL/min (70-130); Calcium 8.6 mg/dL (7.8-10.44); Carbon Dioxide 26 mmol/L (23-31); Chloride 119 mmol/L (98-107); Estimated GFR-MDRD 29
[2017-01-04 06:27] LABS: Band 3 % (5-11); Hematocrit 40.7 % (42.0-52.0); Mean Platelet Volume 8.2 fL (7.4-10.4); Neutrophil 92 % (42-75); Red Blood Cell (RBC) Count 4.16 mill/uL (4.70-6.10); Toxic Granulation SLIGHT; White Blood Cell (WBC) Count 24.1 thou/uL (4.8-10.8)
[2017-01-04] MEDS: Mometasone/Formoterol 120 PUFF INHALER INH SCH ×2 (07:27→19:24)
[2017-01-04] MEDS: Allopurinol 100 MG TAB PO SCH (09:26)
[2017-01-04] MEDS: guaiFENesin ER 600 MG TAB PO SCH ×2 (09:27→21:32)
[2017-01-04] MEDS: Calcitriol 0.25 MCG CAP PO SCH (09:27)
[2017-01-04] MEDS: Pantoprazole 40 MG GRANULES PACKET PER TUBE SCH (09:28)
--- NOTE | 2017-01-04 09:30 | PRG ---
DATE OF SERVICE: 01/04/2017 The patient is somnolent in bed, does not appear to be in any overt distress. PHYSICAL EXAMINATION: VITAL SIGNS: On exam temperature is 97.9, pulse 76, O2 sat 93% on 3 liters, blood pressure 148/83. HEENT: Unremarkable. NECK: No JVD. LUNGS: Clear, but distant breath sounds. CARDIAC: S1 and S2 regular. ABDOMEN: Soft. EXTREMITIES: No edema. LABORATORY DATA: White blood cell count 24.1, hematocrit 40.7, platelet count 150. Sodium 140, pota ssium 5.3, chloride 119, CO2 26, BUN 64, creatinine 2.2, glucose 342. ASSESSMENT: 1. Chronic obstructive pulmonary disease - end-stage. 2. Status post PEG tube placement. 3. Chronic kidney disease. 4. Hypernatremia. PLAN: In my opinion, Mr. Joyner has end-stage chronic obstructive pulmonary disease which is unlikely to get better with either conservative or aggressive treatment. I have encouraged hospice care with family, but I do not think they are interested in that avenue.
[2017-01-04] MEDS: Insulin Detemir 100 UNITS/ML 30 UNITS in Pre-Filled Syringe 1 EACH SC SCH (09:42)
[2017-01-04] MEDS: STERILE WATER IVPB SCH ×2 (09:55→21:31)
[2017-01-04] MEDS: CEFEPIME IVPB SCH ×2 (09:55→21:31)
--- NOTE | 2017-01-04 16:47 | PDOC.PN ---
- Subjective Encounter Start Date: 01/04/17 Encounter Start Time: 16:30 Subjective: f/u for acute/chronic hypoxic resp failure and end-stage COPD. -: AMS persists with minimal response to staff and family. - Objective Resuscitation Status: Resuscitation Status DNR:Do Not Resuscitate MAR Reviewed: Yes Vital Signs & Weight: Vital Signs (12 hours) Temp Pulse Resp BP Pulse Ox 01/04/17 14:54 88 20 01/04/17 10:28 84 22 H 01/04/17 08:00 99.0 F 84 22 H 91 L 01/04/17 07:29 93 L 01/04/17 07:26 76 20 93 L 01/04/17 07:10 97.9 F 70 20 148/83 H 95 Weight Admit Weight 242 lb Weight 235 lb 10.786 oz Most Recent Monitor Data Heart Rate from ECG 77 NIBP 165/78 NIBP BP-Mean 98 Respiration from ECG 15 SpO2 99 I&O: 01/03/17 01/04/17 01/05/17 06:59 06:59 06:59 Intake Total 3232 3055 Output Total 2045 1665 Balance 1187 1390 Result Diagrams: 01/04/17 04:59 01/04/17 04:59 Additional Labs: Accuchecks 01/04/17 01/04/17 01/03/17 11:32 05:11 20:08 POC Glucose 261 H 270 H 324 H 01/03/17 16:45 POC Glucose 244 H Laboratory Tests 12/29/16 12/30/16 12/30/16 04:33 03:38 03:38 WBC 22.6 H 21.6 H PT INR 1.9 Sodium Potassium BUN Creatinine 12/31/16 12/31/16 01/01/17 04:02 04:02 03:50 WBC 18.9 H PT INR Sodium 146 H 148 H Potassium BUN 62 H 60 H Creatinine 1.66 H 1.83 H 01/01/17 01/01/17 01/02/17 03:50 10:58 04:40 WBC 19.6 H PT INR 3.0 3.1 Sodium Potassium BUN Creatinine 01/02/17 01/02/17 01/03/17 04:40 04:40 04:20 WBC 21.3 H PT INR 2.1 Sodium 152 H Potassium BUN 62 H Creatinine 2.06 H 1101/03/17 01/04/17 04:20 04:20 04:59 WBC 24.2 H PT 17.3 H INR 1.4 Sodium Potassium 5.1 BUN Creatinine 2.08 H Phys Exam - Physical Examination alert, mumbles a few words, gurgling sounds in throat Neck: no JVD, supple scattered coarse sounds bilat Cardiovascular: RRR PEG site CDI Gastrointestinal: soft, non-tender, no distention, positive bowel sounds Musculoskeletal: pulses present, edema present Neurological: normal sensation, moves all 4 limbs Skin: normal turgor, cap refill <2 seconds Dx/Plan (1) Acute metabolic encephalopathy Code(s): G93.41 - METABOLIC ENCEPHALOPATHY Status: Acute Comment: CO2 narcosis, multifactorial, persistent (2) Acute on chronic respiratory failure with hypoxia and hypercapnia Code(s): J96.21 - ACUTE AND CHRONIC RESPIRATORY FAILURE WITH HYPOXIA; J96.22 - ACUTE AND CHRONIC RESPIRATORY FAILURE WITH HYPERCAPNIA Status: Acute Comment : extubated, continue pulmonary support, Duonebs, O2 support (3) Acute worsening of stage 3 chronic kidney disease Code(s): N18.3 - CHRONIC KIDNEY DISEASE, STAGE 3 (MODERATE) Status: Acute Comment: Persistent, avoid nephrotoxic meds and contrast media (4) Hypernatremia Code(s): E87.0 - HYPEROSMOLALITY AND HYPERNATREMIA Status: Acute Comment: Free H2O replacement 300ml PT q6h (5) Oropharyngeal dysphagia Code(s): R13.12 - DYSPHAGIA, OROPHARYNGEAL PHASE Status: Acute Comment: s/p PEG placement 01/01/17, TF's with Renal formula at 55ml/h (6) Physical deconditioning Code(s): R53.81 - OTHER MALAISE Status: Chronic Comment: Severe (7) Chronic anticoagulation Code(s): Z79.01 - WATER TENDER (CURRENT) USE OF ANTICOAGULANTS Status: Chronic Comment: INR 2.1 down to 1.4 (8) Paroxysmal atrial fibrillation Code(s): I48.0 - PAROXYSMAL ATRIAL FIBRILLATION Status: Chronic (9) Hyperglycemia Code(s): R73.9 - HYPERGLYCEMIA, UNSPECIFIED Status: Acute Comment: Due to steroids, Increase Levemir 40u sc qam and 60u qhs (10) Aspiration pneumonia due to gastric secretions Code(s): J69.0 - PNEUMONITIS DUE TO INHALATION OF FOOD AND VOMIT Status: Acute Qualifiers: Laterality: bilateral Comment: Continue Cefepime 1gm IV q12h, NPO - Plan plan discussed w/ family, continue antibiotics, PT/OT, social services analyst, speech therapy, respiratory therapy, DVT proph w/SCDs Slow clinical improvement -: Continue Nutritional support with Suplena 55ml/h -: Oral care/suctioning prn -: Continue Duonebs, Dulera, Solumedrol, O2 support -: Rehab/SNF options * Increase Levemir 40u qam and 60u qhs * Updated family of status * Poor prognosis
[2017-01-04] MEDS: Warfarin Sodium 2.5 MG TAB PO SCH (17:16)
[2017-01-04] MEDS: Acetaminophen 325 MG TAB PO PRN (17:17)
[2017-01-04] MEDS: Insulin Detemir 100 UNITS/ML 60 UNITS in Pre-Filled Syringe 1 EACH SC SCH (21:33)
[2017-01-04] MEDS: Nebivolol HCl 5 MG TAB PO SCH (21:34)
[2017-01-05] MEDS: Acetaminophen 325 MG TAB PO PRN (00:29)
[2017-01-05 04:38] LABS: Prothrombin Time 16.1 SEC (12.0-14.7)
[2017-01-05 04:54] LABS: Anion Gap 7 mmol/L (10-20); BUN (Urea Nitrogen) 65 mg/dL (8.4-25.7); Calc. Creatinine Clearance 41 mL/min (70-130); Calcium 8.7 mg/dL (7.8-10.44); Carbon Dioxide 28 mmol/L (23-31); Chloride 117 mmol/L (98-107); Estimated GFR-MDRD 28
[2017-01-05 05:19] LABS: Band 4 % (5-11); Hematocrit 39.2 % (42.0-52.0); Mean Platelet Volume 8.4 fL (7.4-10.4); Neutrophil 91 % (42-75); Nucleated RBC 1 % (0); Red Blood Cell (RBC) Count 4.04 mill/uL (4.70-6.10); White Blood Cell (WBC) Count 19.7 thou/uL (4.8-10.8)
[2017-01-05] MEDS: HumaLOG 300 UNITS/3 ML VIAL SC PRN ×2 (06:04→17:05)
[2017-01-05] MEDS: Pantoprazole 40 MG GRANULES PACKET PER TUBE SCH (08:29)
[2017-01-05] MEDS: guaiFENesin ER 600 MG TAB PO SCH ×2 (08:29→20:55)
[2017-01-05] MEDS: Allopurinol 100 MG TAB PO SCH (08:30)
[2017-01-05] MEDS: Calcitriol 0.25 MCG CAP PO SCH (08:31)
[2017-01-05] MEDS: Scopolamine 1.5 mg/72 hour Patch TD SCH (08:39)
[2017-01-05] MEDS ORDERED: Warfarin Sodium 2.5 MG TAB PO SCH (09:00)
[2017-01-05] MEDS: Insulin Detemir 100 UNITS/ML 40 UNITS in Pre-Filled Syringe 1 EACH SC SCH (09:54)
[2017-01-05] MEDS: CEFEPIME IVPB SCH ×2 (09:56→20:54)
[2017-01-05] MEDS: STERILE WATER IVPB SCH ×2 (09:56→20:54)
[2017-01-05] MEDS: Mometasone/Formoterol 120 PUFF INHALER INH SCH ×2 (10:34→19:23)
--- NOTE | 2017-01-05 11:50 | PRG ---
DATE OF SERVICE: 01/05/2017 SUBJECTIVE: The patient seems to be doing reasonably well according to the family, although when I a m examining him, he cannot really do much. PHYSICAL EXAMINATION: VITAL SIGNS: On exam, temperature is 98.6, pulse 73, O2 sat 94% on 3 liters, blood pressure 167/71. HEENT: Remarkable for disheveled appearance and dry oral mucous membranes. NECK: No JVD. LUNGS: Poor air movement. CARDIOVASCULAR: S1 and S2 regular. ABDOMEN: Soft. EXTREMITIES: No edema. ASSESSMENT: 1. End-stage chronic obstructive pulmonary disease. 2. Chronic respiratory failure. 3. Azotemia. 4. Hyperglycemia. PLAN: I really think the hospice would be the best course for this patient as I do not see him being capable of improvement. He is continuing IV steroids and antibiotics. Placement is in the works.
--- NOTE | 2017-01-05 13:51 | PDOC.PN ---
- Subjective Encounter Start Date: 01/05/17 Encounter Start Time: 10:45 Subjective: lethargic, sob+ -: at bedside - Objective Resuscitation Status: Resuscitation Status DNR:Do Not Resuscitate MAR Reviewed: Yes Vital Signs & Weight: Vital Signs (12 hours) Temp Pulse Resp BP Pulse Ox 01/05/17 11:39 97.4 F L 74 22 H 159/81 H 94 L 01/05/17 10:32 73 22 H 94 L 01/05/17 08:00 98.6 F 73 24 H 167/71 H 94 L 01/05/17 03:01 81 22 H Weight Admit Weight 242 lb Weight 235 lb Most Recent Monitor Data Heart Rate from ECG 77 NIBP 165/78 NIBP BP-Mean 98 Respiration from ECG 15 SpO2 99 I&O: 01/04/17 01/05/17 01/06/17 06:59 06:59 06:59 Intake Total 3055 926 Output Total 1665 2400 Balance 1390 -1474 Result Diagrams: 01/05/17 03:57 01/05/17 03:57 Additional Labs: Accuchecks 01/05/17 01/05/17 01/04/17 11:41 05:56 20:00 POC Glucose 298 H 328 H 225 H 01/04/17 16:48 POC Glucose 235 H Phys Exam - Physical Examination HEENT: PERRLA, sclera anicteric Neck: no JVD, supple Respiratory: no rales, wheezing present Cardiovascular: RRR, no significant murmur Gastrointestinal: soft, non-tender, positive bowel sounds peg+ Musculoskeletal: pulses present, edema present Neurological: non-focal, moves all 4 limbs Dx/Plan (1) COPD (chronic obstructive pulmonary disease) Status: Acute Qualifiers: COPD type: COPD with acute exacerbation Qualified Code(s): J44.1 - Chronic obstructive pulmonary disease with (acute) exacerbation (2) Acute and chronic respiratory failure ([id number]) Code(s): J96.20 - ACUTE AND CHR RESP FAILURE, UNSP W HYPOXIA OR HYPERCAPNIA Status: Acute Qualifiers: Respiratory failure complication: hypoxia Qualified Code(s): J96.21 - Acute and chronic respiratory failure with hypoxia (3) HTN (hypertension) Code(s): I10 - ESSENTIAL (PRIMARY) HYPERTENSION Status: Chronic Qualifiers: Hypertension type: essential hypertension Qualified Code(s): I10 - Essential (primary) hypertension (4) Dyslipidemia Code(s): E78.5 - HYPERLIPIDEMIA, UNSPECIFIED Status: Chronic (5) Metabolic acidosis Code(s): E87.2 - ACIDOSIS Status: Resolved (6) Chronic kidney disease (CKD) Code(s): N18.9 - CHRONIC KIDNEY DISEASE, UNSPECIFIED Status: Chronic Qualifiers: Chronic kidney disease stage: stage 3 (moderate) Qualified Code(s): N18.3 - Chronic kidney disease, stage 3 (moderate) (7) Diabetes mellitus, insulin dependent (IDDM), controlled Code(s): E11.9 - TYPE 2 DIABETES MELLITUS WITHOUT COMPLICATIONS; Z79.4 - USP (CURRENT) USE OF INSULIN Status: Chronic (8) History of atrial flutter Code(s): Z86.79 - PERSONAL HISTORY OF OTHER DISEASES OF THE CIRCULATORY SYSTEM Status: Chronic Comment: Multiple previous ablations, currently in NSR, on Coumadin (9) RADHA (acute kidney injury) Code(s): N17.9 - ACUTE KIDNEY FAILURE, UNSPECIFIED Status: Acute (10) Acute metabolic encephalopathy Code(s): G93.41 - METABOLIC ENCEPHALOPATHY Status: Acute Comment: CO2 narcosis, multifactorial, persistent (11) Hypernatremia Code(s): E87.0 - HYPEROSMOLALITY AND HYPERNATREMIA Status: Acute Comment: Free H2O replacement 300ml PT q6h (12) Physical deconditioning Code(s): R53.81 - OTHER MALAISE Status: Chronic Comment: Severe - Plan is on cefepime, solumedrol along with nebs -: severe deconditioning, at bedside is optimistic -: on levemir 40 qam and 60qpm -: small dose of coumadin -: free water for hypernatremia, peg feeds, poor prognosis * . awaiting placement, d/w at bedside that he needs snf and cannot come home unless its under hospice. Review of Systems - Medications/Allergies Allergies/Adverse Reactions: Allergies Allergy/AdvReac Type Severity Reaction Status Date / Time exenatide [From By[place]] Allergy Severe Verified 11/17/12 04:50 sitagliptin phosphate Allergy Severe Verified 11/17/12 04:50 [From Januvia] clindamycin Allergy Intermediate Swollen Verified 11/17/12 04:48 Lips erythromycin base Allergy Intermediate Swollen Verified 11/17/12 04:48 [Erythromycin Base] Lips hydrocodone Allergy Intermediate Verified 11/17/12 04:49 Sulfa (Sulfonamide Allergy Intermediate Swollen Verified 11/17/12 04:49 Antibiotics) Lips phenol Allergy Verified 11/17/12 04:50 propoxyphene napsylate Allergy Verified 11/17/12 04:50 [From Darvocet-N 100] Medications: Current Medications Acetaminophen (Tylenol) 650 mg PO Q4H PRN PRN Reason: Headache/Fever or Pain Last Admin: 01/05/17 00:29 Dose: 650 mg Al Hydroxide/Mg Hydroxide (Maalox) 30 ml PO Q6H PRN PRN Reason: Heartburn or Indigestion Albuterol/Ipratropium (Duoneb) 3 ml NEB [id number] [facility] Last Admin: 01/05/17 10:32 Dose: 3 ml Allopurinol (Zyloprim) 50 mg PO DAILY [facility] Last Admin: 01/05/17 08:30 Dose: 50 mg Artificial Tears (Tears Renewed 15ml Bottle) 0 drop EA EYE PRN PRN PRN Reason: Dry Eyes Last Admin: 01/04/17 09:58 Dose: 2 drop Benzonatate (Tessalon) 100 mg PO Q4H PRN PRN Reason: Cough Bisacodyl (Dulcolax) 10 mg ID DAILYPRN PRN PRN Reason: Constipation Last Admin: 12/29/16 14:51 Dose: 10 mg Calcitriol (Rocaltrol) 0.25 mcg PO DAILY [facility] Last Admin: 01/05/17 08:31 Dose: 0.25 mcg Clonidine (Catapres) 0.1 mg PO Q4H PRN PRN Reason: Systolic BP > 180 Dextrose/Water (Dextrose 50%) 25 gm SLOW IVP PRN PRN PRN Reason: Hypoglycemia Diltiazem HCl (Cardizem) 30 mg PER TUBE Q6HR [facility] Last Admin: 01/05/17 12:31 Dose: 30 mg Glucagon (Glucagon) 1 mg IM PRN PRN PRN Reason: Hypoglycemia Guaifenesin (Mucinex) 1,200 mg PO Q12HR [facility] Last Admin: 01/05/17 08:29 Dose: 1,200 mg Hydralazine HCl (Apresoline) 10 mg SLOW IVP Q4H PRN PRN Reason: Systolic BP > 180 Dextrose/Water (D5w) 1,000 mls @ 0 mls/hr IV .Q0M PRN; As Directed PRN Reason: Hypoglycemia Cefepime HCl 1 gm/ Sterile (Water) 10 mls @ 120 mls/hr IVPB Q12HR [facility] Last Admin: 01/05/17 09:56 Dose: 10 mls Insulin Detemir 60 units/ (Miscellaneous Medication) 0.6 mls @ 0 mls/hr SC HS [facility] Last Admin: 01/04/17 21:33 Dose: 0.6 mls Insulin Detemir 40 units/ (Miscellaneous Medication) 0.4 mls @ 0.1 mls/hr SC QAM [facility] Last Admin: 01/05/17 09:54 Dose: 0.4 mls Insulin Human Lispro (Humalog) 0 units SC .AGGRESSIVE SLIDING PRN PRN Reason: Aggressive Correctional Scale Last Admin: 01/05/17 06:04 Dose: 11 unit Insulin Human Lispro (Humalog) 0 units SC .BEDTIME SLIDING SC PRN PRN Reason: Bedtime Correctional Scale Last Admin: 01/04/17 21:38 Dose: 2 unit Laxative/Stool Softener (Laxative Of Choice) 1 each PO DAILY PRN PRN Reason: Constipation Loperamide HCl (Imodium) 2 mg PO PRN PRN PRN Reason: Diarrhea/Loose Stools Magnesium Hydroxide (Milk Of Magnesium) 30 ml PO DAILYPRN PRN PRN Reason: Constipation Methylprednisolone Sodium Succinate (Solu-Medrol) 20 mg IVP Q8HR [facility] Last Admin: 01/05/17 05:25 Dose: 20 mg Mineral Oil/White Petrolatum (Eucerin Cream) 0 gm TOP BIDPRN PRN PRN Reason: Dry Skin Miscellaneous Medication (Pharmacy To Dose) 0 each PO ASDIR [facility] Mometasone Furoate/Formoterol Fumar (Dulera 200 Mcg/5 Mcg Inhaler) 2 puff INH BID-RT [facility] Last Admin: 01/05/17 10:34 Dose: 2 puff Nebivolol (Bystolic) 5 [address] [facility] Last Admin: 01/04/17 21:34 Dose: 5 mg Ondansetron HCl (Zofran Odt) 4 mg PO Q6H PRN PRN Reason: Nausea/Vomiting Ondansetron HCl (Zofran) 4 mg IVP Q6H PRN PRN Reason: Nausea/Vomiting Pantoprazole Sodium (Protonix) 40 mg PER TUBE DAILY [facility] Last Admin: 01/05/17 08:29 Dose: 40 mg Phenylephrine HCl (Zach-Synephrine 0.5% Nasal Epps) 0 ml EA NARE PRN PRN PRN Reason: FOR NOSE Scopolamine (Transderm Scop) 1.5 mg TD Q3D [facility] Last Admin: 01/05/17 08:39 Dose: 1.5 mg Senna (Senokot) 2 tab PO HSPRN PRN PRN Reason: Constipation Last Admin: 01/03/17 12:12 Dose: 2 tab Sodium Chloride ([place] Nasal Epps 0.65%) 0 ml EA NARE QIDPRN PRN PRN Reason: Nasal Congestion Last Admin: 12/24/16 20:33 Dose: 1 each Sodium Chloride (Flush - Normal Saline) 10 ml IVF Q12HR [facility] Last Admin: 01/05/17 10:08 Dose: 10 ml Sodium Chloride (Flush - Normal Saline) 10 ml IVF PRN PRN PRN Reason: Saline Flush Last Admin: 01/04/17 05:15 Dose: 10 ml Warfarin Sodium (Coumadin) 2.5 mg PO 1700 [facility] Last Admin: 01/04/17 17:16 Dose: 2.5 mg
[2017-01-05] MEDS: Warfarin Sodium 2.5 MG TAB PO SCH (17:03)
[2017-01-05] MEDS: Nebivolol HCl 5 MG TAB PO SCH (20:55)
[2017-01-05] MEDS: Insulin Detemir 100 UNITS/ML 60 UNITS in Pre-Filled Syringe 1 EACH SC SCH (20:55)
[2017-01-06] MEDS: Acetaminophen 325 MG TAB PO PRN (01:08)
[2017-01-06] MEDS ORDERED: Milk Of Magnesia 30 ML UDCUP PER TUBE PRN (04:15)
[2017-01-06] MEDS ORDERED: Senokot 8.6 MG TAB PER TUBE PRN (04:15)
[2017-01-06] MEDS ORDERED: Loperamide HCl 2 MG CAP PER TUBE PRN (04:15)
[2017-01-06] MEDS ORDERED: Ondansetron ODT 4 MG TAB PER TUBE PRN (04:15)
[2017-01-06] MEDS ORDERED: cloNIDine 0.1 MG TAB PER TUBE PRN (04:15)
[2017-01-06] MEDS ORDERED: Mag-Al 1200 mg/1200 mg/30 ML UDCUP PER TUBE PRN (04:15)
[2017-01-06] MEDS: Acetaminophen 325 MG TAB PER TUBE PRN ×4 (05:25→18:38)
[2017-01-06] MEDS: HumaLOG 300 UNITS/3 ML VIAL SC PRN ×3 (05:45→17:28)
[2017-01-06 06:11] LABS: Anion Gap 9 mmol/L (10-20); BUN (Urea Nitrogen) 59 mg/dL (8.4-25.7); Calc. Creatinine Clearance 48 mL/min (70-130); Calcium 8.9 mg/dL (7.8-10.44); Carbon Dioxide 29 mmol/L (23-31); Chloride 114 mmol/L (98-107); Estimated GFR-MDRD 33
[2017-01-06 06:20] LABS: Hematocrit 42.5 % (42.0-52.0); Hypochromia SLIGHT = 6-15 cells (100X) (0-5/hpf); Mean Platelet Volume 9.4 fL (7.4-10.4); Neutrophil 90 % (42-75); Red Blood Cell (RBC) Count 4.45 mill/uL (4.70-6.10); White Blood Cell (WBC) Count 20.6 thou/uL (4.8-10.8)
[2017-01-06 06:23] LABS: Prothrombin Time 17.2 SEC (12.0-14.7)
[2017-01-06] MEDS: Mometasone/Formoterol 120 PUFF INHALER INH SCH ×2 (07:03→19:37)
[2017-01-06] MEDS ORDERED: Warfarin Sodium 2.5 MG TAB PER TUBE SCH ×2 (07:45→17:00)
[2017-01-06] MEDS: STERILE WATER IVPB SCH ×2 (08:55→21:20)
[2017-01-06] MEDS: CEFEPIME IVPB SCH ×2 (08:55→21:20)
[2017-01-06] MEDS: Pantoprazole 40 MG GRANULES PACKET PER TUBE SCH (09:42)
[2017-01-06] MEDS: Allopurinol 100 MG TAB PER TUBE SCH (09:42)
[2017-01-06] MEDS: Diabetic Tussin 200 MG/10 ML UDCUP PER TUBE SCH ×2 (09:43→21:20)
[2017-01-06] MEDS: Calcitriol 0.25 MCG CAP FS SCH (09:43)
[2017-01-06] MEDS: Insulin Detemir 100 UNITS/ML 40 UNITS in Pre-Filled Syringe 1 EACH SC SCH (09:44)
--- NOTE | 2017-01-06 11:17 | PRG ---
DATE OF SERVICE: 01/06/2017 SUBJECTIVE: The patient is actually doing better. He is awake. He is able to communicate. He want s to eat and drink. PHYSICAL EXAMINATION: VITAL SIGNS: One exam, temperature is 97.8, pulse 63, respirations 20, O2 sat 93%, blood pressure 16 8/89. HEENT: Unremarkable. NECK: No JVD. LUNGS: Coarse breath sounds. CARDIAC: S1 and S2 regular. ABDOMEN: PEG tube noted. EXTREMITIES: No edema. LABORATORY DATA: White blood cell count 10.6, hematocrit 42.5, platelet count 106. Sodium 147, pota ssium 4.7, chloride 114, CO2 of 29, BUN 59, creatinine 1.9, glucose 178. ASSESSMENT: 1. Slow improvement in his chronic obstructive pulmonary disease exacerbation and his encephalopathy . 2. Azotemia, which is improved. PLAN: 1. Continue enteral tube feeds. 2. Discontinue the daily laboratory checks. 3. Follow INRs for warfarin use daily.
--- NOTE | 2017-01-06 13:51 | PDOC.PN ---
- Subjective Encounter Start Date: 01/06/17 Encounter Start Time: 11:15 Subjective: is more awake and moving his extremities well this am -: still has cough - Objective Resuscitation Status: Resuscitation Status DNR:Do Not Resuscitate MAR Reviewed: Yes Vital Signs & Weight: Vital Signs (12 hours) Temp Pulse Resp BP BP BP Pulse Ox 01/06/17 10:58 97.5 F L 78 18 165/87 H 93 L 01/06/17 10:31 63 18 93 L 01/06/17 08:00 97.8 F 63 18 93 L 01/06/17 07:41 97.8 F 63 18 168/89 H 93 L 01/06/17 07:01 67 18 95 01/06/17 06:36 98.7 F 64 16 175/92 H 96 01/06/17 06:00 64 149/81 H 01/06/17 04:05 64 175/92 H 01/06/17 02:32 63 16 95 Weight Admit Weight 242 lb Weight 239 lb 1.6 oz Most Recent Monitor Data Heart Rate from ECG 77 NIBP 165/78 NIBP BP-Mean 98 Respiration from ECG 15 SpO2 99 I&O: 01/05/17 01/06/17 01/07/17 06:59 06:59 06:59 Intake Total 926 4020 300 Output Total 2400 4375 Balance -1474 -355 300 Result Diagrams: 01/06/17 05:49 01/06/17 05:49 Additional Labs: Accuchecks 01/06/17 01/06/17 01/05/17 11:04 03:53 19:49 POC Glucose 194 H 169 H 196 H 01/05/17 16:27 POC Glucose 244 H Phys Exam - Physical Examination HEENT: PERRLA, moist MMs Neck: no JVD, supple Respiratory: no wheezing, no rales rhonchi+ Cardiovascular: RRR, no significant murmur Gastrointestinal: soft, non-tender, positive bowel sounds Musculoskeletal: no edema, pulses present Neurological: non-focal, moves all 4 limbs Dx/Plan (1) COPD (chronic obstructive pulmonary disease) Status: Acute Qualifiers: COPD type: COPD with acute exacerbation Qualified Code(s): J44.1 - Chronic obstructive pulmonary disease with (acute) exacerbation (2) Acute and chronic respiratory failure ([id number]) Code(s): J96.20 - ACUTE AND CHR RESP FAILURE, UNSP W HYPOXIA OR HYPERCAPNIA Status: Acute Qualifiers: Respiratory failure complication: hypoxia Qualified Code(s): J96.21 - Acute and chronic respiratory failure with hypoxia (3) HTN (hypertension) Code(s): I10 - ESSENTIAL (PRIMARY) HYPERTENSION Status: Chronic Qualifiers: Hypertension type: essential hypertension Qualified Code(s): I10 - Essential (primary) hypertension (4) Dyslipidemia Code(s): E78.5 - HYPERLIPIDEMIA, UNSPECIFIED Status: Chronic (5) Metabolic acidosis Code(s): E87.2 - ACIDOSIS Status: Resolved (6) Chronic kidney disease (CKD) Code(s): N18.9 - CHRONIC KIDNEY DISEASE, UNSPECIFIED Status: Chronic Qualifiers: Chronic kidney disease stage: stage 3 (moderate) Qualified Code(s): N18.3 - Chronic kidney disease, stage 3 (moderate) (7) Diabetes mellitus, insulin dependent (IDDM), controlled Code(s): E11.9 - TYPE 2 DIABETES MELLITUS WITHOUT COMPLICATIONS; 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 Status: Chronic (8) History of atrial flutter Code(s): Z86.79 - PERSONAL HISTORY OF OTHER DISEASES OF THE CIRCULATORY SYSTEM Status: Chronic Comment: Multiple previous ablations, currently in NSR, on Coumadin (9) RADHA (acute kidney injury) Code(s): N17.9 - ACUTE KIDNEY FAILURE, UNSPECIFIED Status: Acute (10) Acute metabolic encephalopathy Code(s): G93.41 - METABOLIC ENCEPHALOPATHY Status: Acute Comment: CO2 narcosis, multifactorial, persistent (11) Hypernatremia Code(s): E87.0 - HYPEROSMOLALITY AND HYPERNATREMIA Status: Acute Comment: Free H2O replacement 300ml PT q6h (12) Physical deconditioning Code(s): R53.81 - OTHER MALAISE Status: Chronic Comment: Severe - Plan no clear sign of any aspiration pna -: peg feeding, is on cefepime and iv steroids -: wbc is elevated due to steroids -: free water via peg, d/w daughter at bedside -: will need snf placement, renal function is slowly stabilizing * . Review of Systems - Medications/Allergies Allergies/Adverse Reactions: Allergies Allergy/AdvReac Type Severity Reaction Status Date / Time exenatide [From [place]] Allergy Severe Verified 11/17/12 04:50 sitagliptin phosphate Allergy Severe Verified 11/17/12 04:50 [From Januvia] clindamycin Allergy Intermediate Swollen Verified 11/17/12 04:48 Lips erythromycin base Allergy Intermediate Swollen Verified 11/17/12 04:48 [Erythromycin Base] Lips hydrocodone Allergy Intermediate Verified 11/17/12 04:49 Sulfa (Sulfonamide Allergy Intermediate Swollen Verified 11/17/12 04:49 Antibiotics) Lips phenol Allergy Verified 11/17/12 04:50 propoxyphene napsylate Allergy Verified 11/17/12 04:50 [From Darvocet-N 100] Medications: Current Medications Acetaminophen (Tylenol) 650 mg PER TUBE Q4H PRN PRN Reason: Headache/Fever or Pain Last Admin: 01/06/17 09:41 Dose: 650 mg Al Hydroxide/Mg Hydroxide (Maalox) 30 ml PER TUBE Q6H PRN PRN Reason: Heartburn or Indigestion Albuterol/Ipratropium (Duoneb) 3 ml NEB [id number] [facility] Last Admin: 01/06/17 10:31 Dose: 3 ml Allopurinol (Zyloprim) 50 mg PER TUBE DAILY [facility] Last Admin: 01/06/17 09:42 Dose: 50 mg Artificial Tears (Tears Renewed 15ml Bottle) 0 drop EA EYE PRN PRN PRN Reason: Dry Eyes Last Admin: 01/04/17 09:58 Dose: 2 drop Benzonatate (Tessalon) 100 mg PO Q4H PRN PRN Reason: Cough Bisacodyl (Dulcolax) [address] DAILYPRN PRN PRN Reason: Constipation Last Admin: 12/29/16 14:51 Dose: 10 mg Calcitriol (Rocaltrol) 0.25 mcg FS DAILY [facility] Last Admin: 01/06/17 09:43 Dose: Not Given Clonidine (Catapres) 0.1 mg PER TUBE Q4H PRN PRN Reason: Systolic BP > 180 Dextrose/Water (Dextrose 50%) 25 gm SLOW IVP PRN PRN PRN Reason: Hypoglycemia Diltiazem HCl (Cardizem) 30 mg PER TUBE Q6HR [facility] Last Admin: 01/06/17 11:46 Dose: 30 mg Glucagon (Glucagon) 1 mg IM PRN PRN PRN Reason: Hypoglycemia Guaifenesin (Robitussin Sf) 1,200 mg PER TUBE Q12HR [facility] Last Admin: 01/06/17 09:43 Dose: 1,200 mg Hydralazine HCl (Apresoline) 10 mg SLOW IVP Q4H PRN PRN Reason: Systolic BP > 180 Last Admin: 01/06/17 04:05 Dose: 10 mg Dextrose/Water (D5w) 1,000 mls @ 0 mls/hr IV .Q0M PRN; As Directed PRN Reason: Hypoglycemia Cefepime HCl 1 gm/ Sterile (Water) 10 mls @ 120 mls/hr IVPB Q12HR [facility] Last Admin: 01/06/17 08:55 Dose: 10 mls Insulin Detemir 60 units/ (Miscellaneous Medication) 0.6 mls @ 0 mls/hr SC HS [facility] Last Admin: 01/05/17 20:55 Dose: 0.6 mls Insulin Detemir 40 units/ (Miscellaneous Medication) 0.4 mls @ 0.1 mls/hr SC QAM [facility] Last Admin: 01/06/17 09:44 Dose: 0.4 mls Insulin Human Lispro (Humalog) 0 units SC .AGGRESSIVE SLIDING PRN PRN Reason: Aggressive Correctional Scale Last Admin: 01/06/17 11:47 Dose: 3 unit Insulin Human Lispro (Humalog) 0 units SC .BEDTIME SLIDING SC PRN PRN Reason: Bedtime Correctional Scale Last Admin: 01/04/17 21:38 Dose: 2 unit Laxative/Stool Softener (Laxative Of Choice) 1 each PO DAILY PRN PRN Reason: Constipation Loperamide HCl (Imodium) 2 mg PER TUBE PRN PRN PRN Reason: Diarrhea/Loose Stools Magnesium Hydroxide (Milk Of Magnesium) 30 ml PER TUBE DAILYPRN PRN PRN Reason: Constipation Methylprednisolone Sodium Succinate (Solu-Medrol) 20 mg IVP Q8HR [facility] Last Admin: 01/06/17 05:25 Dose: 20 mg Mineral Oil/White Petrolatum (Eucerin Cream) 0 gm TOP BIDPRN PRN PRN Reason: Dry Skin Miscellaneous Medication (Pharmacy To Dose) 0 each PO ASDIR [facility] Mometasone Furoate/Formoterol Fumar (Dulera 200 Mcg/5 Mcg Inhaler) 2 puff INH BID-RT [facility] Last Admin: 01/06/17 07:03 Dose: 2 puff Nebivolol (Bystolic) 5 mg PO HS [facility] Last Admin: 01/05/17 20:55 Dose: 5 mg Ondansetron HCl (Zofran) 4 mg IVP Q6H PRN PRN Reason: Nausea/Vomiting Ondansetron HCl (Zofran Odt) 4 mg PER TUBE Q6H PRN PRN Reason: Nausea/Vomiting Pantoprazole Sodium (Protonix) 40 mg PER TUBE DAILY [facility] Last Admin: 01/06/17 09:42 Dose: 40 mg Phenylephrine HCl (Zach-Synephrine 0.5% Nasal [place]) 0 ml EA NARE PRN PRN PRN Reason: FOR NOSE Scopolamine (Transderm Scop) 1.5 mg TD Q3D [facility] Last Admin: 01/05/17 08:39 Dose: 1.5 mg Senna (Senokot) 2 tab PER TUBE HSPRN PRN PRN Reason: Constipation Sodium Chloride ([place] Nasal [place] 0.65%) 0 ml EA NARE QIDPRN PRN PRN Reason: Nasal Congestion Last Admin: 12/24/16 20:33 Dose: 1 each Sodium Chloride (Flush - Normal Saline) 10 ml IVF Q12HR [facility] Last Admin: 01/06/17 09:44 Dose: 10 ml Sodium Chloride (Flush - Normal Saline) 10 ml IVF PRN PRN PRN Reason: Saline Flush Last Admin: 01/04/17 05:15 Dose: 10 ml Tramadol HCl (Ultram) 50 mg PER TUBE Q8H PRN PRN Reason: Pain Warfarin Sodium (Coumadin) 2.5 mg PER TUBE 1700 [facility]
[2017-01-06] MEDS: Nebivolol HCl 5 MG TAB PO SCH (21:21)
[2017-01-06] MEDS: Insulin Detemir 100 UNITS/ML 60 UNITS in Pre-Filled Syringe 1 EACH SC SCH (21:22)
[2017-01-06] MEDS: traMADol HCl 50 MG TAB PER TUBE PRN (22:26)
[2017-01-07] MEDS: Acetaminophen 325 MG TAB PER TUBE PRN ×3 (03:04→21:00)
[2017-01-07 05:31] LABS: Prothrombin Time 18.8 SEC (12.0-14.7)
[2017-01-07] MEDS: Mometasone/Formoterol 120 PUFF INHALER INH SCH ×2 (07:00→20:24)
[2017-01-07] MEDS: Diabetic Tussin 200 MG/10 ML UDCUP PER TUBE SCH ×2 (08:16→21:01)
[2017-01-07] MEDS: Calcitriol 0.25 MCG CAP FS SCH (08:21)
[2017-01-07] MEDS: Allopurinol 100 MG TAB PER TUBE SCH (08:21)
[2017-01-07] MEDS: Pantoprazole 40 MG GRANULES PACKET PER TUBE SCH (08:22)
[2017-01-07] MEDS: traMADol HCl 50 MG TAB PER TUBE PRN ×2 (08:22→17:18)
[2017-01-07] MEDS: Insulin Detemir 100 UNITS/ML 40 UNITS in Pre-Filled Syringe 1 EACH SC SCH (08:25)
[2017-01-07 08:45] LABS: Anion Gap 8 mmol/L (10-20); BUN (Urea Nitrogen) 59 mg/dL (8.4-25.7); Calc. Creatinine Clearance 48 mL/min (70-130); Calcium 8.7 mg/dL (7.8-10.44); Carbon Dioxide 30 mmol/L (23-31); Chloride 114 mmol/L (98-107); Estimated GFR-MDRD 33
[2017-01-07 08:54] LABS: Hematocrit 37.5 % (42.0-52.0); Mean Platelet Volume 10.3 fL (7.4-10.4); Red Blood Cell (RBC) Count 3.86 mill/uL (4.70-6.10); White Blood Cell (WBC) Count 18.1 thou/uL (4.8-10.8)
[2017-01-07 08:55] LABS: Band 7 % (5-11); Neutrophil 85 % (42-75)
--- NOTE | 2017-01-07 08:59 | PRG ---
DATE OF SERVICE: 01/07/2017 Mr. Joyner is complaining of back pain. His states that he is constantly moaning. Apparently the family left a heating pad on the patient back last night until this morning. PHYSICAL EXAMINATION: VITAL SIGNS: Temperature 98.4, pulse 63, respirations 20, O2 sat 93% on 3 liters. HEENT: Unremarkable. NECK: No JVD. LUNGS: Clear but distant. CARDIAC: S1 and S2 regular. ABDOMEN: Soft. PEG tube noted. EXTREMITIES: Trace edema. LABORATORY DATA: No new labs were done today. ASSESSMENT: 1. Chronic obstructive pulmonary disease with chronic respiratory failure. 2. Azotemia. PLAN: The patient is mainly in a situation where he needs mcc care. About the only outstan ding issue is us awaiting for his Coumadin to achieve a therapeutic INR above 2. It currently is at 1.5. Dr. Mcnally will be rounding this weekend if needed.
[2017-01-07] MEDS: STERILE WATER IVPB SCH (09:39)
[2017-01-07] MEDS: CEFEPIME IVPB SCH (09:39)
--- NOTE | 2017-01-07 15:34 | PDOC.PN ---
- Subjective Encounter Start Date: 01/07/17 Encounter Start Time: 12:40 Subjective: responds well to verbal stimuli -: is able to move his extremities when asked to do so - Objective Resuscitation Status: Resuscitation Status DNR:Do Not Resuscitate MAR Reviewed: Yes Vital Signs & Weight: Vital Signs (12 hours) Temp Pulse Resp BP Pulse Ox 01/07/17 14:19 71 22 H 92 L 01/07/17 08:00 98.6 F 87 18 109/64 97 01/07/17 06:58 63 20 93 L 01/07/17 04:21 96 01/07/17 04:00 98.4 F 69 22 H 149/76 H 94 L Weight Admit Weight 242 lb Weight 239 lb 1.6 oz Most Recent Monitor Data Heart Rate from ECG 77 NIBP 165/78 NIBP BP-Mean 98 Respiration from ECG 15 SpO2 99 I&O: 01/06/17 01/07/17 01/08/17 06:59 06:59 06:59 Intake Total 4020 2360 300 Output Total 4375 950 Balance -355 1410 300 Result Diagrams: 01/07/17 05:25 01/07/17 05:25 Additional Labs: Accuchecks 01/07/17 01/07/17 01/06/17 05:19 02:58 23:07 POC Glucose 182 H 202 H 157 H 01/06/17 01/06/17 19:53 16:51 POC Glucose 154 H 191 H Phys Exam - Physical Examination HEENT: PERRLA, moist MMs Neck: no JVD, supple Respiratory: no wheezing, no rales rhonchi++ Cardiovascular: RRR, no significant murmur Gastrointestinal: soft, non-tender, positive bowel sounds peg+ Musculoskeletal: pulses present Neurological: non-focal, moves all 4 limbs lethargic but oriented Dx/Plan (1) COPD (chronic obstructive pulmonary disease) Status: Acute Qualifiers: COPD type: COPD with acute exacerbation Qualified Code(s): J44.1 - Chronic obstructive pulmonary disease with (acute) exacerbation (2) Acute and chronic respiratory failure ([id number]) Code(s): J96.20 - ACUTE AND CHR RESP FAILURE, UNSP W HYPOXIA OR HYPERCAPNIA Status: Acute Qualifiers: Respiratory failure complication: hypoxia Qualified Code(s): J96.21 - Acute and chronic respiratory failure with hypoxia (3) HTN (hypertension) Code(s): I10 - ESSENTIAL (PRIMARY) HYPERTENSION Status: Chronic Qualifiers: Hypertension type: essential hypertension Qualified Code(s): I10 - Essential (primary) hypertension (4) Dyslipidemia Code(s): E78.5 - HYPERLIPIDEMIA, UNSPECIFIED Status: Chronic (5) Metabolic acidosis Code(s): E87.2 - ACIDOSIS Status: Resolved (6) Chronic kidney disease (CKD) Code(s): N18.9 - CHRONIC KIDNEY DISEASE, UNSPECIFIED Status: Chronic Qualifiers: Chronic kidney disease stage: stage 3 (moderate) Qualified Code(s): N18.3 - Chronic kidney disease, stage 3 (moderate) (7) Diabetes mellitus, insulin dependent (IDDM), controlled Code(s): E11.9 - TYPE 2 DIABETES MELLITUS WITHOUT COMPLICATIONS; Z79.4 - MANAGER OF PLANNING (CURRENT) USE OF INSULIN Status: Chronic (8) History of atrial flutter Code(s): Z86.79 - PERSONAL HISTORY OF OTHER DISEASES OF THE CIRCULATORY SYSTEM Status: Chronic Comment: Multiple previous ablations, currently in NSR, on Coumadin (9) RADHA (acute kidney injury) Code(s): N17.9 - ACUTE KIDNEY FAILURE, UNSPECIFIED Status: Acute (10) Acute metabolic encephalopathy Code(s): G93.41 - METABOLIC ENCEPHALOPATHY Status: Acute Comment: CO2 narcosis, multifactorial, persistent (11) Hypernatremia Code(s): E87.0 - HYPEROSMOLALITY AND HYPERNATREMIA Status: Acute Comment: Free H2O replacement 300ml PT q6h (12) Physical deconditioning Code(s): R53.81 - OTHER MALAISE Status: Chronic Comment: Severe - Plan dc plan in am to snf -: may dc cefepime and switch to omnicef -: oral steroids in prep for dc in am -: is on coumadin 5mg, inr is 1.5 -: d/w daughter and * . Review of Systems - Medications/Allergies Allergies/Adverse Reactions: Allergies Allergy/AdvReac Type Severity Reaction Status Date / Time exenatide [From [place]] Allergy Severe Verified 11/17/12 04:50 sitagliptin phosphate Allergy Severe Verified 11/17/12 04:50 [From Januvia] clindamycin Allergy Intermediate Swollen Verified 11/17/12 04:48 Lips erythromycin base Allergy Intermediate Swollen Verified 11/17/12 04:48 [Erythromycin Base] Lips hydrocodone Allergy Intermediate Verified 11/17/12 04:49 Sulfa (Sulfonamide Allergy Intermediate Swollen Verified 11/17/12 04:49 Antibiotics) Lips phenol Allergy Verified 11/17/12 04:50 propoxyphene napsylate Allergy Verified 11/17/12 04:50 [From Darvocet-N 100] Medications: Current Medications Acetaminophen (Tylenol) 650 mg PER TUBE Q4H PRN PRN Reason: Headache/Fever or Pain Last Admin: 01/07/17 11:50 Dose: 650 mg Al Hydroxide/Mg Hydroxide (Maalox) 30 ml PER TUBE Q6H PRN PRN Reason: Heartburn or Indigestion Albuterol/Ipratropium (Duoneb) 3 ml NEB [id number] [facility] Last Admin: 01/07/17 14:19 Dose: 3 ml Allopurinol (Zyloprim) 50 mg PER TUBE DAILY [facility] Last Admin: 01/07/17 08:21 Dose: 50 mg Artificial Tears (Tears Renewed 15ml Bottle) 0 drop EA EYE PRN PRN PRN Reason: Dry Eyes Last Admin: 01/04/17 09:58 Dose: 2 drop Benzonatate (Tessalon) 100 mg PO Q4H PRN PRN Reason: Cough Bisacodyl (Dulcolax) 10 mg [place] DAILYPRN PRN PRN Reason: Constipation Last Admin: 12/29/16 14:51 Dose: 10 mg Calcitriol (Rocaltrol) 0.25 mcg FS DAILY [facility] Last Admin: 01/07/17 08:21 Dose: Not Given Clonidine (Catapres) 0.1 mg PER TUBE Q4H PRN PRN Reason: Systolic BP > 180 Dextrose/Water (Dextrose 50%) 25 gm SLOW IVP PRN PRN PRN Reason: Hypoglycemia Diltiazem HCl (Cardizem) 30 mg PER TUBE Q6HR [facility] Last Admin: 01/07/17 11:50 Dose: 30 mg Glucagon (Glucagon) 1 mg IM PRN PRN PRN Reason: Hypoglycemia Guaifenesin (Robitussin Sf) 1,200 mg PER TUBE Q12HR [facility] Last Admin: 01/07/17 08:16 Dose: 1,200 mg Hydralazine HCl (Apresoline) 10 mg SLOW IVP Q4H PRN PRN Reason: Systolic BP > 180 Last Admin: 01/06/17 04:05 Dose: 10 mg Dextrose/Water (D5w) 1,000 mls @ 0 mls/hr IV .Q0M PRN; As Directed PRN Reason: Hypoglycemia Cefepime HCl 1 gm/ Sterile (Water) 10 mls @ 120 mls/hr IVPB Q12HR [facility] Last Admin: 01/07/17 09:39 Dose: 10 mls Insulin Detemir 60 units/ (Miscellaneous Medication) 0.6 mls @ 0 mls/hr SC HS [facility] Last Admin: 01/06/17 21:22 Dose: 0.6 mls Insulin Detemir 40 units/ (Miscellaneous Medication) 0.4 mls @ 0.1 mls/[facility] [place] Last Admin: 01/07/17 08:25 Dose: 0.4 mls Insulin Human Lispro (Humalog) 0 units SC .AGGRESSIVE SLIDING PRN PRN Reason: Aggressive Correctional Scale Last Admin: 01/06/17 17:28 Dose: 3 unit Insulin Human Lispro (Humalog) 0 units SC .BEDTIME SLIDING SC PRN PRN Reason: Bedtime Correctional Scale Last Admin: 01/04/17 21:38 Dose: 2 unit Laxative/Stool Softener (Laxative Of Choice) 1 each PO DAILY PRN PRN Reason: Constipation Loperamide HCl (Imodium) 2 mg PER TUBE PRN PRN PRN Reason: Diarrhea/Loose Stools Magnesium Hydroxide (Milk Of Magnesium) 30 ml PER TUBE DAILYPRN PRN PRN Reason: Constipation Methylprednisolone Sodium Succinate (Solu-Medrol) 20 mg IVP Q8HR [facility] Last Admin: 01/07/17 14:36 Dose: 20 mg Mineral Oil/White Petrolatum (Eucerin Cream) 0 gm TOP BIDPRN PRN PRN Reason: Dry Skin Miscellaneous Medication (Pharmacy To Dose) 0 each PO ASDIR [facility] Mometasone Furoate/Formoterol Fumar (Dulera 200 Mcg/5 Mcg Inhaler) 2 puff INH BID-RT [facility] Last Admin: 01/07/17 07:00 Dose: 2 puff Nebivolol (Bystolic) 5 mg PO HS [facility] Last Admin: 01/06/17 21:21 Dose: 5 mg Ondansetron HCl (Zofran) 4 mg IVP Q6H PRN PRN Reason: Nausea/Vomiting Ondansetron HCl (Zofran Odt) 4 mg PER TUBE Q6H PRN PRN Reason: Nausea/Vomiting Pantoprazole Sodium (Protonix) 40 mg PER TUBE DAILY [facility] Last Admin: 01/07/17 08:22 Dose: 40 mg Phenylephrine HCl (Zach-Synephrine 0.5% Nasal [place]) 0 ml EA NARE PRN PRN PRN Reason: FOR NOSE Scopolamine (Transderm Scop) 1.5 mg TD Q3D [facility] Last Admin: 01/05/17 08:39 Dose: 1.5 mg Senna (Senokot) 2 tab PER TUBE HSPRN PRN PRN Reason: Constipation Sodium Chloride ([place] Nasal [place] 0.65%) 0 ml EA NARE QIDPRN PRN PRN Reason: Nasal Congestion Last Admin: 12/24/16 20:33 Dose: 1 each Sodium Chloride (Flush - Normal Saline) 10 ml IVF Q12HR [facility] Last Admin: 01/07/17 09:39 Dose: 10 ml Sodium Chloride (Flush - Normal Saline) 10 ml IVF PRN PRN PRN Reason: Saline Flush Last Admin: 01/04/17 05:15 Dose: 10 ml Tramadol HCl (Ultram) 50 mg PER TUBE Q8H PRN PRN Reason: Pain Last Admin: 01/07/17 08:22 Dose: 50 mg Warfarin Sodium (Coumadin) 5 mg PO 1700 [facility]
[2017-01-07] MEDS ORDERED: Warfarin Sodium 5 MG TAB PO SCH (17:00)
[2017-01-07] MEDS: Cefdinir 300 MG CAP PO SCH (21:01)
[2017-01-07] MEDS: Nebivolol HCl 5 MG TAB PO SCH (21:01)
[2017-01-07] MEDS: Insulin Detemir 100 UNITS/ML 60 UNITS in Pre-Filled Syringe 1 EACH SC SCH (21:12)
[2017-01-08] MEDS: traMADol HCl 50 MG TAB PER TUBE PRN ×2 (00:51→09:05)
[2017-01-08] MEDS: Acetaminophen 325 MG TAB PER TUBE PRN ×3 (00:55→13:30)
[2017-01-08 04:40] LABS: Anion Gap 8 mmol/L (10-20); BUN (Urea Nitrogen) 57 mg/dL (8.4-25.7); Calc. Creatinine Clearance 47 mL/min (70-130); Calcium 8.8 mg/dL (7.8-10.44); Carbon Dioxide 33 mmol/L (23-31); Chloride 114 mmol/L (98-107); Estimated GFR-MDRD 33
[2017-01-08 04:47] LABS: #Eosinphils 0.3 thou/uL (0.0-0.7); #Lymphocytes 0.6 thou/uL (1.20-3.40); #Monocytes 0.7 thou/uL (0.11-0.59); #Neutrophils 12.3 thou/uL (1.40-6.50); %Basophils 0.1 % (0.0-1.0); %Eosinophils 2.1 % (0.0-10.0); %Lymphocytes 4.6 % (21.0-51.0); %Monocytes 4.8 % (0.0-10.0); Hematocrit 37.4 % (42.0-52.0); Mean Platelet Volume 10.2 fL (7.4-10.4); Red Blood Cell (RBC) Count 3.88 mill/uL (4.70-6.10); White Blood Cell (WBC) Count 13.9 thou/uL (4.8-10.8)
[2017-01-08 04:52] LABS: Prothrombin Time 20.2 SEC (12.0-14.7)
[2017-01-08] MEDS: HumaLOG 300 UNITS/3 ML VIAL SC PRN (06:11)
[2017-01-08] MEDS: Mometasone/Formoterol 120 PUFF INHALER INH SCH (06:46)
[2017-01-08] MEDS ORDERED: predniSONE 20 MG TAB PO SCH (08:00)
[2017-01-08] MEDS: Diabetic Tussin 200 MG/10 ML UDCUP PER TUBE SCH (08:57)
[2017-01-08] MEDS: Pantoprazole 40 MG GRANULES PACKET PER TUBE SCH (08:57)
[2017-01-08] MEDS: Calcitriol 0.25 MCG CAP FS SCH (08:58)
[2017-01-08] MEDS: Scopolamine 1.5 mg/72 hour Patch TD SCH (08:58)
[2017-01-08] MEDS: Cefdinir 300 MG CAP PO SCH (08:58)
[2017-01-08] MEDS: Allopurinol 100 MG TAB PER TUBE SCH (08:58)
[2017-01-08] MEDS: Insulin Detemir 100 UNITS/ML 40 UNITS in Pre-Filled Syringe 1 EACH SC SCH (09:02)
[2017-01-08 13:26] VITALS: BP 160/86; TEMP 98.3
--- NOTE | 2017-01-08 14:15 | PDOC.PN ---
- Subjective Encounter Start Date: 01/08/17 Encounter Start Time: 07:40 Subjective: more awake, no sob - Objective Resuscitation Status: Resuscitation Status DNR:Do Not Resuscitate MAR Reviewed: Yes Vital Signs & Weight: Vital Signs (12 hours) Temp Pulse Resp BP Pulse Ox 01/08/17 12:00 98.3 F 65 18 160/86 H 93 L 01/08/17 08:00 98 F 66 20 95 01/08/17 06:46 66 20 94 L 01/08/17 06:43 66 20 94 L 01/08/17 06:02 143/84 H 01/08/17 02:27 93 L Weight Admit Weight 242 lb Weight 239 lb 1.6 oz Most Recent Monitor Data Heart Rate from ECG 77 NIBP 165/78 NIBP BP-Mean 98 Respiration from ECG 15 SpO2 99 I&O: 01/07/17 01/08/17 01/09/17 06:59 06:59 06:59 Intake Total 2360 3355 30 Output Total 950 1650 Balance 1410 1705 30 Result Diagrams: 01/08/17 03:57 01/08/17 03:57 Additional Labs: Accuchecks 01/08/17 01/08/17 01/07/17 12:04 04:30 19:50 POC Glucose 152 H 197 H 184 H 01/07/17 16:35 POC Glucose 162 H Phys Exam - Physical Examination HEENT: PERRLA, sclera anicteric Neck: no JVD, supple Respiratory: no wheezing, no rales Cardiovascular: RRR, no significant murmur Gastrointestinal: soft, no distention, positive bowel sounds peg+ Musculoskeletal: pulses present, edema present Neurological: non-focal, moves all 4 limbs Dx/Plan (1) COPD (chronic obstructive pulmonary disease) Status: Acute Qualifiers: COPD type: COPD with acute exacerbation Qualified Code(s): J44.1 - Chronic obstructive pulmonary disease with (acute) exacerbation (2) Acute and chronic respiratory failure ([id number]) Code(s): J96.20 - ACUTE AND CHR RESP FAILURE, UNSP W HYPOXIA OR HYPERCAPNIA Status: Acute Qualifiers: Respiratory failure complication: hypoxia Qualified Code(s): J96.21 - Acute and chronic respiratory failure with hypoxia (3) HTN (hypertension) Code(s): I10 - ESSENTIAL (PRIMARY) HYPERTENSION Status: Chronic Qualifiers: Hypertension type: essential hypertension Qualified Code(s): I10 - Essential (primary) hypertension (4) Dyslipidemia Code(s): E78.5 - HYPERLIPIDEMIA, UNSPECIFIED Status: Chronic (5) Metabolic acidosis Code(s): E87.2 - ACIDOSIS Status: Resolved (6) Chronic kidney disease (CKD) Code(s): N18.9 - CHRONIC KIDNEY DISEASE, UNSPECIFIED Status: Chronic Qualifiers: Chronic kidney disease stage: stage 3 (moderate) Qualified Code(s): N18.3 - Chronic kidney disease, stage 3 (moderate) (7) Diabetes mellitus, insulin dependent (IDDM), controlled Code(s): E11.9 - TYPE 2 DIABETES MELLITUS WITHOUT COMPLICATIONS; Z79.4 - CORRECTION (CURRENT) USE OF INSULIN Status: Chronic (8) History of atrial flutter Code(s): Z86.79 - PERSONAL HISTORY OF OTHER DISEASES OF THE CIRCULATORY SYSTEM Status: Chronic Comment: Multiple previous ablations, currently in NSR, on Coumadin (9) RADHA (acute kidney injury) Code(s): N17.9 - ACUTE KIDNEY FAILURE, UNSPECIFIED Status: Acute (10) Acute metabolic encephalopathy Code(s): G93.41 - METABOLIC ENCEPHALOPATHY Status: Resolved (11) Hypernatremia Code(s): E87.0 - HYPEROSMOLALITY AND HYPERNATREMIA Status: Acute Comment: resolving, free water via peg (12) Physical deconditioning Code(s): R53.81 - OTHER MALAISE Status: Chronic Comment: Severe - Plan may dc to snf this am -: d/w patient and -: he needs to f/u with in 2 weeks -: prednisone taper over 9 days, coumadin 5mg daily * .
--- NOTE | 2017-01-08 22:19 | DIS ---
DATE OF ADMISSION: 12/24/2016 DATE OF DISCHARGE: 01/08/2017 DISCHARGE DISPOSITION: To usp at [facility]. PRIMARY DISCHARGE DIAGNOSES: Acute on chronic obstructive pulmonary disease exacerbation; acute on chronic respiratory failure; hypertension; dyslipidemia; metabolic acidosis; chronic kidney disease, stage 3; diabetes mellitus, type 2; prior history of atrial flutter, which is currently well controlled; acute kidney injury on top of his chronic kidney disease stage 3; acute metabolic encephalopathy, resolving; hypernatremia; severe deconditioning. PROCEDURES DONE DURING HOSPITALIZATION: Chest x-ray done on the day of admission showed signs of COPD with no acute infiltrate. Echo with 2D Doppler done showed an EF of 60%-65%. The patient was found to have PEG tube placed on 01/01/[address] Duncan Arteaga. LABORATORY DATA: Discharge white count of 13, H&H 11 and 37, platelet count is 98. PT, INR on the day of discharge 20 and 1.7. Blood gas on the showed a pH of 7.18, pCO2 of 65, pO2 of 433 with bicarbonate of 24 on the blood gas. Discharge BUN and creatinine is 57 and 1.98. Discharge sodium levels are 151. INPATIENT CONSULTS: Dr. Steve for pulmonology, Dr. Keys for nephrology, Dr. Chandler Song for gastroenterology, Dr. Lundy for cardiology. DISCHARGE MEDICATIONS: Allopurinol 50 mg p.o. daily, aspirin 81 mg p.o. daily, atorvastatin 80 mg p.o. at bedtime, Symbicort inhaler 2 puffs twice daily, calcitriol 0.25 mcg p.o. daily, Omnicef 300 mg p.o. twice daily for another 3 days, vitamin D3 of 2000 units p.o. daily, Cardizem 30 mg p.o. 3 times daily, Zetia 5 mg p.o. daily, ferrous sulfate 325 mg p.o. daily, Lasix 40 mg p.o. daily , Neurontin 100 mg p.o. 3 times daily, Levemir 40 units subcutaneous q.a.m. and 60 units subcutaneous at bedtime, DuoNebs 4 times daily, Bystolic 5 mg p.o. at bedtime, Protonix 40 mg daily, prednisone taper starting at 20 mg for a total of 9 days, Spiriva inhaler 18 mcg daily, Coumadin 5 mg p.o. daily. ALLERGIES: EXENATIDE, SITAGLIPTIN, CLINDAMYCIN, ERYTHROMYCIN, SULFA, DARVOCET. DISCHARGE PLAN: Patient to follow up with Dr. Steve in 2 weeks. He also needs follow up with his primary care physician in 1 week. BRIEF COURSE DURING HOSPITALIZATION: Patient initially got admitted on the with complaints of shortness of breath. He was admitted for COPD exacerbation and was placed on steroids along with empiric antibiotics and nebulization treatment. He initially responded well to above measures, But on the , patient went into respiratory failure on telemetry floor and had to be upgraded to ICU. He was subsequently intubated and has had slow weaning. In the process, patient had a PEG tube placed for nutrition. Patient appears to have end-stage COPD. He has severe deconditioning due to length of stay in ICU and in the hospital. He was closely monitored with his labs for a long time. He has chronic kidney disease, stage 3 with acute kidney injury is stabilizing. Also, patient is more awake now and is able to mobilize all 4 extremities. He has still not ambulated. He needs further recuperation with physical therapy at the usp prior to going home. During his stay, his and children were given updates. He has cleared for discharge by Dr. Osorio. A total of 35 minutes was spent on discharge plan. Please see a [id number] documentation on [facility] for the day of discharge. All his medications and nutrition are given through the PEG tube at present. Ongoing speech therapy evaluations at the usp needs to be done to see if patient will be able to take orally. He is becoming more awake and responsive. [facility]
--- NOTE | 2017-02-05 10:41 | EKG ---
Test Reason : Blood Pressure : / mmHG Vent. Rate : 128 BPM Atrial Rate : 122 BPM P-R Int : 000 ms QRS Dur : 074 ms QT Int : 300 ms P-R-T Axes : 000 -86 075 degrees QTc Int : 438 ms Atrial fibrillation with rapid ventricular response with premature ventricular or aberrantly conducte d complexes Left axis deviation Pulmonary disease pattern Nonspecific ST abnormality , probably digitalis effect Abnormal ECG Confirmed by BRAULIO Camara, BETH ([id number]), supervising editor news reel SEBASTIEN DORAN ([id number]) on 02/05/2017 10:40:58 AM Referred By: Confirmed By:BETH RAMSEY M.D.
== END 2017-01-08 14:11 | DRG 208 ==
LOC: ERS 22:34 → 2SE 12-24 01:44 → T4-B 12-24 18:00 → IMCU/EMU 12-25 18:26 → CCU 12-25 19:54 → T4-B 01-03 14:54
PROVIDERS: ADMIT Internal Medicine; ATTEND Internal Medicine
PROC: 0BH17EZ Insertion of Endotracheal Airway into Trachea, Via Natural or Artificial Opening (ICD-10-PCS; principal; 2016-12-25)
PROC: 5A1945Z Respiratory Ventilation, 24-96 Consecutive Hours (ICD-10-PCS; 2016-12-25)
PROC: 0DH63UZ Insertion of Feeding Device into Stomach, Percutaneous Approach (ICD-10-PCS; 2017-01-01)
DX: J96.21 Acute and chronic respiratory failure with hypoxia (principal); G93.41 Metabolic encephalopathy; N17.9 Acute kidney failure, unspecified; E46 Unspecified protein-calorie malnutrition; E87.0 Hyperosmolality and hypernatremia; E87.2 Acidosis; R13.12 Dysphagia, oropharyngeal phase; I13.0 Hypertensive heart and chronic kidney disease with heart failure and stage 1 through stage 4 chronic kidney disease, or unspecified chronic kidney disease; I50.32 Chronic diastolic (congestive) heart failure; I48.92 Unspecified atrial flutter; I48.0 Paroxysmal atrial fibrillation; E11.22 Type 2 diabetes mellitus with diabetic chronic kidney disease; J44.1 Chronic obstructive pulmonary disease with (acute) exacerbation; E87.1 Hypo-osmolality and hyponatremia; N25.81 Secondary hyperparathyroidism of renal origin; J96.22 Acute and chronic respiratory failure with hypercapnia; R62.7 Adult failure to thrive; Z66 Do not resuscitate; K29.70 Gastritis, unspecified, without bleeding; Z79.01 Long term (current) use of anticoagulants; I25.10 Atherosclerotic heart disease of native coronary artery without angina pectoris; E78.5 Hyperlipidemia, unspecified; E11.65 Type 2 diabetes mellitus with hyperglycemia; N18.3 Chronic kidney disease, stage 3 (moderate); Z87.891 Personal history of nicotine dependence; Z96.41 Presence of insulin pump (external) (internal); E11.40 Type 2 diabetes mellitus with diabetic neuropathy, unspecified; K21.9 Gastro-esophageal reflux disease without esophagitis; M1A.9XX0 Chronic gout, unspecified, without tophus (tophi); E66.9 Obesity, unspecified; Z68.33 Body mass index [BMI] 33.0-33.9, adult; Z86.73 Personal history of transient ischemic attack (TIA), and cerebral infarction without residual deficits; I35.1 Nonrheumatic aortic (valve) insufficiency; D63.1 Anemia in chronic kidney disease; R53.81 Other malaise; Z88.1 Allergy status to other antibiotic agents; Z88.2 Allergy status to sulfonamides; Z88.8 Allergy status to other drugs, medicaments and biological substances
CPT/HCPCS: 36415; 36416; 71010; 74000; 80048; 80053; 82553; 82805; 83690; 83880; 84484; 85025; 85610; 85730; 93005; 93010; 93306; 94002; 94003; 94640; 94644; 96365; 96367; 96375; A4216; G8978-GP-CM; G8978-GP-CN; G8979-GP-CK; G8979-GP-CL; G8996-GN-CK; G8996-GN-CN; G8997-GN-CJ; G8997-GN-CL; J0360; J0692; J1644; J1650; J1815; J1940; J1956; J2001; J2060; J2250; J2270; J2704; J2920; J2930; J3010; J3475; J7050; J7506; J7611; J7620; J7626

== ENCOUNTER 2017-01-12 10:11 | Inpatient (IN) | payer MEDICARE ==
--- NOTE | 2017-01-12 11:11 | RAD ---
UPRIGHT PORTABLE CHEST ONE VIEW: History: 76-year-old male with dyspnea and shortness of breath. Comparison: 01-01-17 FINDINGS: There are new patchy interstitial and mild alveolar parenchymal changes in the mid lung zones bilater ally as well as the right lower lobe when compared to the most recent prior study of 01-01-17. Heart size is within normal limits. Monitor leads overlie the chest. IMPRESSION: New patchy interstitial and alveolar diffuse opacities in the perihilar and midlung zone and right lo wer lobe. Possibilities include some asymmetric bilateral edema versus developing bilateral pneumonia or pneumonitis. Short term follow up is suggested. POS: [facility]
--- NOTE | 2017-01-12 11:49 | CT ---
BRAIN CT WITHOUT IV CONTRAST: History: 76-year-old male with altered mental status. FINDINGS: Fairly marked atrophy and chronic white matter ischemic changes without focal mass or midline shift. No acute hemorrhage. Sinus mucosal disease noted involving the left maxillary and right and left sphe noid sinuses as well as some partial opacification of both mastoid air cell regions, these changes tamayo ve worsened when compared to the prior study of 11-17-12. IMPRESSION: Marked atrophy and chronic white matter ischemic changes without mass or bleed. Sinus mucosal changes and partial mastoid abnormal opacification worsening from prior study. POS: [facility]
[2017-01-12 11:57] LABS: #Eosinphils 0.2 thou/uL (0.0-0.7); #Lymphocytes 0.6 thou/uL (1.20-3.40); #Monocytes 0.5 thou/uL (0.11-0.59); #Neutrophils 11.8 thou/uL (1.40-6.50); %Basophils 0.1 % (0.0-1.0); %Eosinophils 1.4 % (0.0-10.0); %Lymphocytes 4.9 % (21.0-51.0); %Monocytes 3.6 % (0.0-10.0); Hematocrit 36.1 % (42.0-52.0); Mean Platelet Volume 10.6 fL (7.4-10.4); Red Blood Cell (RBC) Count 3.75 mill/uL (4.70-6.10); White Blood Cell (WBC) Count 13.1 thou/uL (4.8-10.8)
[2017-01-12 12:21] LABS: ALT (SGPT) 73 U/L (8-55); AST (SGOT) 28 U/L (5-34); Alkaline Phosphatase 113 U/L (40-150); Anion Gap 12 mmol/L (10-20); BUN (Urea Nitrogen) 69 mg/dL (8.4-25.7); Bilirubin, Total 0.8 mg/dL (0.2-1.2); CK (CPK) 166 U/L (30-200); Calc. Creatinine Clearance 0 mL/min (70-130); Calcium 8.8 mg/dL (7.8-10.44); Carbon Dioxide 33 mmol/L (23-31); Chloride 109 mmol/L (98-107); Estimated GFR-MDRD 32; Globulin 2.7 g/dL (2.4-3.5); Protein, Total 5.4 g/dL (5.8-8.1)
[2017-01-12] MEDS ORDERED: Furosemide 40 MG/4 ML VIAL ONE (13:18)
[2017-01-12] MEDS ORDERED: Piperacillin/Tazobactam 4.5 GM in Sodium Chloride 0.9% 100 ML IVPB SCH (14:00)
[2017-01-12] MEDS ORDERED: Vancomycin HCl 1 GM in Premix Bag 1 BAG IVPB SCH (14:00)
[2017-01-12] MEDS ORDERED: Dextrose 50% Abboject 50 ML SYRINGE SLOW IVP PRN (17:10)
[2017-01-12] MEDS ORDERED: Warfarin Sodium 5 MG TAB PO SCH (17:10)
[2017-01-12] MEDS ORDERED: Dextrose 5% in Water 1,000 ML IV PRN (17:10)
[2017-01-12] MEDS ORDERED: Ondansetron HCl/PF 4 MG/2 ML Vial IVP PRN (17:10)
[2017-01-12 17:52] LABS: Prothrombin Time 45.6 SEC (12.0-14.7)
[2017-01-12] MEDS ORDERED: methylPREDNISolone Sod Succ/PF 125 MG/2 ML VIAL IVP SCH (18:00)
[2017-01-12] MEDS: guaiFENesin ER 600 MG TAB PO SCH (18:33)
[2017-01-12] MEDS: Sodium Chloride 0.9% 1,000 ML IV SCH (18:37)
[2017-01-12] MEDS ORDERED: Furosemide 40 MG/4 ML VIAL SLOW IVP SCH (18:45)
[2017-01-12] MEDS: Mometasone/Formoterol 120 PUFF INHALER INH SCH (19:24)
[2017-01-12] MEDS: Cefepime 1 GM, Admixture Fee 1 EACH in Sterile Water 10 ML SLOW IVP SCH (20:01)
[2017-01-12] MEDS: Linezolid 600 MG in Premix Bag 1 BAG IVPB SCH (20:02)
[2017-01-12] MEDS: Nebivolol HCl 5 MG TAB PO SCH (20:06)
[2017-01-12] MEDS: Famotidine/PF 20 mg/2ml Vial SLOW IVP SCH (20:14)
[2017-01-12] MEDS ORDERED: Cefepime 1 GM in Sodium Chloride 0.9% 100 ML IVPB SCH ×2 (21:00)
[2017-01-12] MEDS: Insulin Detemir 100 UNITS/ML 40 UNITS in Pre-Filled Syringe 1 EACH SC SCH (22:07)
[2017-01-13] MEDS: guaiFENesin ER 600 MG TAB PO SCH ×5 (00:16→23:42)
[2017-01-13 05:13] LABS: #Lymphocytes 0.4 thou/uL (1.20-3.40); #Monocytes 0.1 thou/uL (0.11-0.59); #Neutrophils 10.9 thou/uL (1.40-6.50); %Basophils 0.2 % (0.0-1.0); %Eosinophils 0.2 % (0.0-10.0); %Lymphocytes 3.1 % (21.0-51.0); %Monocytes 1.1 % (0.0-10.0); Hematocrit 36.1 % (42.0-52.0); Mean Platelet Volume 9.8 fL (7.4-10.4); Red Blood Cell (RBC) Count 3.72 mill/uL (4.70-6.10); White Blood Cell (WBC) Count 11.5 thou/uL (4.8-10.8)
[2017-01-13 05:58] LABS: Anion Gap 12 mmol/L (10-20); BUN (Urea Nitrogen) 64 mg/dL (8.4-25.7); Calc. Creatinine Clearance 47 mL/min (70-130); Calcium 8.7 mg/dL (7.8-10.44); Carbon Dioxide 31 mmol/L (23-31); Chloride 113 mmol/L (98-107); Estimated GFR-MDRD 37
[2017-01-13] MEDS ORDERED: Furosemide 40 MG/4 ML VIAL SLOW IVP SCH (06:00)
--- NOTE | 2017-01-13 06:07 | CON ---
DATE OF CONSULTATION: 01/12/2017 HISTORY OF PRESENT ILLNESS: Mr. Edmundo Joyner is a 76-year-old gentleman who is well known to me who was supposed to see us in the office today. Unfortunately, he presented to the ER, his is at th e bedside who states the patient says he does not want to be intubated, though he wants CPR. Apparen tly, he has been there for 4 days. Physical therapy was just initiated yesterday. He has not been s een by a physician and became progressively more short of breath, fever, chills and cough. He became confused. X-ray now shows extensive bilateral infiltrate. He has a PEG in place. He is unable to swallow, apparently ever since he has had nasal intubation. The patient has known history of atrial fibrillation and has been on Coumadin for a period of time, b ut his EF has been normal. Additionally, now, he has had worsening renal function, probably aggravated with some diuretics. The patient has severe end-stage COPD, and on a regular day barely able to walk a couple of hundred f eet without getting markedly short of breath. PAST MEDICAL HISTORY: COPD, renal failure, diastolic dysfunction, severe deconditioning, diabetes, r eflux, SVT, obesity and previous tobacco abuse. ALLERGIES: SULFA and CLINDAMYCIN. RECENT DISCHARGE MEDICATIONS: Includes low dose prednisone, Coumadin, Spiriva, Protonix, insulin, Ze tia. REVIEW OF SYSTEMS: Otherwise, difficult to obtain. PHYSICAL EXAMINATION: GENERAL: The patient is awake, responsive and lethargic. Appears to be dehydrated. Tongue is dry. VITAL SIGNS: Sats are 93%, pulse 83 and blood pressure 160/86. CHEST: Reveals decreased breath sounds. No wheezing. CARDIAC: Normal S1 and S2. No gallops. LABORATORY DATA: White count 13,000, hemoglobin and hematocrit 11 and 36, platelet count 148. Elect rolytes are normal. Creatinine is 2, BUN is 69. BNP is 165. IMPRESSION: 1. Bilateral bronchopneumonia, probably aspiration. 2. Dysphagia. 3. Severe deconditioning. 4. by CT. 5. Encephalopathy. 6. Severe electrolyte imbalance. PLAN: The patient is dehydrated. I suggest a liter of normal saline and subsequently switch over to half-normal saline. Maxipime, Zyvox and steroids have been initiated according to the nebulizer too atments. Do not intubate. We will follow. Thirty minutes critical care time.
[2017-01-13] MEDS: Mometasone/Formoterol 120 PUFF INHALER INH SCH ×2 (07:30→18:42)
--- NOTE | 2017-01-13 08:52 | PRG ---
DATE OF SERVICE: 01/13/2017 This morning he is still encephalopathic. PHYSICAL EXAMINATION: VITAL SIGNS: Blood pressure is 138/70, sats are 97 on 4 liters, respirations 20, temperature 97. CHEST: Chest revealed decreased breath sounds, bilateral rhonchi and minimal wheezing. CARDIAC: Normal S1-S2. No gallops. ABDOMEN: Soft. No masses. LABORATORY: White count 11,000, H&H 11 and 36, platelet count 162. INR is 4.6. Sodium 152, BUN and creatinine 64 and 1.79. Troponin was normal. X-ray shows bilateral infiltrates. IMPRESSION: 1. Probably respiratory failure secondary to aspiration pneumonia. 2. Severe deconditioning. 3. Supraventricular tachycardia. PLAN: Continue slow hydration and avoid diuretics. He appears to be prerenal. Aggressive PT. Steroids, nebulizer treatments. Will deescalate antibiotics once we get the cultures back.
--- NOTE | 2017-01-13 09:37 | RAD ---
ONE VIEW CHEST: HISTORY: Interstitial infiltrates, right worse than left. FINDINGS: AP view chest is obtained on 01/13/17. Comparison is made to previous exam from 01/12/17. AP view chest demonstrates EKG leads seen over the chest. Pulmonary vascular congestion is seen. Di ffuse interstitial markings are seen throughout the lungs. The markings are slightly more prominent than on the previous day's exam. IMPRESSION: Pulmonary vascular congestion and diffuse interstitial markings. Otherwise, unremarkable AP view [address]. POS: [facility]
[2017-01-13] MEDS: Cefepime 1 GM, Admixture Fee 1 EACH in Sterile Water 10 ML SLOW IVP SCH ×2 (09:50→20:33)
[2017-01-13] MEDS: Linezolid 600 MG in Premix Bag 1 BAG IVPB SCH ×2 (10:03→21:44)
[2017-01-13] MEDS: Pantoprazole 40 MG GRANULES PACKET PER TUBE SCH (10:05)
[2017-01-13] MEDS: Insulin Detemir 100 UNITS/ML 40 UNITS in Pre-Filled Syringe 1 EACH SC SCH ×2 (10:05→21:55)
[2017-01-13] MEDS: Sodium Chloride 0.45% 1,000 ML IV SCH ×2 (10:21→23:50)
[2017-01-13] MEDS: Sodium Chloride 0.9% 1,000 ML IV SCH (11:14)
--- NOTE | 2017-01-13 15:03 | PDOC.PN ---
- Subjective Encounter Start Date: 01/13/17 Encounter Start Time: 07:40 Pt seen for followup re: pneumonia. Nonverbal, unable to provide history or ROS. - Objective Resuscitation Status: Resuscitation Status DNI:No Intubation MAR Reviewed: Yes Vital Signs & Weight: Vital Signs (12 hours) Temp Pulse Pulse Pulse Resp BP BP 01/13/17 13:54 94 20 01/13/17 11:30 98.2 F 84 20 01/13/17 10:08 74 20 01/13/17 08:13 91 83 132/65 132/69 01/13/17 08:00 97.5 F L 79 20 01/13/17 07:30 77 20 01/13/17 07:29 77 20 01/13/17 07:24 97.5 F L 79 20 01/13/17 04:00 98.5 F 73 20 01/13/17 03:50 73 18 BP Pulse Ox Pulse Ox Pulse Ox 01/13/17 13:54 93 L 01/13/17 11:30 133/59 L 91 L 01/13/17 10:08 93 L 01/13/17 08:13 87 L 88 L 01/13/17 08:00 93 L 01/13/17 07:30 97 01/13/17 07:29 94 L 01/13/17 07:24 138/79 93 L 01/13/17 04:00 136/61 100 01/13/17 03:50 93 L Weight Admit Weight 217 lb 9.6 oz Weight 217 lb 9.6 oz Result Diagrams: 01/13/17 04:46 01/13/17 04:46 Additional Labs: Accuchecks 01/13/17 01/12/17 01/12/17 11:55 21:01 17:15 POC Glucose 234 H 150 H 202 H EKG Reviewed by me: Yes (Tele: 32 beat V tach) Phys Exam - Physical Examination Constitutional: NAD HEENT: moist MMs Neck: supple Gideon crackles+ Cardiovascular: RRR Gastrointestinal: soft, non-tender Musculoskeletal: pulses present Neurological: moves all 4 limbs Psychiatric: normal affect Skin: no rash Dx/Plan (1) Pneumonia Code(s): J18.9 - PNEUMONIA, UNSPECIFIED ORGANISM Status: Acute (2) COPD (chronic obstructive pulmonary disease) Status: Chronic Qualifiers: COPD type: COPD with acute exacerbation Qualified Code(s): J44.1 - Chronic obstructive pulmonary disease with (acute) exacerbation (3) Chronic kidney disease (CKD) Code(s): N18.9 - CHRONIC KIDNEY DISEASE, UNSPECIFIED Status: Chronic Qualifiers: Chronic kidney disease stage: stage 3 (moderate) Qualified Code(s): N18.3 - Chronic kidney disease, stage 3 (moderate) (4) Diabetes mellitus, insulin dependent (IDDM), controlled Code(s): E11.9 - TYPE 2 DIABETES MELLITUS WITHOUT COMPLICATIONS; Z79.4 - BUN PANNER (CURRENT) USE OF INSULIN Status: Chronic (5) Diabetic neuropathy Code(s): E11.40 - TYPE 2 DIABETES MELLITUS WITH DIABETIC NEUROPATHY, UNSP Status: Chronic (6) Dyslipidemia Code(s): E78.5 - HYPERLIPIDEMIA, UNSPECIFIED Status: Chronic (7) GERD (gastroesophageal reflux disease) Code(s): K21.9 - GASTRO-ESOPHAGEAL REFLUX DISEASE WITHOUT ESOPHAGITIS Status: Chronic (8) Gout Code(s): M10.9 - GOUT, UNSPECIFIED Status: Chronic (9) HTN (hypertension) Code(s): I10 - ESSENTIAL (PRIMARY) HYPERTENSION Status: Chronic Qualifiers: Hypertension type: essential hypertension Qualified Code(s): I10 - Essential (primary) hypertension (10) Obesity (BMI 30.0-34.9) Code(s): E66.9 - OBESITY, UNSPECIFIED Status: Chronic (11) Hypernatremia Code(s): E87.0 - HYPEROSMOLALITY AND HYPERNATREMIA Status: Chronic Comment: resolving, free water via peg - Plan plan discussed w/ family, continue antibiotics, PT/OT, speech therapy * . Continue levofloxacin, linezolid and cefepime. IV fluids for dehydration. Await dietitian recs re: tube feeds. Review of Systems - Medications/Allergies Allergies/Adverse Reactions: Allergies Allergy/AdvReac Type Severity Reaction Status Date / Time exenatide [From Byetta] Allergy Severe Verified 11/17/12 04:50 sitagliptin phosphate Allergy Severe Verified 11/17/12 04:50 [From Januvia] clindamycin Allergy Intermediate Swollen Verified 11/17/12 04:48 Lips erythromycin base Allergy Intermediate Swollen Verified 11/17/12 04:48 [Erythromycin Base] Lips hydrocodone Allergy Intermediate Verified 11/17/12 04:49 Sulfa (Sulfonamide Allergy Intermediate Swollen Verified 11/17/12 04:49 Antibiotics) Lips phenol Allergy Verified 11/17/12 04:50 propoxyphene napsylate Allergy Verified 11/17/12 04:50 [From [facility]-N 100] Medications: Current Medications Albuterol/Ipratropium (Duoneb) 3 ml NEB [id number] [facility] Last Admin: 01/13/17 13:54 Dose: 3 ml Aspirin (Aspirin Chewable) 81 mg PO DAILY [facility] Last Admin: 01/13/17 10:06 Dose: 81 mg Dextrose/Water (Dextrose 50%) 25 gm SLOW IVP PRN PRN PRN Reason: Hypoglycemia Diltiazem HCl (Cardizem) 30 mg PER TUBE TID [facility] Last Admin: 01/13/17 10:06 Dose: 30 mg Famotidine (Pepcid) 20 mg SLOW IVP Q24HR [facility] Last Admin: 01/12/17 20:14 Dose: 20 mg Glucagon (Glucagon) 1 mg IM PRN PRN PRN Reason: Hypoglycemia Guaifenesin (Mucinex) 600 mg PO Q6HR [facility] Last Admin: 01/13/17 12:51 Dose: 600 mg Linezolid 600 mg/ Device 300 mls @ 150 mls/hr IVPB Q12HR [facility] Last Admin: 01/13/17 10:03 Dose: 300 mls Dextrose/Water (D5w) 1,000 mls @ 0 mls/hr IV .Q0M PRN; As Directed PRN Reason: Hypoglycemia Insulin Detemir 40 units/ (Miscellaneous Medication) 0.4 mls @ 0 mls/hr SC BID [facility] Last Admin: 01/13/17 10:05 Dose: Not Given Levofloxacin 750 mg/ Device 150 mls @ 100 mls/hr IVPB Q2D [facility] Last Admin: 01/12/17 18:34 Dose: Not Given Cefepime HCl 1 gm/Miscellaneous Medication 1 each/ Sterile Water 10 mls @ 120 mls/hr SLOW IVP 0800,2000 [facility] Last Admin: 01/13/17 09:50 Dose: 10 mls Sodium Chloride (1/2 Normal Saline) 1,000 mls @ 75 mls/hr IV .[id number] [facility] Last Admin: 01/13/17 10:21 Dose: 1,000 mls Insulin Human Lispro (Humalog) 0 units SC .AGGRESSIVE SLIDING PRN PRN Reason: Aggressive Correctional Scale Methylprednisolone Sodium Succinate (Solu-Medrol) 40 mg IVP BID [facility] Last Admin: 01/13/17 10:05 Dose: 40 mg Mometasone Furoate/Formoterol Fumar (Dulera 200 Mcg/5 Mcg Inhaler) 2 puff INH BID-RT [facility] Last Admin: 01/13/17 07:30 Dose: 2 puff Nebivolol (Bystolic) 5 mg PO HS [facility] Last Admin: 01/12/17 20:06 Dose: 5 mg Ondansetron HCl (Zofran) 4 mg IVP Q6H PRN PRN Reason: Nausea/Vomiting Pantoprazole Sodium (Protonix) 40 mg PER TUBE DAILY [facility] Last Admin: 01/13/17 10:05 Dose: 40 mg Sodium Chloride (Flush - Normal Saline) 10 ml IVF Q12HR [facility] Last Admin: 01/13/17 10:05 Dose: 10 ml Sodium Chloride (Flush - Normal Saline) 10 ml IVF PRN PRN PRN Reason: Saline Flush
--- NOTE | 2017-01-13 20:43 | CON ---
DATE OF CONSULTATION: 01/13/2017 INDICATION FOR CONSULTATION: An elderly gentleman with bilateral pneumonia with a history of atrial fibrillation and mental status changes. HISTORY OF PRESENT ILLNESS: This is a very unfortunate 76-year-old gentleman who had presented recen tly with COPD exacerbation and was actually in the hospital about 3 weeks ago due to respiratory sync ytial virus. Since that time, his family says he has not been mentally the same. He was in the hosp ital for 2 weeks. He was then discharged to a fpc. He was in fpc for about 4 days and then again presented back to the hospital again being more confused and not doing well and was f ound to have again pneumonia. He has had a history of intermittent atrial fibrillation in the past. He has undergone ablation four times and has actually been doing quite well since that time and has remained in sinus rhythm. Yesterday evening, he had what appears to be some an idioventricular rhyth m or IVCD, did not appear to be ventricular tachycardia, felt to be by the hospitalist service this m ay be ventricular tachycardia, but appears to be very slow for ventricular tachycardia. The heart ra te was approximately about 80-90 beats a minute, which was most likely not ventricular fibrillation, but it may be converted to a bundle branch block, but at this time, there have been no significant ch anges. He does remain in sinus rhythm and has PACs. He does not offer up any complaints per se, but he is completely what appears to be demented has had a previous stroke. He is unable to communicat e. He just moaned during the entire visit. His is at bedside. He tries to answer some of the questions, but otherwise he seems to be doing relatively well from a cardiac standpoint except for th e rhythm yesterday evening with the abnormal beats which did not appear to be ventricular tachycardia . He does have occasional PVCs on admission. His EKG did show a sinus rhythm and has remained in si nus rhythm. PAST MEDICAL HISTORY: Significant for significant COPD, renal failure, diabetes, and history of atri al fibrillation. He has undergone ablations. Prior to admission, his medications included Lasix, Coumadin, calcium, aspirin, allopurinol, Spiriva, Symbicort, DuoNebs, and insulin. SOCIAL HISTORY: He is . He has children who are alive and well. He has no alcohol or tobacc o abuse. REVIEW OF SYSTEMS: Not obtainable, please refer to the notes already dictated by the hospitalist gil wells. MEDICATIONS: At this time include, 1. Aspirin 81 mg daily. 2. Cefepime. 3. Diltiazem 30 mg t.i.d. p.o. 4. Pepcid 20 mg IV daily. 5. Lasix 40 mg IV. 6. He is also on guaifenesin as needed. 7. Insulin on a sliding scale. 8. He is on albuterol treatments. 9. He is on levofloxacin. 10. . 11. Linezolid. 12. He is on prednisone, Bystolic, and Protonix. ALLERGIES: He is allergic to multiple medications, please refer to the list which is in the chart. He is allergic to SITAGLIPTIN, PHOSPHATE, CLINDAMYCIN, and EXENATIDE. PHYSICAL EXAMINATION: GENERAL: Reveals an elderly gentleman who is moaning during the entire evaluation. He is awake, how ever, he apparently seems to be hallucinating, trying to grab at things in the air. VITAL SIGNS: His blood pressure is 132/59, O2 saturation 93%, respiratory rates in the 20s, heart ra ritika in the 80-90. He is afebrile at this time. HEENT: Shows the head to be normocephalic, atraumatic. His carotid pulses are present. CHEST: He had scattered rhonchi. CARDIOVASCULAR: Regular rate and rhythm. There is no S3 or S4 noted. I cannot hear any significant murmurs, bruits, no heaves. ABDOMEN: Obese, he has positive bowel sounds normal, no obvious tenderness is noted. No masses were noted. EXTREMITIES: Showed no significant clubbing, cyanosis or edema. Pedal pulses are present but are sl ightly decreased. NEUROLOGIC: The patient obviously appears to be confused and may be residual from a CVA. SKIN: Warm and dry. NEUROLOGIC: The patient does not communicate. LABORATORY DATA: Shows a white blood cell count of 11.5, previously was 13.1 on admission. Hemoglob in 11.4, platelet count 162,000. His INR was elevated at 4.6 yesterday, is down now to 4.0. His sod ium was 152, chloride was 113, BUN was 64, creatinine was 179, blood sugar was 146, repeat was 234, t roponin I was 0.13 and BNP was 156. IMPRESSION: 1. Elderly gentleman with bilateral pneumonia for which he is being treated with antibiotics and joann roids. 2. What appears to be dehydration with hypernatremia and renal insufficiency which most likely is as sociated with his dehydration. However, yesterday his creatinine was 2.05 and now had to be given IV fluids, is down to 1.79. He does have chronic kidney disease. His creatinine has been baseline in the 1.8 to 2.4 range. 3. Mental status changes. The family says he actually had good mentation until 3 weeks ago when he struggled not to have a tube placed and since that time he has not been the same according to the fam luis. 4. History of atrial fibrillation. He remains in sinus rhythm at this time. 5. Abnormal rhythm. We will continue to follow this. Would correct his electrolytes. The potassiu m is good at 4.0, we will just continue to watch the patient, did not feel this is any significant ar rhythmia at this time, the patient is a [id number], but the family wishes all other means to be pursued. Overall, from a cardiac standpoint at this time, I do not see any significant indication th at we need to proceed with any further workup or changes in his medications. Further care of the pat ient will be by Dr. Smith when he sees the patient tomorrow. Note that he did have an echocardiog jalen in 12/24/2016 less than a month ago which showed a normal ejection fraction with mild enlargement of the right ventricle and left atrium was also mildly dilated. The ejection fraction was 60%-65%. He did not have any significant stenotic or regurgitation murmurs . At this time, I have reviewed his medications and I would agree with the present management.
[2017-01-13] MEDS: Famotidine/PF 20 mg/2ml Vial SLOW IVP SCH (21:44)
[2017-01-13] MEDS: Nebivolol HCl 5 MG TAB PO SCH (21:44)
--- NOTE | 2017-01-13 22:10 | HP ---
DATE OF ADMISSION: 01/12/2017 TIME OF SERVICE: 1330 hours. CHIEF COMPLAINT: Shortness of breath and low oxygen. HISTORY OF PRESENT ILLNESS: Mr. Joyner is a 76-year-old white male who is well known from a recent hospitalization. He was here from mid December until 2016, at which time he was discharged to [facility] for group home rehabilitation. The patient was admitted during that time for acute exacerbation of COPD, acute on chronic respiratory failure, and he was discharged to the custodial on Omnicef until 01/11/2017 and prednisone taper which he is still taking. Other past history is significant for a stress test that was normal back in that showed normal valve function, normal systolic and diastolic function, and 72% ejection fraction. He has had an echo on 12/26/2016 that showed an EF of 60%-65% with normal valves, but there is some mention in the chart of possible diastolic dysfunction. The patient presents to the emergency department today from the custodial via EMS for low oxygen levels. Per the family, the patient is supposed to be on 4 liters nasal cannula at the custodial; however, on arrival here at the emergency department, he was 90% on 3 liters and 99% on 4 liters. It is unsure whether he was on his oxygen during this "hypoxic" spell at the custodial. There have been no fevers or chills. The patient has had no large change in his breathing. Per the family, the mental status is about the same it has been since he left the hospital 4 days ago. He has had no chest pain, and no acute events. The remainder of his chart was reviewed, I did discuss at length a code status with his and daughter who were present. PAST MEDICAL HISTORY: 1. COPD with acute exacerbation, 12/2016. 2. Chronic respiratory failure. 3. Hypertension. 4. Hyperlipidemia. 5. CKD 3. 6. Diabetes mellitus type 2. 7. Controlled atrial flutter/fibrillation. PAST MEDICAL HISTORY: Reviewed. Please see the admission note from last hospital stay. HOME MEDICATIONS: Currently, 1. Allopurinol 50 mg daily. 2. Aspirin 81 mg daily. 3. Atorvastatin 80 mg p.o. at bedtime. 4. Symbicort 2 puffs p.o. b.i.d. 5. Calcitriol 0.25 mcg daily. 6. Vitamin D3 2000 units daily. 7. Cardizem 30 mg per PEG tube t.i.d. 8. Zetia 5 mg daily. 9. Iron sulfate 325 mg daily. 10. Lasix 40 mg daily. 11. Lantus or Levemir 40 units subcu q.a.m. and 60 units subcu q.p.m. 12. Neurontin 100 mg p.o. t.i.d. 13. DuoNebs q.i.d. scheduled. 14. Bystolic 5 mg p.o. at bedtime 15. Protonix 40 mg daily. 16. Prednisone taper. 17. Spiriva 18 mcg inhaled daily. 18. Coumadin 5 mg daily. 19. The patient is on tube feeds currently, Jevity 65 mL per hour. He is on a different tube feed here. ALLERGIES: 1. EXANATROL. 2. JANUVIA, CLINDAMYCIN, ERYTHROMYCIN all cause lip swelling. 3. HYDROCODONE causes him to be altered. 4. PROPOXYPHENE. 5. PHENOL. FAMILY HISTORY: Negative for clotting or bleeding disorder, no immune dysfunction. SOCIAL HISTORY: Significant for being a resident currently in the [facility] but has been living at home. He, prior to his last admission, was able to walk, take care of his daily living, and talk normally. He is negative for habits x3. His is at the bedside. She is his surrogate medical decision maker. The patient does not want to be intubated nor does he want BiPAP. He does state CPR and pressors and chemical codes are okay. REVIEW OF SYSTEMS: A 10-point review of systems was performed, negative for all systems except as stated as per HPI. PHYSICAL EXAMINATION: VITAL SIGNS: He is afebrile, temperature here was 99.2, pulse 92, blood pressure 143/77, respiratory rate 20, satting 99% on 4 liters, 90% on 3 liters. GENERAL: He is awake. He is alert. He cannot determine how oriented he is. He is unable to tell me at present where he is. HEENT: He is normocephalic and atraumatic. His pupils are 2-3 mm equal, round and reactive to light bilaterally, the eyes are open and track normally. His mucous membranes are dry. He has no oral lesions, no thrush. NECK: Supple. He has no lymphadenopathy, no JVD, no thyromegaly. He has normal carotid upstrokes without bruits. LUNGS: Coarse rales bilaterally, right more than left. He has a prolonged expiratory phase and is groaning with his expiration. He is unable to stop this when requested. He has bilateral rhonchi present. There is no wheezing heard. CARDIOVASCULAR: He is irregularly irregular and slightly tachycardic. Has normal S1, S2. I do not hear any murmurs. ABDOMEN: Obese. It is distended and slightly tympanitic. It is nontender. There is no rebound, rigidity, or guarding. He has hypoactive bowel sounds present in all 4 quadrants. EXTREMITIES: Show no cyanosis, no clubbing. Trace bilateral pedal edema. He has 1+ dorsalis pedis and posterior tibial pulse bilaterally. I cannot palpate popliteal pulses. He has no calf tenderness. SKIN: Otherwise, warm, moist, and well perfused. PEG site in the abdomen is clean, dry, and intact. NEUROLOGIC: Cranial nerves II through XII appear to be grossly intact. He is able to move all 4 of his extremities but is profoundly weak. He has no focal deficits identifiable. The patient does not close his mouth and his speech is mostly unintelligible and groans with each expiration. He is unable to stop even when asked repeatedly. Apparently, he has been like this since he left the hospital since the last hospital stay. LABORATORY DATA: Sodium 150, potassium 2.8, chloride 109, bicarbonate 33, BUN 69, creatinine 2.05, which is from his baseline, calcium is 8.8, glucose is 405. Liver functions are fairly normal with an ALT elevated at 73 and albumin low at 2.7, total protein of 5.9. CBC showed a white count of 13.1, which is slightly improved from his last day, he has 90% granulocytes, 5% lymphocytes, hemoglobin 11.5, hematocrit of 36.1, and platelet count of 442,000. A brain CT showed marked atrophy and increased mastoid opacification from prior studies. Chest x-ray showed perihilar mid lung and right lower lobe patchy opacities that are new from his films about a week ago. ASSESSMENT AND PLAN: 1. Suspected healthcare-associated pneumonia: The patient was discharged 4 days ago, back with increased work of breathing and hypoxia. White blood cell count is okay. I expected it to be abnormal due to the steroids he is on. I am unsure whether this is truly pneumonia versus heart failure. We will give Lasix, start on cefepime plus levofloxacin, and I do not think this is methicillin-resistant Staphylococcus aureus. We will place the patient in the IMCU for monitoring tonight and put him back on IV steroids, will use scheduled DuoNebs with p.r.n. albuterol nebs. 2. History of chronic obstructive pulmonary disease as above. 3. History of chronic respiratory failure, hypoxic. He is reportedly more hypoxic now than normal, though his family refused that. We will use oxygen to keep his sats 90% or better. 4. Hypertension. We will continue home medications. 5. Hyperlipidemia on atorvastatin. 6. Chronic kidney disease 3. Creatinine stable in the high 1s to low 2 range. We will continue to monitor. 7. Diabetes mellitus type 2 with hyperglycemia: We will continue his Lantus and will add in sliding scale insulin for correction. His sugars are higher than normal due to his steroids. I will control atrial flutter on Cardizem t.i.d. per PEG tube. We will continue this. 7. [id number] protein-calorie malnutrition. The patient's albumin is low at 2.7. I suspect we will restart his tube feeds at his prior formula here , 55 mL per hour. They think it might have been Jevity 1.2. We will follow up on nutrition recommendations. MTDD
--- NOTE | 2017-01-14 01:41 | CON ---
DATE OF CONSULTATION: 01/13/2017 CHIEF COMPLAINT: Leakage from the PEG tube site. HISTORY OF PRESENT ILLNESS: Mr. Joyner is a 76-year-old man, who was readmitted yesterday through the emergency room from rehab with shortness of breath. He was found to have bilateral pneumonia. He tamayo s had confusion and his is at the bedside now. He has had no vomiting. No melena or hematochez ia noted. GI was consulted due to some leakage from the PEG site and some mucousy material reported from the PEG site. Mr. Joyner was seen by my colleague Dr. Chandler Song and underwent gastrostomy tube p lacement on 01/01/2017 for dysphagia, malnutrition and severe deconditioning. He was noted to have i schemic appearing gastritis in the gastric fundus. The PEG tube placement itself was uneventful. Th e patient had been tolerating tube feeds as far as I am aware. PAST MEDICAL HISTORY: COPD; history of recurrent atrial flutter, status post ablation; diabetes nikky itus, on insulin pump; gastroesophageal reflux disease; chronic kidney disease; hypertension; hyperli pidemia; gout; anemia of chronic kidney disease; TIA; aortic regurgitation and diastolic heart failur e. FAMILY HISTORY: Positive for colon cancer in his father. SOCIAL HISTORY: He quit smoking years ago. No alcohol or drugs. ALLERGIES: CLINDAMYCIN, BYETTA, SITAGLIPTIN and SULFA. CURRENT MEDICATIONS: Include aspirin, cefepime, diltiazem, famotidine, insulin, levofloxacin, linezo lid, methylprednisolone, Dulera inhaler, nebivolol and pantoprazole. REVIEW OF SYSTEMS: Limited due to his altered mental status. He does answer some questions appropri ately. He is in no pain and he does not have tenderness around the abdomen. PHYSICAL EXAMINATION: VITAL SIGNS: Temperature 97.0, pulse 73, oxygen saturation 91%, blood pressure 118/57. GENERAL: He is in no acute distress. He is awake and responsive. HEENT: Eyes have no scleral icterus. Oropharynx is clear without lesions. NECK: No cervical or supraclavicular lymphadenopathy. LUNGS: Have crackles bilaterally. HEART: Regular rate and rhythm. ABDOMEN: Soft and nontender. The gastrostomy site appears healthy. There is mild erythema within a few millimeters diameter around the PEG site, but it does not appear infected. The skin is not tigh t around the gastrostomy tube. There is some green staining on the gauze around that site, but no ac tive exudate could be expressed from the gastrostomy site when the skin around the tube was palpated. EXTREMITIES: 1+ lower extremity edema. LABORATORY DATA: White blood cell count 11.5, hemoglobin 11.4, platelets 162. INR 4.0. Creatinine 1.79. IMPRESSION: Leakage from the gastrostomy site. He has had minimal leakage today, but has not been r eceiving feeds today. The skin around the gastrostomy site appears healthy. There is no evidence of infection by physical exam. The skin is not tight around the tube; however, and may not heal well g iven his limited nutritional status. I would expect that he will continue to have some leakage from the gastrostomy site. RECOMMENDATIONS: 1. Continue to change the dressings frequently and give local skin care. 2. He is on broad spectrum antibiotics at this point; however, the tube itself does not appear infec glynn. He is on antibiotics for bilateral pneumonia. 3. Restart gastrostomy tube feeds now. No further intervention appears to be indicated at this poin t. 4. I will follow up as needed. Please call if GI can be of assistance.
[2017-01-14 05:09] LABS: #Lymphocytes 0.5 thou/uL (1.20-3.40); #Monocytes 0.3 thou/uL (0.11-0.59); #Neutrophils 13.4 thou/uL (1.40-6.50); %Basophils 0.2 % (0.0-1.0); %Lymphocytes 3.3 % (21.0-51.0); Mean Platelet Volume 9.2 fL (7.4-10.4); Red Blood Cell (RBC) Count 3.49 mill/uL (4.70-6.10); White Blood Cell (WBC) Count 14.2 thou/uL (4.8-10.8)
[2017-01-14 05:37] LABS: Anion Gap 9 mmol/L (10-20); BUN (Urea Nitrogen) 69 mg/dL (8.4-25.7); Calc. Creatinine Clearance 40 mL/min (70-130); Calcium 8.4 mg/dL (7.8-10.44); Carbon Dioxide 29 mmol/L (23-31); Chloride 114 mmol/L (98-107); Estimated GFR-MDRD 30
[2017-01-14] MEDS: guaiFENesin ER 600 MG TAB PO SCH ×3 (07:00→17:50)
[2017-01-14] MEDS: Cefepime 1 GM, Admixture Fee 1 EACH in Sterile Water 10 ML SLOW IVP SCH ×2 (07:45→21:22)
[2017-01-14] MEDS: Insulin Detemir 100 UNITS/ML 40 UNITS in Pre-Filled Syringe 1 EACH SC SCH ×2 (07:46→21:40)
[2017-01-14] MEDS: Pantoprazole 40 MG GRANULES PACKET PER TUBE SCH (07:46)
[2017-01-14] MEDS: Linezolid 600 MG in Premix Bag 1 BAG IVPB SCH ×2 (07:47→21:33)
--- NOTE | 2017-01-14 08:22 | RAD ---
PORTABLE CHEST 1 VIEW: DATE: 01/14/17. TIME: 3:46 a.m. HISTORY: Respiratory distress. FINDINGS: Comparison is made to the exam from the previous day. The heart size is prominent but stable. Pulmonary vascular congestion and prominent interstitial mar kings are again seen. No lobar consolidation, pneumothorax, or large effusions are identified. POS: [facility]
[2017-01-14] MEDS: Mometasone/Formoterol 120 PUFF INHALER INH SCH (09:06)
--- NOTE | 2017-01-14 11:44 | PRG ---
DATE OF SERVICE: 01/14/2017 SUBJECTIVE: Ar this morning remains encephalopathic, confused, he is not sleeping. PHYSICAL EXAMINATION: VITAL SIGNS: His sats are 97% on 4 liters, temperature is 98, respirations 18, pulse 66, blood press ure 120/62. Difficult to get his I's and O's as he has a diaper. CHEST: Reveals decreased breath sounds with no wheezing. CARDIAC: Normal S1 and S2. No gallops. ABDOMEN: Soft. No masses. LABORATORY DATA: White count 14,000, hemoglobin and hematocrit 10 and 30, platelet count normal. Cr eatinine is 2.146, BUN is 69. IMPRESSION: 1. Acute on chronic renal failure. 2. End-stage chronic obstructive pulmonary disease. 3. Encephalopathy. 4. Pneumonia, much improved. PLAN: Continue to hold diuretics. Continue slow hydration. Continue antibiotics as prescribed. St art him on low dose risperidone. Deescalate antibiotics. We will follow. One-half hour critical care time.
[2017-01-14] MEDS: risperiDONE 0.25 MG TAB PO SCH ×2 (12:11→21:34)
[2017-01-14] MEDS: Sodium Chloride 0.45% 1,000 ML IV SCH ×2 (12:14→21:25)
--- NOTE | 2017-01-14 12:35 | PDOC.PN ---
- Subjective Encounter Start Date: 01/14/17 Encounter Start Time: 12:30 Subjective: Patient agitated, confused. Been this way ever since first hospitalization. -: Worse at night. Not sleeping. Continued increased WOB. O2 sat ok on -: 4L oxygen. - Objective Resuscitation Status: Resuscitation Status DNI:No Intubation MAR Reviewed: Yes Vital Signs & Weight: Vital Signs (12 hours) Temp Pulse Resp BP Pulse Ox 01/14/17 11:07 78 24 H 96 01/14/17 11:00 97.8 F 77 18 132/60 100 01/14/17 09:06 97 01/14/17 09:04 67 20 97 01/14/17 07:00 98.0 F 67 22 H 125/62 97 01/14/17 04:00 96.9 F L 83 24 H 123/69 94 L 01/14/17 02:25 77 22 H 94 L 01/14/17 01:20 94 L Weight Admit Weight 217 lb 9.6 oz Weight 217 lb 4.8 oz I&O: 01/13/17 01/14/17 01/15/17 06:59 06:59 06:59 Intake Total 2425 50 Balance 2425 50 Result Diagrams: 01/14/17 04:38 01/14/17 04:38 Additional Labs: Accuchecks 01/14/17 01/14/17 01/13/17 12:14 05:48 23:55 POC Glucose 317 H 294 H 361 H 01/13/17 18:06 POC Glucose 297 H Phys Exam - Physical Examination mild agitation currently HEENT: moist MMs bilateral wheezing and decreased air movement, coarse BS Cardiovascular: RRR, no significant murmur Gastrointestinal: soft, positive bowel sounds Neurological: non-focal, moves all 4 limbs Deviation from normal: confused, mild agitation, states breathing a little better Dx/Plan (1) Pneumonia Code(s): J18.9 - PNEUMONIA, UNSPECIFIED ORGANISM Status: Acute (2) COPD exacerbation Code(s): J44.1 - CHRONIC OBSTRUCTIVE PULMONARY DISEASE W (ACUTE) EXACERBATION Status: Acute (3) Acute worsening of stage 3 chronic kidney disease Code(s): N18.3 - CHRONIC KIDNEY DISEASE, STAGE 3 (MODERATE) Status: Acute Comment: Persistent, avoid nephrotoxic meds and contrast media (4) Diabetes mellitus, insulin dependent (IDDM), controlled Code(s): E11.9 - TYPE 2 DIABETES MELLITUS WITHOUT COMPLICATIONS; Z79.4 - MARKETING SUPPORT MANAGER (CURRENT) USE OF INSULIN Status: Chronic (5) Diabetic neuropathy Code(s): E11.40 - TYPE 2 DIABETES MELLITUS WITH DIABETIC NEUROPATHY, UNSP Status: Chronic (6) Dyslipidemia Code(s): E78.5 - HYPERLIPIDEMIA, UNSPECIFIED Status: Chronic (7) GERD (gastroesophageal reflux disease) Code(s): K21.9 - GASTRO-ESOPHAGEAL REFLUX DISEASE WITHOUT ESOPHAGITIS Status: Chronic (8) Gout Code(s): M10.9 - GOUT, UNSPECIFIED Status: Chronic (9) HTN (hypertension) Code(s): I10 - ESSENTIAL (PRIMARY) HYPERTENSION Status: Chronic Qualifiers: Hypertension type: essential hypertension Qualified Code(s): I10 - Essential (primary) hypertension (10) Hypernatremia Code(s): E87.0 - HYPEROSMOLALITY AND HYPERNATREMIA Status: Chronic Comment: resolving, free water via peg (11) Chronic anticoagulation Code(s): Z79.01 - MARKETING SUPPORT MANAGER (CURRENT) USE OF ANTICOAGULANTS Status: Chronic Comment: INR supratherapeutic, starting to come down, now 4.0 01/14. Continue to hold Coumadin. - Plan cont current plan of care, continue antibiotics risperadone per Dr. Steve for agitation due to encephalopathy -: from severe illness/ hospitalization/ not sleeping. * . - Discharge Day Encounter end time: 13:00
[2017-01-14] MEDS: HumaLOG 300 UNITS/3 ML VIAL SC PRN ×2 (12:41→18:58)
--- NOTE | 2017-01-14 13:31 | PQF ---
Date: 01-14-17 ATTN: DR. TOOTIE CORCORAN Please exercise your independent, professional judgment in responding to the clarification form. Clinical indicators are provided on the bottom of this form for your review Please check appropriate box(s): [ ] Protein Calorie Malnutrition: [ X ] Moderate [ ] Severe [ ] Other Malnutrition (please specify) __ [ ] Other diagnosis [ ] Unable to determine In addition, please specify: Present on Admission (POA): [ ] Yes [ ] No [ ] Unable to determine CLINICAL INDICATORS - SIGNS / SYMPTOMS / LABS BMI of 32.1 ALBUMIN: 2.7 H&P: MODERATE TO SEVERE PROTEIN CALORIE MALNUTRITION CONSULT NOTE DR. VELASQUEZ 01-12-17: HISTORY AN IMPRESSION OF SEVERE DECONDITIONING DRYWALL FOREMAN CONSULT: 01-13-17: CONSULT FOR PEG TF, WOUND CARE CONSULT, Patient is unable to provide any history or answer RD questions, spoke with at bedside. Patient was discharged from this facility on 01/08 and went to a [facility], is not sure if he was tolerating feeds there but is very worried that he has not been getting fed today. She does not know his UBW but knows he has lost weight from being in the hospital. Patient was measured at 242 lbs on 12/24. Per chart review, patient was receiving Jevity 1.5 at 65 mL/hr with 200 mL water flush every 6 hours. RISK FACTORS: DRYWALL FOREMAN CONSULT: 01-13-17: CONSULT FOR PEG TF, WOUND CARE CONSULT, Patient is unable to provide any history or answer RD questions, spoke with at bedside. Patient was discharged from this facility on 01/08 and went to a NH, is not sure if he was tolerating feeds there but is very worried that he has not been getting fed today. She does not know his UBW but knows he has lost weight from being in the hospital. Patient was measured at 242 lbs on 12/24. Per chart review, patient was receiving Jevity 1.5 at 65 mL/hr with 200 mL water flush every 6 hours. TREATMENT: DRYWALL FOREMAN CONSULT 01-13-17: RECOMMEND TF SUPLENA AT 50 ML/HR CONTINUOUS FULL STRENGTH WITH 30 ML Q4 HR FLUSHES, PROSTAT ONCE DAILY (This form is maintained as a part of the permanent medical record) 2014 [employer] All Rights Reserved BALDEMAR [email or web address] Office: [phone] [facility]
[2017-01-14] MEDS: Famotidine/PF 20 mg/2ml Vial SLOW IVP SCH (21:26)
[2017-01-14] MEDS: Nebivolol HCl 5 MG TAB PO SCH (21:33)
[2017-01-15] MEDS: guaiFENesin ER 600 MG TAB PO SCH ×5 (00:57→21:11)
[2017-01-15 06:08] LABS: #Lymphocytes 0.4 thou/uL (1.20-3.40); #Monocytes 0.3 thou/uL (0.11-0.59); %Eosinophils 0.1 % (0.0-10.0); %Monocytes 3.1 % (0.0-10.0); Hematocrit 30.1 % (42.0-52.0); Mean Platelet Volume 9.1 fL (7.4-10.4); White Blood Cell (WBC) Count 10.8 thou/uL (4.8-10.8)
[2017-01-15 07:02] LABS: Anion Gap 11 mmol/L (10-20); BUN (Urea Nitrogen) 71 mg/dL (8.4-25.7); Calc. Creatinine Clearance 40 mL/min (70-130); Calcium 8.3 mg/dL (7.8-10.44); Carbon Dioxide 27 mmol/L (23-31); Chloride 115 mmol/L (98-107); Estimated GFR-MDRD 31
[2017-01-15] MEDS: HumaLOG 300 UNITS/3 ML VIAL SC PRN ×3 (07:02→17:48)
[2017-01-15] MEDS: Linezolid 600 MG in Premix Bag 1 BAG IVPB SCH ×2 (08:33→21:15)
[2017-01-15] MEDS: Sodium Chloride 0.45% 1,000 ML IV SCH (08:33)
[2017-01-15] MEDS: Pantoprazole 40 MG GRANULES PACKET PER TUBE SCH (08:35)
[2017-01-15] MEDS: Insulin Detemir 100 UNITS/ML 40 UNITS in Pre-Filled Syringe 1 EACH SC SCH ×2 (08:35→21:29)
[2017-01-15] MEDS: Cefepime 1 GM, Admixture Fee 1 EACH in Sterile Water 10 ML SLOW IVP SCH ×2 (08:36→21:00)
[2017-01-15] MEDS: risperiDONE 0.25 MG TAB PO SCH (08:37)
--- NOTE | 2017-01-15 09:45 | RAD ---
1 VIEW CHEST: Date: 01/15/17 COMPARISON: 01/14/17. HISTORY: Ventilated patient. Respiratory distress. FINDINGS: Normal cardiac silhouette. There are diffuse interstitial and alveolar opacities. Degree of opacifica tion of left hemithorax is progressed when compared to the previous exam. No pleural effusion or pneu mothorax. IMPRESSION: Worsening infiltrates. POS: [facility]
--- NOTE | 2017-01-15 12:38 | PDOC.PN ---
- Subjective Encounter Start Date: 01/15/17 Encounter Start Time: 12:45 Subjective: Patient still agitated. Coughing but not able to get anything up. - Objective Resuscitation Status: Resuscitation Status DNI:No Intubation MAR Reviewed: Yes Vital Signs & Weight: Vital Signs (12 hours) Temp Pulse Pulse Pulse Resp BP BP 01/15/17 12:08 95 36 H 01/15/17 11:18 98.5 F 84 20 01/15/17 10:33 80 24 H 01/15/17 10:00 72 20 01/15/17 08:30 89 89 101/60 101/60 01/15/17 08:00 98.3 F 86 24 H 01/15/17 07:18 98.3 F 86 24 H 01/15/17 06:45 90 22 H 01/15/17 04:00 98.9 F 69 24 H BP Pulse Ox Pulse Ox Pulse Ox 01/15/17 12:08 94/51 L 89 L 01/15/17 11:18 96/63 90 L 01/15/17 10:33 94 L 01/15/17 10:00 112/57 L 95 01/15/17 08:30 94 L 94 L 01/15/17 08:00 94 L 01/15/17 07:18 106/56 L 94 L 01/15/17 06:45 92 L 01/15/17 04:00 111/56 L 95 Weight Admit Weight 217 lb 9.6 oz Weight 218 lb 8 oz I&O: 01/14/17 01/15/17 01/16/17 06:59 06:59 06:59 Intake Total 2425 1420 1941 Balance 2425 1420 1941 Result Diagrams: 01/15/17 05:37 01/15/17 05:37 Additional Labs: Accuchecks 01/15/17 01/15/17 01/14/17 11:46 06:06 23:53 POC Glucose 244 H 182 H 127 H 01/14/17 18:13 POC Glucose 206 H Phys Exam - Physical Examination agitated HEENT: moist MMs bilateral crackles, upper resp secretions Cardiovascular: RRR Gastrointestinal: soft, positive bowel sounds Neurological: non-focal, moves all 4 limbs Deviation from normal: not able to speak clearly or give history Dx/Plan (1) Pneumonia Code(s): J18.9 - PNEUMONIA, UNSPECIFIED ORGANISM Status: Acute (2) COPD exacerbation Code(s): J44.1 - CHRONIC OBSTRUCTIVE PULMONARY DISEASE W (ACUTE) EXACERBATION Status: Acute (3) Acute worsening of stage 3 chronic kidney disease Code(s): N18.3 - CHRONIC KIDNEY DISEASE, STAGE 3 (MODERATE) Status: Acute Comment: Persistent, avoid nephrotoxic meds and contrast media (4) Diabetes mellitus, insulin dependent (IDDM), controlled Code(s): E11.9 - TYPE 2 DIABETES MELLITUS WITHOUT COMPLICATIONS; Z79.4 - NURSING HOME (CURRENT) USE OF INSULIN Status: Chronic (5) Diabetic neuropathy Code(s): E11.40 - TYPE 2 DIABETES MELLITUS WITH DIABETIC NEUROPATHY, UNSP Status: Chronic (6) Dyslipidemia Code(s): E78.5 - HYPERLIPIDEMIA, UNSPECIFIED Status: Chronic (7) GERD (gastroesophageal reflux disease) Code(s): K21.9 - GASTRO-ESOPHAGEAL REFLUX DISEASE WITHOUT ESOPHAGITIS Status: Chronic (8) Gout Code(s): M10.9 - GOUT, UNSPECIFIED Status: Chronic (9) HTN (hypertension) Code(s): I10 - ESSENTIAL (PRIMARY) HYPERTENSION Status: Chronic Qualifiers: Hypertension type: essential hypertension Qualified Code(s): I10 - Essential (primary) hypertension (10) Hypernatremia Code(s): E87.0 - HYPEROSMOLALITY AND HYPERNATREMIA Status: Chronic Comment: resolving, free water via peg (11) Chronic anticoagulation Code(s): Z79.01 - TURRET PUNCH OPERATOR (CURRENT) USE OF ANTICOAGULANTS Status: Chronic Comment: INR supratherapeutic, starting to come down, now 4.0 01/14. Continue to hold Coumadin. - Plan cont current plan of care, continue antibiotics Patient more agitated after Risperadone per . Will d/c and try a night -: time dose of Haldol. Will do 1mg IV to start, then increase as -: tolerated q2min to find the effective dose in this patient. * . - Discharge Day Encounter end time: 13:15
[2017-01-15] MEDS ORDERED: guaiFENesin/Codeine Phosphate 200 mg/20 mg 10 ml UD Cup PER TUBE PRN (12:39)
[2017-01-15] MEDS ORDERED: Haloperidol Lactate 5 MG/ML VIAL SLOW IVP PRN (13:30)
[2017-01-15] MEDS: Dextrose 5% in Water 1,000 ML IV SCH (13:52)
--- NOTE | 2017-01-15 13:55 | PRG ---
DATE OF SERVICE: 01/15/2017 SERVICE: Pulmonary Medicine. INTERVAL HISTORY: The patient looks pretty bad today. He is grunting. He is breathing very quickly . He is encephalopathic and just rapidly stares out into space. He cannot provide any additional el ements of the history. His vital signs and saturations look otherwise okay. PHYSICAL EXAMINATION: VITAL SIGNS: Afebrile. Pulse 84, blood pressure 96/63, respirations 20, saturation 90% on 3 liters nasal cannula. GENERAL: The patient is awake, but not appropriately responding. HEENT: Normocephalic, atraumatic. Sclerae are white, conjunctivae pink. Oral and nasal mucosa is d ry. LUNGS: Bilateral rhonchi are present. There is slightly prolonged expiratory phase. I do not appre ciate much in the way of wheezing or crackles. HEART: Normal rate, regular. ABDOMEN: Soft, nontender, nondistended, bowel sounds positive. MUSCULOSKELETAL: No cyanosis or clubbing. No pitting in the bilateral lower extremities. NEUROLOGIC: Grossly nonfocal. LABORATORY DATA: WBC 10.8, hemoglobin 9.3, platelets 155,000. Neutrophil count is roughly stable. INR 4.0. Creatinine 2.11, which is roughly stable. BUN 71, sodium 149. Chloride is also elevated. Blood cultures x2 were unremarkable. Influenza is negative. IMAGING: Chest x-ray demonstrates worsening infiltrates of the bilateral lung camacho. ASSESSMENT: 1. Acute hypoxic respiratory failure. 2. Chronic obstructive pulmonary disease with acute exacerbation. 3. Community-acquired pneumonia. 4. Metabolic encephalopathy, severe. 5. Hypernatremia. 6. Chronic kidney disease, stage 3. PLAN: We will increase our free water. Outside of that, supportive care is going to be continued to the best of our ability. The patient remains a DNI and I confirmed that with the patient's maya lopez She understands that I would like to intubate him if he were not a DNI. My suspicion is that if things do not turnaround, he will be passing away in the next 24-48 hours. Previously, he was not a ble to tolerate BiPAP, which will not be entertained at this time.
--- NOTE | 2017-01-15 15:37 | EKG ---
Test Reason : Blood Pressure : / mmHG Vent. Rate : 090 BPM Atrial Rate : 090 BPM P-R Int : 218 ms QRS Dur : 080 ms QT Int : 356 ms P-R-T Axes : 081 -37 060 degrees QTc Int : 435 ms Sinus rhythm with 1st degree A-V block Left axis deviation Pulmonary disease pattern Abnormal ECG Confirmed by CHINTAN CARRILLO D.O. ([id number]), editor school photograph SEBASTIEN DORAN ([id number]) on 01/15/2017 3:36:52 PM Referred By: Confirmed By:CHINTAN CARRILLO D.O.
[2017-01-15] MEDS ORDERED: Sodium Chloride 0.65% Nasal 44 ML BOT EA NARE PRN (15:57)
[2017-01-15] MEDS: Nebivolol HCl 5 MG TAB PO SCH (21:10)
[2017-01-15] MEDS: Famotidine/PF 20 mg/2ml Vial SLOW IVP SCH (21:11)
[2017-01-16] MEDS: Dextrose 5% in Water 1,000 ML IV SCH ×3 (00:20→17:15)
[2017-01-16] MEDS: HumaLOG 300 UNITS/3 ML VIAL SC PRN ×4 (00:26→17:47)
[2017-01-16] MEDS ORDERED: Acetaminophen 650 MG Suppository PR PRN (03:54)
[2017-01-16] MEDS ORDERED: Acetaminophen 650 MG/20.3 ML UDCUP PER TUBE PRN (03:54)
[2017-01-16] MEDS: guaiFENesin ER 600 MG TAB PO SCH ×4 (04:36→21:59)
[2017-01-16 05:36] LABS: #Eosinphils 0.1 thou/uL (0.0-0.7); #Lymphocytes 0.7 thou/uL (1.20-3.40); #Monocytes 0.5 thou/uL (0.11-0.59); #Neutrophils 8.2 thou/uL (1.40-6.50); %Eosinophils 0.7 % (0.0-10.0); %Lymphocytes 7.8 % (21.0-51.0); %Monocytes 5.6 % (0.0-10.0); Hematocrit 27.1 % (42.0-52.0); Mean Platelet Volume 8.7 fL (7.4-10.4); Red Blood Cell (RBC) Count 2.77 mill/uL (4.70-6.10); White Blood Cell (WBC) Count 9.5 thou/uL (4.8-10.8)
[2017-01-16 05:37] LABS: Prothrombin Time 22.7 SEC (12.0-14.7)
[2017-01-16 05:42] LABS: Anion Gap 10 mmol/L (10-20); BUN (Urea Nitrogen) 66 mg/dL (8.4-25.7); Calc. Creatinine Clearance 38 mL/min (70-130); Calcium 7.8 mg/dL (7.8-10.44); Carbon Dioxide 27 mmol/L (23-31); Chloride 109 mmol/L (98-107); Estimated GFR-MDRD 28
[2017-01-16] MEDS: Cefepime 1 GM, Admixture Fee 1 EACH in Sterile Water 10 ML SLOW IVP SCH ×2 (08:03→20:03)
[2017-01-16] MEDS: Pantoprazole 40 MG GRANULES PACKET PER TUBE SCH (08:05)
[2017-01-16] MEDS: Linezolid 600 MG in Premix Bag 1 BAG IVPB SCH ×2 (08:06→20:40)
[2017-01-16] MEDS: Insulin Detemir 100 UNITS/ML 40 UNITS in Pre-Filled Syringe 1 EACH SC SCH ×2 (09:08→20:52)
--- NOTE | 2017-01-16 15:59 | PDOC.PN ---
- Subjective Encounter Start Date: 01/16/17 Encounter Start Time: 09:30 Subjective: is tachypneic and not oriented, opens eyes - Objective Resuscitation Status: Resuscitation Status DNI:No Intubation MAR Reviewed: Yes Vital Signs & Weight: Vital Signs (12 hours) Temp Pulse Resp BP Pulse Ox 01/16/17 15:09 75 20 01/16/17 15:00 98.7 F 73 20 104/48 L 100 01/16/17 14:00 81 24 H 104/38 L 97 01/16/17 11:30 97 01/16/17 11:26 73 28 H 01/16/17 11:25 100.8 F H 81 20 111/56 L 98 01/16/17 10:00 80 32 H 100/54 L 95 01/16/17 08:01 86 32 H 115/59 L 95 01/16/17 08:00 99.8 F H 86 32 H 95 01/16/17 07:00 99.8 F H 81 20 103/51 L 97 01/16/17 04:00 100.4 F H 86 24 H 98/41 L 96 Weight Admit Weight 217 lb 9.6 oz Weight 220 lb 8 oz I&O: 01/15/17 01/16/17 01/17/17 06:59 06:59 06:59 Intake Total 2920 3698 480 Balance 2920 3698 480 Result Diagrams: 01/16/17 05:09 01/16/17 05:09 Additional Labs: Accuchecks 01/16/17 01/16/17 01/15/17 11:29 06:05 23:52 POC Glucose 297 H 279 H 362 H 01/15/17 17:49 POC Glucose 310 H Phys Exam - Physical Examination HEENT: PERRLA dry mucosa, mouth breathing Neck: no JVD, supple Respiratory: no wheezing, no rales rhonchi+++ Cardiovascular: RRR, no significant murmur Gastrointestinal: soft, non-tender, positive bowel sounds peg+ Musculoskeletal: pulses present, edema present Neurological: non-focal, moves all 4 limbs Dx/Plan (1) Pneumonia Code(s): J18.9 - PNEUMONIA, UNSPECIFIED ORGANISM Status: Acute Qualifiers: Pneumonia type: aspiration pneumonia Aspiration pneumonia type: due to gastric secretions (2) Acute on chronic respiratory failure with hypoxia and hypercapnia Code(s): J96.21 - ACUTE AND CHRONIC RESPIRATORY FAILURE WITH HYPOXIA; J96.22 - ACUTE AND CHRONIC RESPIRATORY FAILURE WITH HYPERCAPNIA Status: Acute (3) Acute worsening of stage 3 chronic kidney disease Code(s): N18.3 - CHRONIC KIDNEY DISEASE, STAGE 3 (MODERATE) Status: Acute Comment: Persistent, avoid nephrotoxic meds and contrast media (4) COPD exacerbation Code(s): J44.1 - CHRONIC OBSTRUCTIVE PULMONARY DISEASE W (ACUTE) EXACERBATION Status: Acute (5) Chronic diastolic (congestive) heart failure Code(s): I50.32 - CHRONIC DIASTOLIC (CONGESTIVE) HEART FAILURE Status: Chronic (6) Dyslipidemia Code(s): E78.5 - HYPERLIPIDEMIA, UNSPECIFIED Status: Chronic (7) GERD (gastroesophageal reflux disease) Code(s): K21.9 - GASTRO-ESOPHAGEAL REFLUX DISEASE WITHOUT ESOPHAGITIS Status: Chronic Qualifiers: Esophagitis presence: esophagitis presence not specified Qualified Code(s) : K21.9 - Gastro-esophageal reflux disease without esophagitis (8) HTN (hypertension) Code(s): I10 - ESSENTIAL (PRIMARY) HYPERTENSION Status: Chronic Qualifiers: Hypertension type: essential hypertension Qualified Code(s): I10 - Essential (primary) hypertension (9) Obesity (BMI 30.0-34.9) Code(s): E66.9 - OBESITY, UNSPECIFIED Status: Chronic (10) Paroxysmal atrial fibrillation Code(s): I48.0 - PAROXYSMAL ATRIAL FIBRILLATION Status: Chronic (11) Physical deconditioning Code(s): R53.81 - OTHER MALAISE Status: Chronic Comment: Severe (12) Acute metabolic encephalopathy Code(s): G93.41 - METABOLIC ENCEPHALOPATHY Status: Acute (13) Chronic anemia Code(s): D64.9 - ANEMIA, UNSPECIFIED Status: Chronic - Plan poor prognosis, severe deconditioning -: is on cefepime, zyvox and levaquin -: solumedrol daily -: t.max of 100 last 24hrs -: d/w and daughter about poor prognosis, Father Josué will visit patient * . Review of Systems - Medications/Allergies Allergies/Adverse Reactions: Allergies Allergy/AdvReac Type Severity Reaction Status Date / Time exenatide [From By[place]] Allergy Severe Verified 11/17/12 04:50 sitagliptin phosphate Allergy Severe Verified 11/17/12 04:50 [From Januvia] clindamycin Allergy Intermediate Swollen Verified 11/17/12 04:48 Lips erythromycin base Allergy Intermediate Swollen Verified 11/17/12 04:48 [Erythromycin Base] Lips hydrocodone Allergy Intermediate Verified 11/17/12 04:49 Sulfa (Sulfonamide Allergy Intermediate Swollen Verified 11/17/12 04:49 Antibiotics) Lips phenol Allergy Verified 11/17/12 04:50 propoxyphene napsylate Allergy Verified 11/17/12 04:50 [facility] codeine AdvReac Intermediate overly Verified 01/15/17 17:45 sedated Medications: Current Medications Acetaminophen (Tylenol Elixir) 650 mg PER TUBE Q4H PRN PRN Reason: pain/fever Last Admin: 01/16/17 04:36 Dose: 650 mg Acetaminophen (Tylenol) 650 mg [place] Q4H PRN PRN Reason: Headache/Fever or Pain Albuterol/Ipratropium (Duoneb) 3 ml NEB [id number] [facility] Last Admin: 01/16/17 15:09 Dose: 3 ml Aspirin (Aspirin Chewable) 81 mg PO DAILY [facility] Last Admin: 01/16/17 08:05 Dose: 81 mg Dextrose/Water (Dextrose 50%) 25 gm SLOW IVP PRN PRN PRN Reason: Hypoglycemia Diltiazem HCl (Cardizem) 30 mg PER TUBE TID [facility] Last Admin: 01/16/17 15:37 Dose: 30 mg Famotidine (Pepcid) 20 mg SLOW IVP Q24HR [facility] Last Admin: 01/15/17 21:11 Dose: 20 mg Glucagon (Glucagon) 1 mg IM PRN PRN PRN Reason: Hypoglycemia Guaifenesin (Mucinex) 600 mg PO 0400,1000,1600,2200 [facility] Last Admin: 01/16/17 15:37 Dose: 600 mg Haloperidol Lactate (Haldol) 1 mg SLOW IVP HSPRN PRN PRN Reason: Agitation Linezolid 600 mg/ Device 300 mls @ 150 mls/hr IVPB Q12HR [facility] Last Admin: 01/16/17 08:06 Dose: 300 mls Dextrose/Water (D5w) 1,000 mls @ 0 mls/hr IV .Q0M PRN; As Directed PRN Reason: Hypoglycemia Insulin Detemir 40 units/ (Miscellaneous Medication) 0.4 mls @ 0 mls/hr SC BID [facility] Last Admin: 01/16/17 09:08 Dose: 0.4 mls Levofloxacin 750 mg/ Device 150 mls @ 100 mls/hr IVPB Q2D [facility] Last Admin: 01/14/17 19:39 Dose: 150 mls Cefepime HCl 1 gm/Miscellaneous Medication 1 each/ Sterile Water 10 mls @ 120 mls/hr SLOW IVP 0800,2000 [facility] Last Admin: 01/16/17 08:03 Dose: 10 mls Dextrose/Water (D5w) 1,000 mls @ 100 mls/hr IV .Q10H [facility] Last Admin: 01/16/17 11:33 Dose: 1,000 mls Insulin Human Lispro (Humalog) 0 units SC .AGGRESSIVE SLIDING PRN PRN Reason: Aggressive Correctional Scale Last Admin: 01/16/17 11:30 Dose: 9 units Methylprednisolone Sodium Succinate (Solu-Medrol) 40 mg IVP DAILY [facility] Last Admin: 01/16/17 08:05 Dose: 40 mg Nebivolol (Bystolic) 5 mg PO HS [facility] Last Admin: 01/15/17 21:10 Dose: 5 mg Ondansetron HCl (Zofran) 4 mg IVP Q6H PRN PRN Reason: Nausea/Vomiting Pantoprazole Sodium (Protonix) 40 mg PER TUBE DAILY [facility] Last Admin: 01/16/17 08:05 Dose: 40 mg Sodium Chloride (Flush - Normal Saline) 10 ml IVF Q12HR [facility] Last Admin: 01/16/17 08:05 Dose: 10 ml Sodium Chloride (Flush - Normal Saline) 10 ml IVF PRN PRN PRN Reason: Saline Flush Sodium Chloride ([place] Nasal [place] 0.65%) 1 ml EA NARE PRN PRN PRN Reason: Nasal Dryness
--- NOTE | 2017-01-16 17:13 | PRG ---
DATE OF SERVICE: 01/16/2017 SERVICE: Pulmonary Medicine. INTERVAL HISTORY: The patient is doing fine from a respiratory standpoint. He is breathing comforta vivian this morning. Earlier, he was having some difficulty with breathing. That being said, he seemed to settle down once again. He remains extraordinarily weak. He is yet to be out of bed. He has tamayo d a hard time working with physical therapy and is getting weaker day by day. He remains DNI/DNR. PHYSICAL EXAMINATION: VITAL SIGNS: Afebrile currently with T-max of 100.8, pulse 73, blood pressure 104/48, respirations 2 0, saturation 100% on 4 liters nasal cannula. GENERAL: The patient is somnolent, but wakes up a little bit of stimulation. He is in no apparent d istress. HEENT: Normocephalic, atraumatic. Sclerae are white, conjunctivae pink. Oral and nasal mucosa is m oist without lesions. LUNGS: Rhonchi are present. He has got diminished breath sounds. No prolonged expiratory phase or wheezing is appreciated. HEART: Normal rate, regular. ABDOMEN: Soft, nontender, nondistended. Bowel sounds positive. MUSCULOSKELETAL: No cyanosis or clubbing. No pitting in the bilateral lower extremities. NEUROLOGIC: Grossly nonfocal. LABORATORY DATA: WBC 9.5, hemoglobin 8.5, and platelets 146,000. INR 1.9. Creatinine 2.26, which i s roughly stable. Basic metabolic profile is otherwise unremarkable. Sodium is dropping to 142 and potassium 4.0. BUN seems to be improving to 66. Blood cultures x2 and influenza is negative. ASSESSMENT: 1. Acute hypoxic respiratory failure. 2. Chronic obstructive pulmonary disease with acute exacerbation, improving. 3. Community acquired pneumonia. 4. Metabolic encephalopathy, improving. 5. Hypernatremia, resolved. 6. Chronic kidney disease, stage 3. PLAN: I will drop rate of free water significantly. Outside of that, supportive care including anti biotics, nebulized medications, and physiotherapy will be continued. The patient remains a DNI/DNR. He remains at extraordinarily high risk of further decompensation. My suspicion is that he will be passing away during his hospital stay because of his degree of severe debility. We will continue wor karuna on mobilizing him if he can.
[2017-01-16] MEDS: Famotidine/PF 20 mg/2ml Vial SLOW IVP SCH (20:39)
[2017-01-16] MEDS: Nebivolol HCl 5 MG TAB PO SCH (20:39)
[2017-01-17] MEDS: HumaLOG 300 UNITS/3 ML VIAL SC PRN ×4 (00:49→17:36)
[2017-01-17] MEDS: guaiFENesin ER 600 MG TAB PO SCH ×4 (04:06→21:01)
[2017-01-17 05:18] LABS: #Eosinphils 0.1 thou/uL (0.0-0.7); #Lymphocytes 0.6 thou/uL (1.20-3.40); #Monocytes 0.5 thou/uL (0.11-0.59); #Neutrophils 8.7 thou/uL (1.40-6.50); %Basophils 0.4 % (0.0-1.0); %Eosinophils 0.9 % (0.0-10.0); %Lymphocytes 5.9 % (21.0-51.0); %Monocytes 4.6 % (0.0-10.0); Hematocrit 26.5 % (42.0-52.0); Mean Platelet Volume 8.8 fL (7.4-10.4); Red Blood Cell (RBC) Count 2.74 mill/uL (4.70-6.10); White Blood Cell (WBC) Count 9.9 thou/uL (4.8-10.8)
[2017-01-17 05:23] LABS: Prothrombin Time 18.1 SEC (12.0-14.7)
[2017-01-17 05:36] LABS: Anion Gap 9 mmol/L (10-20); BUN (Urea Nitrogen) 65 mg/dL (8.4-25.7); Calc. Creatinine Clearance 40 mL/min (70-130); Calcium 7.9 mg/dL (7.8-10.44); Carbon Dioxide 27 mmol/L (23-31); Chloride 107 mmol/L (98-107); Estimated GFR-MDRD 30
[2017-01-17] MEDS: Dextrose 5% in Water 1,000 ML IV SCH (08:29)
[2017-01-17] MEDS: Linezolid 600 MG in Premix Bag 1 BAG IVPB SCH (08:32)
[2017-01-17] MEDS: Pantoprazole 40 MG GRANULES PACKET PER TUBE SCH (08:33)
[2017-01-17] MEDS: Cefepime 1 GM, Admixture Fee 1 EACH in Sterile Water 10 ML SLOW IVP SCH ×2 (08:33→20:40)
[2017-01-17] MEDS: Insulin Detemir 100 UNITS/ML 40 UNITS in Pre-Filled Syringe 1 EACH SC SCH ×2 (08:34→22:02)
[2017-01-17] MEDS ORDERED: risperiDONE 0.25 MG TAB PO SCH ×2 (10:15→21:00)
--- NOTE | 2017-01-17 12:13 | PDOC.PN ---
- Subjective Encounter Start Date: 01/17/17 Encounter Start Time: 11:25 Subjective: is awake, sob+ - Objective Resuscitation Status: Resuscitation Status DNI:No Intubation MAR Reviewed: Yes Vital Signs & Weight: Vital Signs (12 hours) Temp Pulse Resp BP Pulse Ox 01/17/17 11:00 97.9 F 76 20 102/47 L 95 01/17/17 10:01 69 32 H 102/49 L 91 L 01/17/17 09:26 97 01/17/17 09:19 79 19 99 01/17/17 08:35 82 28 H 124/63 96 01/17/17 07:46 96.6 F L 75 20 94 L 01/17/17 07:00 96.6 F L 75 20 99/46 L 94 L 01/17/17 04:00 98.7 F 74 24 H 105/43 L 95 01/17/17 02:39 73 20 97 Weight Admit Weight 217 lb 9.6 oz Weight 227 lb 1.6 oz I&O: 01/16/17 01/17/17 01/18/17 06:59 06:59 06:59 Intake Total 3698 3460 170 Balance 3698 3460 170 Result Diagrams: 01/17/17 05:02 01/17/17 05:02 Additional Labs: Accuchecks 01/17/17 01/17/17 01/17/17 11:41 05:41 00:01 POC Glucose 273 H 203 H 270 H 01/16/17 17:44 POC Glucose 318 H Phys Exam - Physical Examination HEENT: PERRLA, sclera anicteric dry mucosa Neck: no JVD, supple Respiratory: no rales, wheezing present Cardiovascular: RRR, no significant murmur Gastrointestinal: soft, non-tender, positive bowel sounds peg+ Musculoskeletal: pulses present, edema present Neurological: non-focal, moves all 4 limbs Dx/Plan (1) Pneumonia Code(s): J18.9 - PNEUMONIA, UNSPECIFIED ORGANISM Status: Acute Qualifiers: Pneumonia type: aspiration pneumonia Aspiration pneumonia type: due to gastric secretions (2) Acute on chronic respiratory failure with hypoxia and hypercapnia Code(s): J96.21 - ACUTE AND CHRONIC RESPIRATORY FAILURE WITH HYPOXIA; J96.22 - ACUTE AND CHRONIC RESPIRATORY FAILURE WITH HYPERCAPNIA Status: Acute (3) Acute worsening of stage 3 chronic kidney disease Code(s): N18.3 - CHRONIC KIDNEY DISEASE, STAGE 3 (MODERATE) Status: Acute Comment: Persistent, avoid nephrotoxic meds and contrast media (4) COPD exacerbation Code(s): J44.1 - CHRONIC OBSTRUCTIVE PULMONARY DISEASE W (ACUTE) EXACERBATION Status: Acute (5) Chronic diastolic (congestive) heart failure Code(s): I50.32 - CHRONIC DIASTOLIC (CONGESTIVE) HEART FAILURE Status: Chronic (6) Dyslipidemia Code(s): E78.5 - HYPERLIPIDEMIA, UNSPECIFIED Status: Chronic (7) GERD (gastroesophageal reflux disease) Code(s): K21.9 - GASTRO-ESOPHAGEAL REFLUX DISEASE WITHOUT ESOPHAGITIS Status: Chronic Qualifiers: Esophagitis presence: esophagitis presence not specified Qualified Code(s) : K21.9 - Gastro-esophageal reflux disease without esophagitis (8) HTN (hypertension) Code(s): I10 - ESSENTIAL (PRIMARY) HYPERTENSION Status: Chronic Qualifiers: Hypertension type: essential hypertension Qualified Code(s): I10 - Essential (primary) hypertension (9) Obesity (BMI 30.0-34.9) Code(s): E66.9 - OBESITY, UNSPECIFIED Status: Chronic (10) Paroxysmal atrial fibrillation Code(s): I48.0 - PAROXYSMAL ATRIAL FIBRILLATION Status: Chronic (11) Physical deconditioning Code(s): R53.81 - OTHER MALAISE Status: Chronic Comment: Severe (12) Acute metabolic encephalopathy Code(s): G93.41 - METABOLIC ENCEPHALOPATHY Status: Acute (13) Chronic anemia Code(s): D64.9 - ANEMIA, UNSPECIFIED Status: Chronic - Plan is on cefepime, zyvox and levaquin -: may scale down antibiotics -: steroids iv, d5w, levemir 40u bid -: prognosis guarded, has severe deconditioning -: is encephalopathic as well. * . Review of Systems - Medications/Allergies Allergies/Adverse Reactions: Allergies Allergy/AdvReac Type Severity Reaction Status Date / Time exenatide [From [place]] Allergy Severe Verified 11/17/12 04:50 sitagliptin phosphate Allergy Severe Verified 11/17/12 04:50 [From Januvia] clindamycin Allergy Intermediate Swollen Verified 11/17/12 04:48 Lips erythromycin base Allergy Intermediate Swollen Verified 11/17/12 04:48 [Erythromycin Base] Lips hydrocodone Allergy Intermediate Verified 11/17/12 04:49 Sulfa (Sulfonamide Allergy Intermediate Swollen Verified 11/17/12 04:49 Antibiotics) Lips phenol Allergy Verified 11/17/12 04:50 propoxyphene napsylate Allergy Verified 11/17/12 04:50 [From Socratest-N 100] codeine AdvReac Intermediate overly Verified 01/15/17 17:45 sedated Medications: Current Medications Acetaminophen (Tylenol Elixir) 650 mg PER TUBE Q4H PRN PRN Reason: pain/fever Last Admin: 01/16/17 04:36 Dose: 650 mg Acetaminophen (Tylenol) 650 mg [place] Q4H PRN PRN Reason: Headache/Fever or Pain Albuterol/Ipratropium (Duoneb) 3 ml NEB I2OO-TM [facility] Last Admin: 01/17/17 09:19 Dose: 3 ml Aspirin (Aspirin Chewable) 81 mg PO DAILY [facility] Last Admin: 01/17/17 08:33 Dose: 81 mg Dextrose/Water (Dextrose 50%) 25 gm SLOW IVP PRN PRN PRN Reason: Hypoglycemia Diltiazem HCl (Cardizem) 30 mg PER TUBE TID [facility] Last Admin: 01/17/17 08:33 Dose: 30 mg Doxycycline Hyclate (Vibramycin) 100 mg PO BID [facility] Famotidine (Pepcid) 20 mg SLOW IVP Q24HR [facility] Last Admin: 01/16/17 20:39 Dose: 20 mg Glucagon (Glucagon) 1 mg IM PRN PRN PRN Reason: Hypoglycemia Guaifenesin (Mucinex) 600 mg PO 0400,1000,1600,2200 [facility] Last Admin: 01/17/17 10:13 Dose: 600 mg Dextrose/Water (D5w) 1,000 mls @ 0 mls/hr IV .Q0M PRN; As Directed PRN Reason: Hypoglycemia Insulin Detemir 40 units/ (Miscellaneous Medication) 0.4 mls @ 0 mls/hr SC BID [facility] Last Admin: 01/17/17 08:34 Dose: 0.4 mls Cefepime HCl 1 gm/Miscellaneous Medication 1 each/ Sterile Water 10 mls @ 120 mls/hr SLOW IVP 0800,2000 [facility] Last Admin: 01/17/17 08:33 Dose: 10 mls Dextrose/Water (D5w) 1,000 mls @ 50 mls/hr IV .Q20H [facility] Last Admin: 01/17/17 08:29 Dose: 1,000 mls Insulin Human Lispro (Humalog) 0 units SC .AGGRESSIVE SLIDING PRN PRN Reason: Aggressive Correctional Scale Last Admin: 01/17/17 11:41 Dose: 9 units Methylprednisolone Sodium Succinate (Solu-Medrol) 40 mg IVP DAILY [facility] Last Admin: 01/17/17 08:33 Dose: 40 mg Nebivolol (Bystolic) 5 mg PO HS [facility] Last Admin: 01/16/17 20:39 Dose: 5 mg Ondansetron HCl (Zofran) 4 mg IVP Q6H PRN PRN Reason: Nausea/Vomiting Pantoprazole Sodium (Protonix) 40 mg PER TUBE DAILY [facility] Last Admin: 01/17/17 08:33 Dose: 40 mg Risperidone (Risperidone) 0.25 mg PO BID [facility] Sodium Chloride (Flush - Normal Saline) 10 ml IVF Q12HR [facility] Last Admin: 01/17/17 08:34 Dose: 10 ml Sodium Chloride (Flush - Normal Saline) 10 ml IVF PRN PRN PRN Reason: Saline Flush Last Admin: 01/16/17 20:40 Dose: 10 ml Sodium Chloride ([place] Nasal [place] 0.65%) 1 ml EA NARE PRN PRN PRN Reason: Nasal Dryness
--- NOTE | 2017-01-17 12:25 | PRG ---
DATE OF SERVICE: 01/17/2017 SUBJECTIVE: Ar remains encephalopathic, confused, not sleeping at this time. OBJECTIVE: VITAL SIGNS: His blood pressure is 103/63, sats are 97% on 4 liters, temperature is 96, pulse 79, re spirations 19. CHEST: Bilateral rhonchi. CARDIAC: Normal S1, S2. No gallops. LABORATORY DATA: White count 9.3, H&H 8 and 26, platelet count is 136,000, creatinine 2.6. IMPRESSION: Respiratory failure, chronic obstructive pulmonary disease, pneumonia, coronary artery d isease, increasing encephalopathy, renal failure. PLAN: 1. Continue nutritional support, continue antibiotics. Deescalated several. 2. Continue steroids, nebulizer treatments. 3. Unfortunately unless his encephalopathy improves, it is very unlikely that he is going to get bet ter.
[2017-01-17] MEDS: Doxycycline 100 MG CAP PO SCH (20:41)
[2017-01-17] MEDS: Nebivolol HCl 5 MG TAB PO SCH (20:41)
[2017-01-17] MEDS: Famotidine/PF 20 mg/2ml Vial SLOW IVP SCH (20:42)
[2017-01-18] MEDS: HumaLOG 300 UNITS/3 ML VIAL SC PRN ×4 (00:14→23:43)
[2017-01-18] MEDS: guaiFENesin ER 600 MG TAB PO SCH ×4 (04:20→22:06)
[2017-01-18 06:05] LABS: Prothrombin Time 15.3 SEC (12.0-14.7)
[2017-01-18 06:28] LABS: Anion Gap 9 mmol/L (10-20); BUN (Urea Nitrogen) 69 mg/dL (8.4-25.7); Calc. Creatinine Clearance 45 mL/min (70-130); Carbon Dioxide 26 mmol/L (23-31); Chloride 105 mmol/L (98-107); Estimated GFR-MDRD 33
[2017-01-18 06:44] LABS: #Eosinphils 0.2 thou/uL (0.0-0.7); #Lymphocytes 0.8 thou/uL (1.20-3.40); #Monocytes 0.5 thou/uL (0.11-0.59); #Neutrophils 8.9 thou/uL (1.40-6.50); %Eosinophils 1.6 % (0.0-10.0); %Lymphocytes 7.6 % (21.0-51.0); %Monocytes 4.7 % (0.0-10.0); Hematocrit 25.6 % (42.0-52.0); Mean Platelet Volume 9.1 fL (7.4-10.4); Red Blood Cell (RBC) Count 2.67 mill/uL (4.70-6.10); White Blood Cell (WBC) Count 10.3 thou/uL (4.8-10.8)
--- NOTE | 2017-01-18 08:07 | RAD ---
CHEST 1 VIEW: HISTORY: Pneumonia. COMPARISON: 01/15/17. FINDINGS: Worsening interstitial and alveolar opacification. The degree of opacification right hemithorax has progressed. Small bilateral effusions are noted. No pneumothorax. IMPRESSION: Worsening interstitial and alveolar opacities. Multilobar infiltrate. POS: [facility]
[2017-01-18] MEDS: Insulin Detemir 100 UNITS/ML 40 UNITS in Pre-Filled Syringe 1 EACH SC SCH ×2 (09:24→21:23)
[2017-01-18] MEDS: Doxycycline 100 MG CAP PO SCH ×2 (09:24→21:29)
[2017-01-18] MEDS: Pantoprazole 40 MG GRANULES PACKET PER TUBE SCH (09:25)
[2017-01-18] MEDS: Cefepime 1 GM, Admixture Fee 1 EACH in Sterile Water 10 ML SLOW IVP SCH (09:43)
[2017-01-18] MEDS: Dextrose 5% in Water 1,000 ML IV SCH (12:09)
[2017-01-18] MEDS ORDERED: Meropenem 1 GM in Sodium Chloride 0.9% 100 ML IVPB SCH (14:00)
[2017-01-18] MEDS ORDERED: MEROPENEM 1 GM/50 ML 1 GM in Sodium Chloride 0.9% 100 ML IVPB SCH (14:00)
--- NOTE | 2017-01-18 14:38 | PRG ---
DATE OF SERVICE: 01/18/2017 SUBJECTIVE: The patient this morning has worsening pulmonary status. OBJECTIVE: VITAL SIGNS: Sats are 96% on BiPAP, pulse 87, blood pressure 97/49. CHEST: Reveals bilateral rhonchi and crackles. CARDIAC: Sinus tachycardia. ABDOMEN: Soft. LABORATORY DATA: Creatinine 1.9, BUN 69. White count 10, H and H is 8 and 25, platelet count is 134 . Cultures are negative. Chest x-ray shows worsening bilateral pulmonary infiltrates. IMPRESSION: Progressive respiratory failure, bilateral pneumonia, encephalopathy. I discussed with his and daughter at length that the patient's condition is getting progressivel y worse. Clearly outlook is poor, though they still want all aggressive treatment, short of intubati on. I am going to do diagnostic therapeutic bronchoscopy and lavage the lungs. This may help him. Continue low-dose Risperdal and continue neb treatments and supportive care. Prognosis is grave. Further recommendations after the bronchoscopy. We may adjust the antibiotics. One-half hour critical care time.
--- NOTE | 2017-01-18 14:48 | OP ---
PROCEDURE: Diagnostic therapeutic bronchoscopy. INDICATIONS: Retained secretions, abdominal x-ray. DESCRIPTION OF PROCEDURE: After informed consent, no sedation was given. Bite block was placed in. . The flexible bronchoscope was then passed. There was copious amount of old blood sitting in the back of his throat which was suctioned, cleaned. The vocal cords were entered which were normal . Upon entering the trachea, there was copious amount of secretions bloody which was suctioned and l avaged. The right lung was inspected initially. The entire right lower lung was occluded with thick bloody mucus which was suctioned and lavaged until completely clear. The left lung was inspected th ereafter. This had less amount of bloody clot which was also suctioned and lavaged until cleared; ho wever, there was slight oozing from the mucosal area. Epinephrine 1:10,000 instilled to control the bleeding. Bronchoscope was removed. He was placed on BiPAP to control the saturation. Bronchoscope was repassed again and both lungs were relavaged with normal saline until completely clear. No furt her bleeding was seen. There was still a fair amount of posterior pharyngeal old clots which was suc tioned and lavaged. He was getting racemic epinephrine NEB treatment, continue BiPAP, continue supportive care. Still do not intubation. We will send his washings for Gram stain and C&S.
[2017-01-18] MEDS: MEROPENEM 1 GM/50 ML 1 GM in Premix Bag 1 BAG IVPB SCH ×2 (16:44→22:09)
[2017-01-18] MEDS ORDERED: Warfarin Sodium 2 MG TAB PO SCH (17:00)
[2017-01-18] MEDS: risperiDONE 0.25 MG TAB PO SCH (21:29)
[2017-01-18] MEDS: Famotidine/PF 20 mg/2ml Vial SLOW IVP SCH (21:29)
[2017-01-18] MEDS: Nebivolol HCl 5 MG TAB PO SCH (21:29)
--- NOTE | 2017-01-18 21:37 | PDOC.PN ---
- Subjective Encounter Start Date: 01/18/17 Encounter Start Time: 19:00 Patient seen and examined. s/p bronch. No overnight events - Objective Resuscitation Status: Resuscitation Status DNI:No Intubation MAR Reviewed: Yes Vital Signs & Weight: Vital Signs (12 hours) Temp Pulse Resp BP Pulse Ox 01/18/17 19:07 78 20 100 01/18/17 16:00 98.6 F 87 19 98/53 L 99 01/18/17 15:34 85 01/18/17 15:33 87 24 H 99 01/18/17 12:17 86 01/18/17 12:16 85 35 H 95 01/18/17 12:00 98.1 F 91 18 89/51 L 94 L Weight Admit Weight 217 lb 9.6 oz Weight 229 lb 4.8 oz I&O: 01/17/17 01/18/17 01/19/17 06:59 06:59 06:59 Intake Total 3460 2567 1350 Balance 3460 2567 1350 Result Diagrams: 01/18/17 05:32 01/18/17 05:32 Additional Labs: Accuchecks 01/18/17 01/18/17 01/18/17 17:50 12:00 05:58 POC Glucose 289 H 219 H 218 H Radiology Reviewed by me: Yes (CXR - worsening) EKG Reviewed by me: Yes (Tele SR) Phys Exam - Physical Examination Constitutional: NAD Respiratory: no wheezing Scat rales at bases/Rhonchi + Cardiovascular: RRR, no rub Gastrointestinal: soft, non-tender, positive bowel sounds Musculoskeletal: no edema Psychiatric: A&O x 3 Dx/Plan - Plan DVT proph w/SCDs IMPRESSION: 1. Acute on chronic hypoxic Resp failure/COPD Exacerbation/HCAP ? Pneumococcal 2. Toxic Metabolic Encephalopathy - slowly improving 3. Swallow dysfunction s/p PEG 12/24 4. Par Afib on Warfarin - INR subtherapeutic 5. HTN/DM2/HLD/Mod Malnutrition due to swallow dysfunction/Elevated troponins due to demand ischemia/Physical deconditioning/CKD 3 PLAN * s/p bronch today * Pulm following * On Meropenem/Doxycycline * AM labs * On Warfarin * Cont other meds as below Review of Systems - Review of Systems Constitutional: negative: Fever, Chills, Sweats, Weakness, Malaise Cardiovascular: negative: Chest Pain, Palpitations, Orthopnea, Paroxysmal Noc. Dyspnea, Edema, Light Headedness - Medications/Allergies Allergies/Adverse Reactions: Allergies Allergy/AdvReac Type Severity Reaction Status Date / Time exenatide [From Byetta] Allergy Severe Verified 11/17/12 04:50 sitagliptin phosphate Allergy Severe Verified 11/17/12 04:50 [From Janjereia] clindamycin Allergy Intermediate Swollen Verified 11/17/12 04:48 Lips erythromycin base Allergy Intermediate Swollen Verified 11/17/12 04:48 [Erythromycin Base] Lips hydrocodone Allergy Intermediate Verified 11/17/12 04:49 Sulfa (Sulfonamide Allergy Intermediate Swollen Verified 11/17/12 04:49 Antibiotics) Lips phenol Allergy Verified 11/17/12 04:50 propoxyphene napsylate Allergy Verified 11/17/12 04:50 [From Darcet-N 100] codeine AdvReac Intermediate overly Verified 01/15/17 17:45 sedated Medications: Current Medications Acetaminophen (Tylenol Elixir) 650 mg PER TUBE Q4H PRN PRN Reason: pain/fever Last Admin: 01/16/17 04:36 Dose: 650 mg Acetaminophen (Tylenol) 650 mg [place] Q4H PRN PRN Reason: Headache/Fever or Pain Albuterol/Ipratropium (Duoneb) 3 ml NEB [id number] [facility] Last Admin: 01/18/17 19:07 Dose: 3 ml Aspirin (Aspirin Chewable) 81 mg PO DAILY [facility] Last Admin: 01/18/17 09:24 Dose: 81 mg Dextrose/Water (Dextrose 50%) 25 gm SLOW IVP PRN PRN PRN Reason: Hypoglycemia Diltiazem HCl (Cardizem) 30 mg PER TUBE TID [facility] Last Admin: 01/18/17 21:29 Dose: 30 mg Doxycycline Hyclate (Vibramycin) 100 mg PO BID [facility] Last Admin: 01/18/17 21:29 Dose: 100 mg Famotidine (Pepcid) 20 mg SLOW IVP Q24HR [facility] Last Admin: 01/18/17 21:29 Dose: 20 mg Glucagon (Glucagon) 1 mg IM PRN PRN PRN Reason: Hypoglycemia Guaifenesin (Mucinex) 600 mg PO 0400,1000,1600,2200 [facility] Last Admin: 01/18/17 16:48 Dose: 600 mg Dextrose/Water (D5w) 1,000 mls @ 0 mls/hr IV .Q0M PRN; As Directed PRN Reason: Hypoglycemia Insulin Detemir 40 units/ (Miscellaneous Medication) 0.4 mls @ 0 mls/hr SC BID [facility] Last Admin: 01/18/17 21:23 Dose: 0.4 mls Dextrose/Water (D5w) 1,000 mls @ 50 mls/hr IV .Q20H [facility] Last Admin: 01/18/17 12:09 Dose: 1,000 mls Meropenem 1 gm/ Device 50 mls @ 100 mls/hr IVPB Q8HR [facility] Last Admin: 01/18/17 16:44 Dose: 50 mls Insulin Human Lispro (Humalog) 0 units SC .AGGRESSIVE SLIDING PRN PRN Reason: Aggressive Correctional Scale Last Admin: 01/18/17 18:24 Dose: 9 units Methylprednisolone Sodium Succinate (Solu-Medrol) 40 mg IVP BID [facility] Last Admin: 01/18/17 21:29 Dose: 40 mg Nebivolol (Bystolic) 5 mg PO HS [facility] Last Admin: 01/18/17 21:29 Dose: 5 mg Ondansetron HCl (Zofran) 4 mg IVP Q6H PRN PRN Reason: Nausea/Vomiting Pantoprazole Sodium (Protonix) 40 mg PER TUBE DAILY [facility] Last Admin: 01/18/17 09:25 Dose: 40 mg Risperidone (Risperidone) 0.25 mg PO HS [facility] Last Admin: 01/18/17 21:29 Dose: 0.25 mg Sodium Chloride (Flush - Normal Saline) 10 ml IVF Q12HR [facility] Last Admin: 01/18/17 21:32 Dose: 10 ml Sodium Chloride (Flush - Normal Saline) 10 ml IVF PRN PRN PRN Reason: Saline Flush Last Admin: 01/16/17 20:40 Dose: 10 ml Sodium Chloride ([place] Nasal [place] 0.65%) 1 ml EA NARE PRN PRN PRN Reason: Nasal Dryness Warfarin Sodium (Coumadin) 2 mg PO 1700 [facility] Last Admin: 01/18/17 16:48 Dose: 2 mg
[2017-01-18] MEDS ORDERED: WARFARIN PO PRN (23:06)
[2017-01-18] MEDS ORDERED: Warfarin Sodium 1 MG TAB PER TUBE SCH (23:15)
[2017-01-19 05:07] LABS: #Eosinphils 0.1 thou/uL (0.0-0.7); #Lymphocytes 0.6 thou/uL (1.20-3.40); #Monocytes 0.3 thou/uL (0.11-0.59); %Eosinophils 0.6 % (0.0-10.0); %Lymphocytes 5.5 % (21.0-51.0); %Monocytes 3.4 % (0.0-10.0); Hematocrit 25.1 % (42.0-52.0); Mean Platelet Volume 9.5 fL (7.4-10.4)
[2017-01-19] MEDS: guaiFENesin ER 600 MG TAB PO SCH ×4 (05:07→21:00)
[2017-01-19 05:08] LABS: Prothrombin Time 15.5 SEC (12.0-14.7)
[2017-01-19 05:26] LABS: Anion Gap 12 mmol/L (10-20); BUN (Urea Nitrogen) 90 mg/dL (8.4-25.7); Calc. Creatinine Clearance 31 mL/min (70-130); Calcium 7.9 mg/dL (7.8-10.44); Carbon Dioxide 23 mmol/L (23-31); Chloride 102 mmol/L (98-107); Estimated GFR-MDRD 21; Magnesium 2.3 mg/dL (1.6-2.6); Phosphorus 3.8 mg/dL (2.3-4.7)
[2017-01-19] MEDS: MEROPENEM 1 GM/50 ML 1 GM in Premix Bag 1 BAG IVPB SCH ×3 (05:33→21:00)
[2017-01-19] MEDS: HumaLOG 300 UNITS/3 ML VIAL SC PRN ×2 (05:42→18:23)
[2017-01-19] MEDS: Dextrose 5% in Water 1,000 ML IV SCH (06:32)
[2017-01-19] MEDS: Dextrose 5% in Water 250 ML IVPB SCH ×4 (06:33→21:03)
[2017-01-19] MEDS: Famotidine 20 MG TAB PO SCH (09:58)
[2017-01-19] MEDS: Insulin Detemir 100 UNITS/ML 40 UNITS in Pre-Filled Syringe 1 EACH SC SCH ×2 (10:00→22:35)
[2017-01-19] MEDS: Doxycycline 100 MG CAP PO SCH ×2 (10:00→20:55)
[2017-01-19] MEDS: Pantoprazole 40 MG GRANULES PACKET PER TUBE SCH (10:04)
--- NOTE | 2017-01-19 11:58 | PRG ---
DATE OF SERVICE: 01/19/2017 SUBJECTIVE: This morning, he is awake, responsive, slightly more responsive than started on BiPAP. OBJECTIVE: VITAL SIGNS: Temperature 97, blood pressure 102/46, respirations 18. CHEST: Reveals bilateral rhonchi. CARDIAC: Normal S1, S2. LABORATORY DATA: White count 10,000, H&H 8 and 25, platelet count 28, creatinine is 2.9, BUN 90. IMPRESSION: Renal failure, supraventricular tachycardia, azotemia, recurrent aspiration, severe deco nditioning. PLAN: Continue steroids, neb treatments, and supportive care. I will follow.
[2017-01-19 14:58] VITALS: BMI 33.5
[2017-01-19] MEDS ORDERED: Warfarin Sodium 3 MG TAB PO SCH (17:00)
[2017-01-19] MEDS ORDERED: Warfarin Sodium 2 MG TAB PO SCH (17:00)
[2017-01-19] MEDS: Nebivolol HCl 5 MG TAB PO SCH (20:55)
[2017-01-19] MEDS: risperiDONE 0.25 MG TAB PO SCH (20:55)
--- NOTE | 2017-01-19 23:55 | PDOC.PN ---
- Subjective Encounter Start Date: 01/19/17 Encounter Start Time: 17:40 Patient seen and examined. Off BiPAP. No overnight events - Objective Resuscitation Status: Resuscitation Status DNI:No Intubation MAR Reviewed: Yes Vital Signs & Weight: Vital Signs (12 hours) Temp Pulse Resp BP Pulse Ox 01/19/17 22:35 80 24 H 111/56 L 94 L 01/19/17 20:54 89 22 H 142/76 H 01/19/17 19:15 90 18 97 01/19/17 19:00 97.6 F 95 26 H 114/50 L 98 01/19/17 15:34 97.7 F 88 16 106/44 L 97 01/19/17 14:44 85 24 H 95 Weight Admit Weight 217 lb 9.6 oz Weight 226 lb 11.2 oz I&O: 01/18/17 01/19/17 01/20/17 06:59 06:59 06:59 Intake Total 2567 2700 750 Balance 2567 2700 750 Result Diagrams: 01/20/17 04:28 01/20/17 04:28 Additional Labs: Accuchecks 01/19/17 01/19/17 01/19/17 18:09 12:06 05:41 POC Glucose 351 H 255 H 279 H EKG Reviewed by me: Yes (Tele SR) Phys Exam - Physical Examination Constitutional: NAD Respiratory: no wheezing, no rhonchi Scat rales at bases Cardiovascular: RRR, no rub Gastrointestinal: soft, positive bowel sounds Dx/Plan - Plan DVT proph w/SCDs IMPRESSION: 1. Acute on chronic hypoxic Resp failure/COPD Exacerbation/HCAP ? Pneumococcal 2. Toxic Metabolic Encephalopathy - slowly improving 3. Swallow dysfunction s/p PEG 12/24 4. Par Afib on Warfarin - INR subtherapeutic 5. HTN/DM2/HLD/Mod Malnutrition due to swallow dysfunction/Elevated troponins due to demand ischemia/Physical deconditioning/CKD 3 PLAN * Cont other meds as below * Pulm following * Cont Atbx * AM labs * On Warfarin Review of Systems - Review of Systems Other: Cannot obtain due to current mentation - Medications/Allergies Allergies/Adverse Reactions: Allergies Allergy/AdvReac Type Severity Reaction Status Date / Time exenatide [From Byetta] Allergy Severe Verified 11/17/12 04:50 sitagliptin phosphate Allergy Severe Verified 11/17/12 04:50 [From Jhonny] clindamycin Allergy Intermediate Swollen Verified 11/17/12 04:48 Lips erythromycin base Allergy Intermediate Swollen Verified 11/17/12 04:48 [Erythromycin Base] Lips hydrocodone Allergy Intermediate Verified 11/17/12 04:49 Sulfa (Sulfonamide Allergy Intermediate Swollen Verified 11/17/12 04:49 Antibiotics) Lips phenol Allergy Verified 11/17/12 04:50 propoxyphene napsylate Allergy Verified 11/17/12 04:50 [From [facility]-N 100] codeine AdvReac Intermediate overly Verified 01/15/17 17:45 sedated Medications: Current Medications Acetaminophen (Tylenol Elixir) 650 mg PER TUBE Q4H PRN PRN Reason: pain/fever Last Admin: 01/16/17 04:36 Dose: 650 mg Acetaminophen (Tylenol) 650 mg [place] Q4H PRN PRN Reason: Headache/Fever or Pain Albuterol/Ipratropium (Duoneb) 3 ml NEB [id number] [facility] Last Admin: 01/19/17 22:35 Dose: 3 ml Aspirin (Aspirin Chewable) 81 mg PO DAILY [facility] Last Admin: 01/19/17 09:58 Dose: 81 mg Dextrose/Water (Dextrose 50%) 25 gm SLOW IVP PRN PRN PRN Reason: Hypoglycemia Diltiazem HCl (Cardizem) 30 mg PER TUBE TID [facility] Last Admin: 01/19/17 20:55 Dose: 30 mg Doxycycline Hyclate (Vibramycin) 100 mg PO BID [facility] Last Admin: 01/19/17 20:55 Dose: 100 mg Famotidine (Pepcid) 20 mg PO Q24HR [facility] Last Admin: 01/19/17 09:58 Dose: 20 mg Glucagon (Glucagon) 1 mg IM PRN PRN PRN Reason: Hypoglycemia Guaifenesin (Mucinex) 600 mg PO 0400,1000,1600,2200 [facility] Last Admin: 01/19/17 21:00 Dose: 600 mg Dextrose/Water (D5w) 1,000 mls @ 0 mls/hr IV .Q0M PRN; As Directed PRN Reason: Hypoglycemia Insulin Detemir 40 units/ (Miscellaneous Medication) 0.4 mls @ 0 mls/hr SC BID [facility] Last Admin: 01/19/17 22:35 Dose: 0.4 mls Meropenem 1 gm/ Device 50 mls @ 100 mls/hr IVPB Q8HR [facility] Last Admin: 01/19/17 21:00 Dose: 50 mls Dextrose/Water (D5w) 250 mls @ 50 mls/hr IVPB .Q5H [facility] Last Admin: 01/19/17 21:03 Dose: 250 mls Insulin Human Lispro (Humalog) 0 units SC .AGGRESSIVE SLIDING PRN PRN Reason: Aggressive Correctional Scale Last Admin: 01/19/17 18:23 Dose: 13 units Methylprednisolone Sodium Succinate (Solu-Medrol) 40 mg IVP BID [facility] Last Admin: 01/19/17 20:56 Dose: 40 mg Miscellaneous Medication (Pharmacy To Dose) 1 each PO PRN PRN PRN Reason: [facility] INR: 2 - 3 Nebivolol (Bystolic) 5 mg PO HS [facility] Last Admin: 01/19/17 20:55 Dose: 5 mg Ondansetron HCl (Zofran) 4 mg IVP Q6H PRN PRN Reason: Nausea/Vomiting Pantoprazole Sodium (Protonix) 40 mg PER TUBE DAILY [facility] Last Admin: 01/19/17 10:04 Dose: 40 mg Risperidone (Risperidone) 0.25 mg PO HS [facility] Last Admin: 01/19/17 20:55 Dose: 0.25 mg Sodium Chloride (Flush - Normal Saline) 10 ml IVF Q12HR [facility] Last Admin: 01/19/17 20:56 Dose: 10 ml Sodium Chloride (Flush - Normal Saline) 10 ml IVF PRN PRN PRN Reason: Saline Flush Last Admin: 01/16/17 20:40 Dose: 10 ml Sodium Chloride ([place] Nasal [place] 0.65%) 1 ml EA NARE PRN PRN PRN Reason: Nasal Dryness Warfarin Sodium (Coumadin) 3 mg PO 1700 [facility] Last Admin: 01/19/17 16:21 Dose: 3 mg
[2017-01-20] MEDS: HumaLOG 300 UNITS/3 ML VIAL SC PRN ×3 (00:25→11:21)
[2017-01-20] MEDS: guaiFENesin ER 600 MG TAB PO SCH ×4 (03:40→20:57)
[2017-01-20] MEDS: Dextrose 5% in Water 250 ML IVPB SCH ×3 (03:41→19:18)
[2017-01-20 05:21] LABS: Anion Gap 11 mmol/L (10-20); BUN (Urea Nitrogen) 104 mg/dL (8.4-25.7); Calc. Creatinine Clearance 27 mL/min (70-130); Calcium 7.8 mg/dL (7.8-10.44); Carbon Dioxide 24 mmol/L (23-31); Chloride 99 mmol/L (98-107); Estimated GFR-MDRD 18
[2017-01-20] MEDS: MEROPENEM 1 GM/50 ML 1 GM in Premix Bag 1 BAG IVPB SCH (05:49)
[2017-01-20 05:54] LABS: Band 9 % (5-11); Hematocrit 24.8 % (42.0-52.0); Mean Platelet Volume 9.1 fL (7.4-10.4); Myelocyte 1 % (0-0); Neutrophil 83 % (42-75); Red Blood Cell (RBC) Count 2.57 mill/uL (4.70-6.10); White Blood Cell (WBC) Count 10.1 thou/uL (4.8-10.8)
--- NOTE | 2017-01-20 08:00 | RAD ---
PORTABLE CHEST: HISTORY: Pneumonia. COMPARISON: 01/18/17. FINDINGS: Bilateral interstitial and hazy alveolar infiltrates are again noted. There is evidence of bilateral effusions. No evidence of significant change. POS: [facility]
[2017-01-20] MEDS ORDERED: Meropenem 500 MG in Sodium Chloride 0.9% 100 ML IVPB SCH (08:45)
--- NOTE | 2017-01-20 08:48 | PRG ---
DATE OF SERVICE: 01/20/2017 This morning he was placed back on noninvasive ventilation. PHYSICAL EXAMINATION: VITAL SIGNS: Sats 100%, blood pressure 105/56, temperature 97, his I's and O's have been 2576 in, ou tput is difficult to assess. CHEST: Chest reveals decreased breath sounds, bilateral rhonchi. CARDIAC: Normal S1, S2. ABDOMEN: Soft. NEURO: Neurologically, he is encephalopathic. LABORATORY: White count 10, H&H 8 and 34, platelet count 160, INR 1.3, glucose 338, BUN and creatini ne 104 and 3.3. IMPRESSION: 1. Respiratory failure. 2. End-stage chronic obstructive pulmonary disease. 3. Aspiration pneumonia. 4. Supraventricular tachycardia. Nephrology has been consulted for ongoing increasing azotemia, most of it appears to be prerenal. Sl ow hydration and supportive care, broad-spectrum antibiotics, PT. Long-term prognosis is poor. I will follow.
[2017-01-20] MEDS: Meropenem 500 MG, Admixture Fee 1 EACH in Sterile Water 10 ML SLOW IVP SCH ×2 (11:06→21:08)
[2017-01-20] MEDS: Pantoprazole 40 MG GRANULES PACKET PER TUBE SCH (11:07)
[2017-01-20] MEDS: Famotidine 20 MG TAB PO SCH (11:18)
[2017-01-20] MEDS: Insulin Detemir 100 UNITS/ML 40 UNITS in Pre-Filled Syringe 1 EACH SC SCH ×2 (11:18→20:55)
--- NOTE | 2017-01-20 13:41 | PDOC.PN ---
- Subjective Encounter Start Date: 01/20/17 Encounter Start Time: 12:00 Subjective: is on bipap -: not fully oriented, opens eyes to verbal stimuli - Objective Resuscitation Status: Resuscitation Status DNI:No Intubation MAR Reviewed: Yes Vital Signs & Weight: Vital Signs (12 hours) Temp Pulse Resp BP Pulse Ox 01/20/17 11:16 74 01/20/17 11:14 73 17 98 01/20/17 07:32 75 01/20/17 07:29 75 26 H 96 01/20/17 07:16 97.1 F L 76 24 H 105/56 L 96 01/20/17 05:51 73 18 115/58 L 95 01/20/17 05:20 69 01/20/17 04:00 98.0 F 82 26 H 122/48 L 93 L 01/20/17 02:14 81 24 H 118/59 L 95 01/20/17 01:52 84 22 H 93 L Weight Admit Weight 217 lb 9.6 oz Weight 231 lb 5 oz I&O: 01/19/17 01/20/17 01/21/17 06:59 06:59 06:59 Intake Total 2700 2200 Balance 2700 2200 Result Diagrams: 01/20/17 04:28 01/20/17 04:28 Additional Labs: Accuchecks 01/20/17 01/20/17 01/19/17 11:20 06:10 23:51 POC Glucose 296 H 338 H 280 H 01/19/17 18:09 POC Glucose 351 H Phys Exam - Physical Examination HEENT: PERRLA, sclera anicteric dry mucosa Neck: no JVD, supple Respiratory: no wheezing, no rales rhonchi+ Cardiovascular: RRR, no significant murmur Gastrointestinal: soft, non-tender, positive bowel sounds peg+ Musculoskeletal: pulses present, edema present Neurological: non-focal, moves all 4 limbs Dx/Plan (1) Acute on chronic respiratory failure with hypoxia and hypercapnia Code(s): J96.21 - ACUTE AND CHRONIC RESPIRATORY FAILURE WITH HYPOXIA; J96.22 - ACUTE AND CHRONIC RESPIRATORY FAILURE WITH HYPERCAPNIA Status: Acute (2) Pneumonia Code(s): J18.9 - PNEUMONIA, UNSPECIFIED ORGANISM Status: Acute Qualifiers: Pneumonia type: aspiration pneumonia Aspiration pneumonia type: due to gastric secretions (3) Acute worsening of stage 3 chronic kidney disease Code(s): N18.3 - CHRONIC KIDNEY DISEASE, STAGE 3 (MODERATE) Status: Acute (4) COPD exacerbation Code(s): J44.1 - CHRONIC OBSTRUCTIVE PULMONARY DISEASE W (ACUTE) EXACERBATION Status: Acute (5) Chronic diastolic (congestive) heart failure Code(s): I50.32 - CHRONIC DIASTOLIC (CONGESTIVE) HEART FAILURE Status: Chronic (6) Dyslipidemia Code(s): E78.5 - HYPERLIPIDEMIA, UNSPECIFIED Status: Chronic (7) GERD (gastroesophageal reflux disease) Code(s): K21.9 - GASTRO-ESOPHAGEAL REFLUX DISEASE WITHOUT ESOPHAGITIS Status: Chronic Qualifiers: Esophagitis presence: esophagitis presence not specified Qualified Code(s) : K21.9 - Gastro-esophageal reflux disease without esophagitis (8) HTN (hypertension) Code(s): I10 - ESSENTIAL (PRIMARY) HYPERTENSION Status: Chronic Qualifiers: Hypertension type: essential hypertension Qualified Code(s): I10 - Essential (primary) hypertension (9) Obesity (BMI 30.0-34.9) Code(s): E66.9 - OBESITY, UNSPECIFIED Status: Chronic (10) Paroxysmal atrial fibrillation Code(s): I48.0 - PAROXYSMAL ATRIAL FIBRILLATION Status: Chronic (11) Physical deconditioning Code(s): R53.81 - OTHER MALAISE Status: Chronic Comment: Severe (12) Acute metabolic encephalopathy Code(s): G93.41 - METABOLIC ENCEPHALOPATHY Status: Acute (13) Chronic anemia Code(s): D64.9 - ANEMIA, UNSPECIFIED Status: Chronic - Plan renal function is worsoning, its 104/3.3 -: on meropenem, nebs, steroids -: risperdal small dose HS -: poor prognosis, severe deconditioning, has not made progress -: may dc coumadin if ok with cardio * . Review of Systems - Medications/Allergies Allergies/Adverse Reactions: Allergies Allergy/AdvReac Type Severity Reaction Status Date / Time exenatide [From Byetta] Allergy Severe Verified 11/17/12 04:50 sitagliptin phosphate Allergy Severe Verified 11/17/12 04:50 [From Januvia] clindamycin Allergy Intermediate Swollen Verified 11/17/12 04:48 Lips erythromycin base Allergy Intermediate Swollen Verified 11/17/12 04:48 [Erythromycin Base] Lips hydrocodone Allergy Intermediate Verified 11/17/12 04:49 Sulfa (Sulfonamide Allergy Intermediate Swollen Verified 11/17/12 04:49 Antibiotics) Lips phenol Allergy Verified 11/17/12 04:50 propoxyphene napsylate Allergy Verified 11/17/12 04:50 [From Socratest-N 100] codeine AdvReac Intermediate overly Verified 01/15/17 17:45 sedated Medications: Current Medications Acetaminophen (Tylenol Elixir) 650 mg PER TUBE Q4H PRN PRN Reason: pain/fever Last Admin: 01/16/17 04:36 Dose: 650 mg Acetaminophen (Tylenol) 650 mg [place] Q4H PRN PRN Reason: Headache/Fever or Pain Albuterol/Ipratropium (Duoneb) 3 ml NEB [id number] [facility] Last Admin: 01/20/17 11:14 Dose: 3 ml Aspirin (Aspirin Chewable) 81 mg PO DAILY [facility] Last Admin: 01/20/17 11:07 Dose: 81 mg Dextrose/Water (Dextrose 50%) 25 gm SLOW IVP PRN PRN PRN Reason: Hypoglycemia Diltiazem HCl (Cardizem) 30 mg PER TUBE TID [facility] Last Admin: 01/20/17 11:07 Dose: 30 mg Famotidine (Pepcid) 20 mg PO Q24HR [facility] Last Admin: 01/20/17 11:18 Dose: 20 mg Glucagon (Glucagon) 1 mg IM PRN PRN PRN Reason: Hypoglycemia Guaifenesin (Mucinex) 600 mg PO 0400,1000,1600,2200 [facility] Last Admin: 01/20/17 11:18 Dose: 600 mg Dextrose/Water (D5w) 1,000 mls @ 0 mls/hr IV .Q0M PRN; As Directed PRN Reason: Hypoglycemia Insulin Detemir 40 units/ (Miscellaneous Medication) 0.4 mls @ 0 mls/hr SC BID [facility] Last Admin: 01/20/17 11:18 Dose: 0.4 mls Dextrose/Water (D5w) 250 mls @ 50 mls/hr IVPB .Q5H [facility] Last Admin: 01/20/17 11:07 Dose: 250 mls Meropenem 500 mg/Miscellaneous Medication 1 each/ Sterile Water 10 mls @ 120 mls/hr SLOW IVP Q12HR [facility] Last Admin: 01/20/17 11:06 Dose: 10 mls Insulin Human Lispro (Humalog) 0 units SC .AGGRESSIVE SLIDING PRN PRN Reason: Aggressive Correctional Scale Last Admin: 01/20/17 11:21 Dose: 9 units Methylprednisolone Sodium Succinate (Solu-Medrol) 40 mg IVP DAILY [facility] Last Admin: 01/20/17 11:07 Dose: 40 mg Miscellaneous Medication (Pharmacy To Dose) 1 each PO PRN PRN PRN Reason: [facility] INR: 2 - 3 Nebivolol (Bystolic) 5 mg PO HS [facility] Last Admin: 01/19/17 20:55 Dose: 5 mg Ondansetron HCl (Zofran) 4 mg IVP Q6H PRN PRN Reason: Nausea/Vomiting Pantoprazole Sodium (Protonix) 40 mg PER TUBE DAILY [facility] Last Admin: 01/20/17 11:07 Dose: 40 mg Risperidone (Risperidone) 0.25 mg PO [facility] Last Admin: 01/19/17 20:55 Dose: 0.25 mg Sodium Chloride (Flush - Normal Saline) 10 ml IVF Q12HR [facility] Last Admin: 01/20/17 11:21 Dose: 10 ml Sodium Chloride (Flush - Normal Saline) 10 ml IVF PRN PRN PRN Reason: Saline Flush Last Admin: 01/16/17 20:40 Dose: 10 ml Sodium Chloride ([place] Nasal [place] 0.65%) 1 ml EA NARE PRN PRN PRN Reason: Nasal Dryness Warfarin Sodium (Coumadin) 5 mg PO 1700 [facility]
[2017-01-20] MEDS ORDERED: Warfarin Sodium 5 MG TAB PO SCH (17:00)
[2017-01-20] MEDS ORDERED: Bisacodyl 10 MG SUPP PR PRN (17:41)
[2017-01-20] MEDS ORDERED: Sodium Chloride 0.9% 1,000 ML IV SCH (18:00)
--- NOTE | 2017-01-20 19:44 | RAD ---
AP VIEW ABDOMEN 01/20/17 HISTORY: PEG tube obstruction. Single AP view left abdomen is obtained. There is a gastrostomy tube in place. Radiopaque contrast is seen in the lumen of the PEG tube as well as in the stomach and proximal small bowel. Filling defect s appear to be present in the PEG tube. This may represent air or debris within the lumen. IMPRESSION: Radiopaque contrast is seen passing from the PEG tube into the stomach. POS: [facility]
[2017-01-20] MEDS: Nebivolol HCl 5 MG TAB PO SCH (20:53)
[2017-01-20] MEDS: risperiDONE 0.25 MG TAB PO SCH (20:54)
[2017-01-20] MEDS ORDERED: Docusate Sodium 100 MG/10 ML UDCUP PO SCH (21:00)
[2017-01-21] MEDS ORDERED: Furosemide 40 MG/4 ML VIAL SLOW IVP SCH (04:00)
[2017-01-21 04:30] LABS: Anion Gap 13 mmol/L (10-20); BUN (Urea Nitrogen) 116 mg/dL (8.4-25.7); Calc. Creatinine Clearance 28 mL/min (70-130); Carbon Dioxide 25 mmol/L (23-31); Chloride 101 mmol/L (98-107); Estimated GFR-MDRD 19
[2017-01-21] MEDS: guaiFENesin ER 600 MG TAB PO SCH (04:43)
[2017-01-21 04:58] VITALS: TEMP 96.1
[2017-01-21 05:05] LABS: Band 2 % (5-11); Hematocrit 25.9 % (42.0-52.0); Macrocytosis SLIGHT = 6-15 cells (100X) (0-5/hpf); Mean Platelet Volume 8.5 fL (7.4-10.4); Metamyelocyte 1 % (0-0); Neutrophil 80 % (42-75); Nucleated RBC 1 % (0); Reactive Lymphocytes 1 % (0-10); Red Blood Cell (RBC) Count 2.71 mill/uL (4.70-6.10); White Blood Cell (WBC) Count 17.2 thou/uL (4.8-10.8)
[2017-01-21 06:35] VITALS: BP 120/49
--- NOTE | 2017-01-21 08:15 | PRG ---
DATE OF SERVICE: 01/21/2017 This morning he is less responsive, he is getting dialyzed this morning. PHYSICAL EXAMINATION: VITAL SIGNS: His blood pressure is low at 80/60, temperature 97, blood pressure 120/49. His I's and O's are 220 in, output difficult to assess. CHEST: Bilateral rhonchi. CARDIAC: Normal S1, S2, no gallops. ABDOMEN: Soft. NEURO: He is encephalopathic. His white count is 75, H&H 8 and 25, platelet count 259, creatinine 3, BUN 116. X-ray shows bilateral infiltrates, left greater than right. IMPRESSION: 1. Respiratory failure. 2. End-stage chronic obstructive pulmonary disease. 3. Pneumonia, aspiration. 4. Supraventricular tachycardia. PLAN: Hold all diuretics, blood pressure medications. Supportive care. Will discuss with the . They made him a DNR. Prognosis remains grave.
--- NOTE | 2017-01-21 08:58 | RAD ---
PORTABLE AP CHEST XRAY: DATE: 01/21/17. HISTORY: Shortness of breath. COMPARISON: 01/20/17. FINDINGS: Again noted are asymmetric bilateral interstitial and alveolar opacities which occupy the majority of the left upper and mid lung zone as well as at the right lung base. There are also probable small b ilateral pleural effusions. Cardiac silhouette is magnified by projection. Pulmonary vasculature is within normal limits. No other interval change. IMPRESSION: Findings which may be related to either multifocal pneumonia versus asymmetric pulmonary edema. Foll owup to resolution is recommended. POS: [facility]
[2017-01-21] MEDS ORDERED: Insulin Detemir 100 UNITS/ML 20 UNITS in Pre-Filled Syringe 1 EACH SC SCH (09:00)
--- NOTE | 2017-01-21 14:03 | DS ---
DATE OF SERVICE: 01/21/2017 SUBJECTIVE: A 76-year old gentleman, who this morning quietly had cardiopulmonary arrest. He was pronounced at 08:24 a.m. on 01/21/2017. His family is at bedside. He had NO spontaneous respirations and blood pressure. Pupils are fixed and dilated. FINAL DIAGNOSES: 1. Acute on chronic respiratory failure. 2. Aspiration pneumonia. 3. Chronic obstructive pulmonary disease. 4. Renal failure. 5. Diabetes. 6. Severe deconditioning. 7. Encephalopathy. 8. Atrial fibrillation. PLAN: The body was released to the home and no autopsy being performed. [facility]
--- NOTE | 2017-01-21 14:06 | PDOC.PN ---
- Subjective Encounter Start Date: 01/21/17 Encounter Start Time: 06:50 Subjective: is in agonal breathing, at bedside wants him to be DNR -: heart rate initially 40's going up to 66/min -: on bipap with max oxygen - Objective Resuscitation Status: Resuscitation Status DNR:Do Not Resuscitate MAR Reviewed: Yes Vital Signs & Weight: Vital Signs (12 hours) Temp Pulse Resp BP Pulse Ox 01/21/17 06:34 65 24 H 120/49 L 96 01/21/17 04:00 96.1 F L 82 16 97/55 L 100 01/21/17 02:26 74 Weight Admit Weight 217 lb 9.6 oz Weight 238 lb I&O: 01/20/17 01/21/17 01/22/17 06:59 06:59 06:59 Intake Total 2200 820 Balance 2200 820 Result Diagrams: 01/21/17 04:00 01/21/17 04:00 Additional Labs: Accuchecks 01/21/17 01/21/17 01/20/17 05:39 01:00 18:36 POC Glucose 71 125 H 180 H 01/20/17 17:06 POC Glucose 185 H Phys Exam - Physical Examination HEENT: sclera anicteric dry mucosa Neck: no JVD, supple Respiratory: no wheezing rhonchi Cardiovascular: RRR, no significant murmur Gastrointestinal: soft, no distention, positive bowel sounds Musculoskeletal: pulses present, edema present Neurological: non-focal obtunded Dx/Plan (1) Acute on chronic respiratory failure with hypoxia and hypercapnia Code(s): J96.21 - ACUTE AND CHRONIC RESPIRATORY FAILURE WITH HYPOXIA; J96.22 - ACUTE AND CHRONIC RESPIRATORY FAILURE WITH HYPERCAPNIA Status: Acute (2) Pneumonia Code(s): J18.9 - PNEUMONIA, UNSPECIFIED ORGANISM Status: Acute Qualifiers: Pneumonia type: aspiration pneumonia Aspiration pneumonia type: due to gastric secretions (3) Acute worsening of stage 3 chronic kidney disease Code(s): N18.3 - CHRONIC KIDNEY DISEASE, STAGE 3 (MODERATE) Status: Acute (4) COPD exacerbation Code(s): J44.1 - CHRONIC OBSTRUCTIVE PULMONARY DISEASE W (ACUTE) EXACERBATION Status: Acute (5) Chronic diastolic (congestive) heart failure Code(s): I50.32 - CHRONIC DIASTOLIC (CONGESTIVE) HEART FAILURE Status: Chronic (6) Dyslipidemia Code(s): E78.5 - HYPERLIPIDEMIA, UNSPECIFIED Status: Chronic (7) GERD (gastroesophageal reflux disease) Code(s): K21.9 - GASTRO-ESOPHAGEAL REFLUX DISEASE WITHOUT ESOPHAGITIS Status: Chronic Qualifiers: Esophagitis presence: esophagitis presence not specified Qualified Code(s) : K21.9 - Gastro-esophageal reflux disease without esophagitis (8) HTN (hypertension) Code(s): I10 - ESSENTIAL (PRIMARY) HYPERTENSION Status: Chronic Qualifiers: Hypertension type: essential hypertension Qualified Code(s): I10 - Essential (primary) hypertension (9) Obesity (BMI 30.0-34.9) Code(s): E66.9 - OBESITY, UNSPECIFIED Status: Chronic (10) Paroxysmal atrial fibrillation Code(s): I48.0 - PAROXYSMAL ATRIAL FIBRILLATION Status: Chronic (11) Physical deconditioning Code(s): R53.81 - OTHER MALAISE Status: Chronic Comment: Severe (12) Acute metabolic encephalopathy Code(s): G93.41 - METABOLIC ENCEPHALOPATHY Status: Acute (13) Chronic anemia Code(s): D64.9 - ANEMIA, UNSPECIFIED Status: Chronic - Plan pt was evaluated by me and this am -: went into agonal breathing and breathed his last at 8.24am -: body will be released to family per hosp protocol -: had multiple organ failure with poor prognosis * .
--- NOTE | 2017-01-21 14:32 | DS ---
DATE OF ADMISSION: 01/12/2017 DATE OF DISCHARGE: 01/21/2017 TIME OF : 08:24 a.m. this morning. PRIMARY CAUSE OF : Multiple organ failure from last 9 days, acute respiratory failure with hypo whitley and hypercarbia 9 days, acute on COPD exacerbation 9 days, severe physical deconditioning 25 days . SECONDARY CAUSES OF : Paroxysmal atrial fibrillation, diabetes mellitus type 2, dyslipidemia, m alnutrition with dysphagia and PEG feeding. BRIEF COURSE DURING HOSPITALIZATION: The patient got admitted on 01/12/2017 for shortness of breath and hypoxia at the group home. He was recently discharged on to the group home for further r ecuperation and rehabilitation. The patient has had severe deconditioning from last 20-25 days due t o severe respiratory failure and COPD exacerbation. He was placed on BiPAP and hospitalized to [facility]. He was on broad spectrum antibiotics along with nebulizations and steroids. He was closely monitor ed by Dr. Steve, his exchange underwriting consultant as well. He has been in this hospital from 12/24/2016, except for 3 days till the time of his . He has had severe deconditioning and has not really improved. At this time he progressively declined. His renal function also got worse with discharge BUN and creat inine of 116 and 3.25. His made him DNR this morning. He went into respiratory distress and fi jean went into agonal breathing and was declared at 8:24 a.m. The family was at bedside and the bod y will be released per hospital protocol.
== END 2017-01-21 10:55 | disposition expired | DRG 166 ==
LOC: ERS 10:11 → IMCU/EMU 13:43
PROVIDERS: ADMIT Internal Medicine Infectious Disease; ATTEND Internal Medicine Infectious Disease
PROC: 0B918ZZ Drainage of Trachea, Via Natural or Artificial Opening Endoscopic (ICD-10-PCS; principal; 2017-01-19)
PROC: 0B9M8ZX Drainage of Bilateral Lungs, Via Natural or Artificial Opening Endoscopic, Diagnostic (ICD-10-PCS; 2017-01-19)
PROC: 3E0F8GC Introduction of Other Therapeutic Substance into Respiratory Tract, Via Natural or Artificial Opening Endoscopic (ICD-10-PCS; 2017-01-19)
PROC: 5A09357 Assistance with Respiratory Ventilation, Less than 24 Consecutive Hours, Continuous Positive Airway Pressure (ICD-10-PCS; 2017-01-19)
DX: J96.21 Acute and chronic respiratory failure with hypoxia (principal); J69.0 Pneumonitis due to inhalation of food and vomit; G93.41 Metabolic encephalopathy; N17.9 Acute kidney failure, unspecified; E44.0 Moderate protein-calorie malnutrition; E87.0 Hyperosmolality and hypernatremia; R13.12 Dysphagia, oropharyngeal phase; I13.0 Hypertensive heart and chronic kidney disease with heart failure and stage 1 through stage 4 chronic kidney disease, or unspecified chronic kidney disease; I50.32 Chronic diastolic (congestive) heart failure; I48.92 Unspecified atrial flutter; I24.8 Other forms of acute ischemic heart disease; I47.1 Supraventricular tachycardia; J44.1 Chronic obstructive pulmonary disease with (acute) exacerbation; I48.0 Paroxysmal atrial fibrillation; E11.22 Type 2 diabetes mellitus with diabetic chronic kidney disease; J96.22 Acute and chronic respiratory failure with hypercapnia; N18.3 Chronic kidney disease, stage 3 (moderate); E11.65 Type 2 diabetes mellitus with hyperglycemia; E78.5 Hyperlipidemia, unspecified; Z79.01 Long term (current) use of anticoagulants; Z79.82 Long term (current) use of aspirin; Z79.4 Long term (current) use of insulin; Z88.1 Allergy status to other antibiotic agents; Z88.5 Allergy status to narcotic agent; Z88.8 Allergy status to other drugs, medicaments and biological substances; E66.9 Obesity, unspecified; Z68.35 Body mass index [BMI] 35.0-35.9, adult; Y95 Nosocomial condition; Z66 Do not resuscitate; I25.10 Atherosclerotic heart disease of native coronary artery without angina pectoris; I46.9 Cardiac arrest, cause unspecified; Z93.1 Gastrostomy status; Z96.41 Presence of insulin pump (external) (internal); M10.9 Gout, unspecified; D63.1 Anemia in chronic kidney disease; Z86.73 Personal history of transient ischemic attack (TIA), and cerebral infarction without residual deficits; I35.1 Nonrheumatic aortic (valve) insufficiency; Z87.891 Personal history of nicotine dependence; E86.0 Dehydration; E11.42 Type 2 diabetes mellitus with diabetic polyneuropathy; K21.9 Gastro-esophageal reflux disease without esophagitis
CPT/HCPCS: 36415; 36416; 70450; 71010; 74000; 80048; 80053; 82040; 82553; 83735; 83880; 84100; 84484; 85025; 85610; 87040; 87070; 87205; 93005; 94640; 94660; 94664; 94760; 96365; 96366; 96375; A4216; G8978-GP-CN; G8979-GP-CM; G8987-GO-CM; G8988-GO-CK; G8996-GN-CN; G8997-GN-CL; J0692; J1815; J1940; J1956; J2020; J2185; J2543; J3370; J7050; J7070; J7620